=== PATIENT | male | born 1955 | race Caucasian/White ===

== ENCOUNTER 2017-06-07 13:31 | Inpatient (IN) | payer SELFPAY ==
[~2017-06-07] VITALS: Ht 172.7 cm; Wt 120.5 kg
[2017-06-07] VITALS (7 sets, daily range): BP systolic 90–124; BP diastolic 58–63; PULSE 77–94; RESP 18–20; TEMP 98.8; O2SAT 95–99
[~2017-06-07 13:31] MED LIST: AMIODARONE HCL 150 MG/3 ML VIAL IV ONE; DOPamine INJ PREMIX 500 ML IV ONE
--- NOTE | 2017-06-07 13:49 | PD ---
HPI Chief Complaint: cardiac arrhythmia Time Seen by Provider: 13:38 Travel History International Travel<30 days: No Contact w/Intl Traveler<30days: No Traveled to known affect area: No History of Present Illness HPI 62-year-old male was brought in by EMS after cardiac arrest. Patient was witnessed to have a syncopal episode. Chest compressions started by bystander. EMS was called. Patient was found to be in V. fib. Patient was defibrillated 2. Patient originally was intubated and ET tube was removed subsequently after patient woke up. Patient was transported to the ED for evaluation. Patient denies any headache. Patient does short that he had chest pain prior to the syncopal episode. Patient states that he has aching chest pain substernal now. Patient denies any Shortness of breath. Patient denies abdominal pain. Patient denies any focal weakness or numbness of extremity. Patient has history of CAD status post LA in 2007. Patient status post stent placement on aspirin 81 mg daily along with Plavix. Patient has history hypertension. Patient denies history of diabetes. Patient states that he probably has hyperlipidemia. Patient smokes cigars Daily. PFSH Social History Tobacco Use: No Allergies-Medications (Allergen,Severity, Reaction): Uncoded Allergies: PCN (Adverse Reaction, Mild, 06/07/17) Reported Meds & Prescriptions Reported Meds & Active Scripts Active Review of Systems General / Constitutional: No: Fever Eyes: No: Visual changes HENT: No: Headaches Cardiovascular: Positive: Chest Pain or Discomfort Respiratory: No: Shortness of Breath Gastrointestinal: No: Abdominal Pain Genitourinary: No: Dysuria Musculoskeletal: No: Pain Skin: No Rash Neurologic: Positive: Syncope, No: Weakness Psychiatric: No: Depression Endocrine: No: Polydipsia Hematologic/Lymphatic: No: Easy Bruising Physical Exam Narrative GENERAL: Well-nourished, well-developed patient. SKIN: Focused skin assessment warm/dry. Skin abrasion left chest wall. HEAD: Normocephalic. EYES: No scleral icterus. No injection or drainage. NECK: Supple, trachea midline. No JVD or lymphadenopathy. CARDIOVASCULAR: Regular rate and rhythm without murmurs, gallops, or rubs. RESPIRATORY: Breath sounds equal bilaterally. No accessory muscle use. GASTROINTESTINAL: Abdomen soft, non-tender, nondistended. MUSCULOSKELETAL: No cyanosis, or edema. BACK: Nontender without obvious deformity. No CVA tenderness. Neurologic exam normal. Data Data Last Documented VS Vital Signs Date Time Temp Pulse Resp B/P (MAP) Pulse Ox O2 Delivery O2 Flow Rate FiO2 06/07/17 13:43 92 18 96 Room Air 06/07/17 13:43 124/58 (80) Orders Orders Electrocardiogram (06/07/17 13:38) Complete Blood Count With Diff (06/07/17 13:38) Comprehensive Metabolic Panel (06/07/17 13:38) Creatine Kinase (Cpk) (06/07/17 13:38) Troponin I (06/07/17 13:38) Prothrombin Time / Inr (Pt) (06/07/17 13:38) Act Partial Throm Time (Ptt) (06/07/17 13:38) Urinalysis - C+S If Indicated (06/07/17 13:38) Magnesium (Mg) (06/07/17 13:38) Thyroid Stimulating Hormone (06/07/17 13:38) Phosphorus (Po4) (06/07/17 13:38) Chest, Single Ap (06/07/17 13:38) Iv Access Insert/Monitor (06/07/17 13:38) Ecg Monitoring (06/07/17 13:38) Oximetry (06/07/17 13:38) Aspirin (Aspirin) (06/07/17 15:15) Nitroglycerin 2% Oint (Nitroglycerin 2% (06/07/17 15:15) Heparin-D5w 25,000 U/250 Ml (Heparin-D5w (06/07/17 15:15) Ondansetron Inj (Zofran Inj) (06/07/17 15:30) Consult Cardiology (06/07/17 ) Cbc No Diff, Includes Plts (06/10/17 06:00) Occult Blood (Hemoccult) Stool (06/07/17 15:46) Heparin Inj (Heparin Inj) (06/07/17 16:00) (Hub Use Only)Inp Phy Cons/Ref (06/07/17 ) Admit Order (Ed Use Only) (06/07/17 16:07) Labs Laboratory Tests Test 06/07/17 13:50 White Blood Count 9.8 TH/MM3 Red Blood Count 4.82 MIL/MM3 Hemoglobin 15.8 GM/DL Hematocrit 45.7 % Mean Corpuscular Volume 94.8 FL Mean Corpuscular Hemoglobin 32.9 PG Mean Corpuscular Hemoglobin Concent 34.7 % Red Cell Distribution Width 13.2 % Platelet Count 194 TH/MM3 Mean Platelet Volume 8.1 FL Neutrophils (%) (Auto) 57.8 % Lymphocytes (%) (Auto) 28.1 % Monocytes (%) (Auto) 9.9 % Eosinophils (%) (Auto) 3.9 % Basophils (%) (Auto) 0.3 % Neutrophils # (Auto) 5.6 TH/MM3 Lymphocytes # (Auto) 2.7 TH/MM3 Monocytes # (Auto) 1.0 TH/MM3 Eosinophils # (Auto) 0.4 TH/MM3 Basophils # (Auto) 0.0 TH/MM3 CBC Comment DIFF FINAL Differential Comment Prothrombin Time 11.0 SEC Prothromb Time International Ratio 1.0 RATIO Activated Partial Thromboplast Time 23.7 SEC Blood Urea Nitrogen 20 MG/DL Creatinine 1.37 MG/DL Random Glucose 158 MG/DL Total Protein 7.9 GM/DL Albumin 3.9 GM/DL Calcium Level 9.0 MG/DL Phosphorus Level 7.6 MG/DL Magnesium Level 2.3 MG/DL Alkaline Phosphatase 73 U/L Aspartate Amino Transf (AST/SGOT) 143 U/L Alanine Aminotransferase (ALT/SGPT) 161 U/L Total Bilirubin 0.4 MG/DL Sodium Level 137 MEQ/L Potassium Level 4.5 MEQ/L Chloride Level 102 MEQ/L Carbon Dioxide Level 20.2 MEQ/L Anion Gap 15 MEQ/L Estimat Glomerular Filtration Rate 53 ML/MIN Hemoglobin A1c 5.9 % Total Creatine Kinase 193 U/L Troponin I 0.10 NG/ML Thyroid Stimulating Hormone 3rd Gen 9.200 uIU/ML [facility] Medical Decision Making Medical Screen Exam Complete: Yes Emergency Medical Condition: Yes Interpretation(s) EKG shows sinus rhythm with ST depression on anterior lateral leads. CBC within normal limit. By helicopter dispatcher 20.2. BUN 20. Creatinine 1.37. GFR 53. Glucose 158. Phosphorous 7.6. AST 143. ALT 161. Troponin 0.1. TSH 9.2. Chest x- ray shows no acute consolidation. Differential Diagnosis Differential diagnosis including cardiac arrhythmia, LA, electrolyte imbalance. Narrative Course 62-year-old male status post cataract arrest secondary to V. fib. Patient was defibrillated twice. Patient's in sinus rhythm now. History CAD status post LA in the past. Aspirin 325 mg by mouth given. Nitro paste 1 inch on chest wall. Heparin bolus and drip given. Patient had an episode of syncope with V. fib and V. tach on monitor. Patient did regain sinus rhythm without intervention. Manager Environmental Dr. Perdomo was informed. STEMI alert was called. Patient was taken to Associate Technician. Critical Care Narrative Aggregate critical care time was 60 minutes. Time to perform other separately billable procedures was not included in the critical care time. My time did not include minutes spent treating any other patients simultaneously or on activities that did not directly contribute to the patient's treatment. The services I provided to this patient were to treat and/or prevent clinically significant deterioration that could result in: I provided critical care services requiring my management, as noted below: Chart data review, documentation time, medication orders and management, vital sign assessments/reviewing monitor data, ordering and reviewing lab tests, ordering and interpreting/reviewing x-rays and diagnostic studies, care of the patient and discussion of the patient with the admitting physicians. Diagnosis Primary Impression: Ventricular fibrillation Additional Impression: Cardiac arrest Admitting Information Admitting Physician Requests: Admit Lukasz Durbin MD Jun 07, 2017 13:49
[2017-06-07 14:10] LABS: AUTOMATED NEUTROPHIL # 5.6 TH/MM3 (1.8-7.7); BASOPHIL % 0.3 % (0.0-2.0); EOSINOPHIL # 0.4 TH/MM3 (0-0.4); EOSINOPHIL % 3.9 % (0.0-4.0); HEMATOCRIT 45.7 % (39.0-51.0); HEMO FLAGS DIFF FINAL; LYMPH % 28.1 % (9.0-44.0); LYMPHOCYTE # 2.7 TH/MM3 (1.0-4.8); MEAN CELL VOLUME 94.8 FL (80.0-100.0); MEAN CORPUSCULAR HEMOGLOBIN 32.9 PG (27.0-34.0); MEAN CORPUSCULAR HGB CONC 34.7 % (32.0-36.0); MONO % 9.9 % (0.0-8.0); NEUT % 57.8 % (16.0-70.0); PLATELET COUNT 194 TH/MM3 (150-450); RED BLOOD COUNT 4.82 MIL/MM3 (4.50-5.90); RED CELL DISTRIBUTION WIDTH 13.2 % (11.6-17.2); WHITE BLOOD COUNT 9.8 TH/MM3 (4.0-11.0)
[2017-06-07 14:17] LABS: APTT (PATIENT) 23.7 SEC (24.3-30.1)
[2017-06-07 14:37] LABS: ALT (GPT) 161 U/L (12-78)
[2017-06-07 14:38] LABS: ANION GAP 15 MEQ/L (5-15); AST (GOT) 143 U/L (15-37); BICARBONATE 20.2 MEQ/L (21.0-32.0); BLOOD UREA NITROGEN 20 MG/DL (7-18); CHLORIDE 102 MEQ/L (98-107); GLOMERULAR FILTRATION RATE 53 ML/MIN (>89); MAGNESIUM 2.3 MG/DL (1.5-2.5); POTASSIUM 4.5 MEQ/L (3.5-5.1); SODIUM (NA) 137 MEQ/L (136-145)
[2017-06-07 14:46] LABS: ALKALINE PHOSPHATASE 73 U/L (45-117); CREATINE KINASE 193 U/L (39-308); TOTAL BILIRUBIN ADULT 0.4 MG/DL (0.2-1.0)
[2017-06-07] MEDS ORDERED: ASPIRIN 325 MG TAB PO ONE (15:15)
[2017-06-07] MEDS ORDERED: NITROGLYCERIN 2% OINT 1 GM PACKET TOPICAL ONE (15:15)
[2017-06-07] MEDS ORDERED: ONDANSETRON HCL 4 MG/2 ML VIAL IV PUSH ONE (15:30)
--- NOTE | 2017-06-07 15:47 | RADRPT ---
EXAM DATE/TIME: 06/07/2017 15:29 [place] COMPARISON: No previous studies available for comparison. INDICATIONS : Shortness of breath. MEDICAL HISTORY : None. SURGICAL HISTORY : None. ENCOUNTER: Initial ACUITY: 1 day PAIN SCORE: 5/10 LOCATION: Left upper chest FINDINGS: A single view of the chest demonstrates the lungs to be symmetrically aerated without evidence of mas s, infiltrate or effusion. The cardiomediastinal contours are unremarkable. Degenerative changes in the lower thoracic spine.. CONCLUSION: The lungs are clear. Willie Vasquez MD on June 07, 2017 at 15:45 Board Certified Radiologist. This report was verified electronically.
[2017-06-07] MEDS: HEPARIN-D5W 25,000 U/250 ML 250 ML IV PRN (15:52)
[2017-06-07] MEDS ORDERED: HEPARIN SODIUM - IV 10,000 UNITS/10 ML VIAL IV ONE (16:00)
[2017-06-07] MEDS: SODIUM CHLOR 0.9% 1000 ML INJ 1,000 ML IV SCH (16:33)
[2017-06-07] MEDS ORDERED: MORPHINE SULFATE 4 MG/ML INJ IV PUSH PRN (16:45)
[2017-06-07] MEDS ORDERED: MAGNESIUM HYDROXIDE SUSP 30 ML CUP PO PRN (16:45)
[2017-06-07] MEDS ORDERED: GLUCAGON 1 MG/ML VIAL OTHER PRN (16:45)
[2017-06-07] MEDS ORDERED: DEXTROSE 50% IN WATER 50 ML VIAL(D50) IV PUSH PRN (16:45)
[2017-06-07] MEDS ORDERED: ONDANSETRON HCL 4 MG/2 ML VIAL IV PUSH PRN (16:45)
[2017-06-07] MEDS ORDERED: CHLORHEXIDINE GLUCONATE 2 % 1 PACK (2 CLOTHS) TOP PRN (16:45)
[2017-06-07] MEDS ORDERED: SODIUM CHLORIDE 0.9% FLUSH 10 ML FLUSH IV FLUSH PRN (16:45)
[2017-06-07] MEDS ORDERED: SENNOSIDES 8.6 MG TAB PO PRN (16:45)
[2017-06-07] MEDS ORDERED: ACETAMINOPHEN 325 MG TAB PO PRN (16:45)
[2017-06-07] MEDS ORDERED: MISCELLANEOUS NURSING INFORMATION XX SCH (16:45)
[2017-06-07] MEDS ORDERED: RESP: ALBUTEROL 2.5 MG/IPRATROPIUM 0.5 MG NEB (PRN) INH (16:45)
[2017-06-07] MEDS ORDERED: BISACODYL 10 MG SUPP RECTAL PRN (16:45)
[2017-06-07] MEDS ORDERED: LACTULOSE SYRUP 20 GM/30 ML CUP PO PRN (16:45)
--- NOTE | 2017-06-07 16:46 | HHI.HP ---
HPI Service Critical Care Medicine Primary Care Physician Unknown Admission Diagnosis ventricular fibrillation Diagnosis: Travel History International Travel<30 Days: No Contact w/Intl Traveler <30 Da: No Traveled to Known Affected Are: No History of Present Illness HPI This is a 62-year-old male was brought in by EMS after cardiac arrest. The patient is from [place] and was at the [facility] [employer] walking around when he had a syncopal episode. A bystander began chest compressions and an AED was located, the rhythm revealed Vfib and the patient was defibrillated 2. Upon EMS arrival the patient was intubated, the patient woke up and self extubated. The patient was transported to the ED for evaluation. Patient states that he has aching chest pain. The patient medical history is significant for CAD status post TN in 2007. Patient status post stent placement on dual antiplatelet therapy , aspirin 81 mg daily along with Plavix. Patient has history hypertension. Cardiology was consulted, Dr. Perdomo, the patient was placed on a heparin infusion and the ED, critical care medicine was consulted for management. History PFSH Allergies-Medications Allergies-Medications (Allergen,Severity, Reaction): Uncoded Allergies: PCN (Adverse Reaction, Mild, 06/07/17) ROS Review of Systems General / Constitutional: No: Fever Eyes: No: Visual changes HENT: No: Headaches Cardiovascular: Positive: Chest Pain or Discomfort Respiratory: No: Shortness of Breath Gastrointestinal: No: Abdominal Pain Genitourinary: No: Dysuria Musculoskeletal: No: Pain Skin: No Rash Neurologic: Positive: Syncope, No: Weakness Psychiatric: No: Depression Endocrine: No: Polydipsia Hematologic/Lymphatic: No: Easy Bruising Review of Systems Cardiovascular: COMPLAINS OF: Chest pain Gastrointestinal: COMPLAINS OF: Nausea Past Family Social History Allergies: Uncoded Allergies: PCN (Adverse Reaction, Mild, 06/07/17) Physical Exam Vital Signs Vital Signs Date Time Temp Pulse Resp B/P (MAP) Pulse Ox O2 Delivery O2 Flow Rate FiO2 06/07/17 13:43 92 18 96 Room Air 06/07/17 13:43 96 Room Air 06/07/17 13:43 90 18 124/58 (80) 97 Room Air 06/07/17 13:36 94 18 95 Laboratory Laboratory Tests Test 06/07/17 13:50 White Blood Count 9.8 Red Blood Count 4.82 Hemoglobin 15.8 Hematocrit 45.7 Mean Corpuscular Volume 94.8 Mean Corpuscular Hemoglobin 32.9 Mean Corpuscular Hemoglobin Concent 34.7 Red Cell Distribution Width 13.2 Platelet Count 194 Mean Platelet Volume 8.1 Neutrophils (%) (Auto) 57.8 Lymphocytes (%) (Auto) 28.1 Monocytes (%) (Auto) 9.9 Eosinophils (%) (Auto) 3.9 Basophils (%) (Auto) 0.3 Neutrophils # (Auto) 5.6 Lymphocytes # (Auto) 2.7 Monocytes # (Auto) 1.0 Eosinophils # (Auto) 0.4 Basophils # (Auto) 0.0 CBC Comment DIFF FINAL Differential Comment Prothrombin Time 11.0 Prothromb Time International Ratio 1.0 Activated Partial Thromboplast Time 23.7 Blood Urea Nitrogen 20 Creatinine 1.37 Random Glucose 158 Total Protein 7.9 Albumin 3.9 Calcium Level 9.0 Phosphorus Level 7.6 Magnesium Level 2.3 Alkaline Phosphatase 73 Aspartate Amino Transf (AST/SGOT) 143 Alanine Aminotransferase (ALT/SGPT) 161 Total Bilirubin 0.4 Sodium Level 137 Potassium Level 4.5 Chloride Level 102 Carbon Dioxide Level 20.2 Anion Gap 15 Estimat Glomerular Filtration Rate 53 Total Creatine Kinase 193 Troponin I 0.10 Thyroid Stimulating Hormone 3rd Gen 9.200 Result Diagram: 06/07/17 1350 06/07/17 1350 Imaging Last Impressions Chest X-Ray 06/07/17 1338 Signed Impressions: Service Date/Time: Wednesday, June 07, 2017 15:29 - CONCLUSION: The lungs are clear. Willie Vasquez MD Septic Shock Reassessment Heart: Regular rate and rhythm Lungs: Clear Skin: Warm, Dry Peripheral Pulses: Bounding Right Radial Bounding Left Radial Caprini VTE Risk Assessment Caprini VTE Risk Assessment: Mod/High Risk (score >= 2) Caprini Risk Assessment Model Point Value = 1 Point Value = 2 Point Value = 3 Point Value = 5 Age 41-60 Minor surgery BMI > 25 kg/m2 Swollen legs Varicose veins or History of unexplained or recurrent spontaneous Oral contraceptives or hormone replacement Sepsis (< 1 month) Serious lung disease, including pneumonia (< 1 month) Abnormal pulmonary function Acute myocardial infarction Congestive heart failure (< 1 month) History of inflammatory bowel disease Medical patient at bed rest Age 61-74 Arthroscopic surgery Major open surgery (> 45 min) Laparoscopic surgery (> 45 min) Malignancy Confined to bed (> 72 hours) Immobilizing plaster cast Central venous access Age >= 75 History of VTE Family history of VTE Factor V Leiden Prothrombin [id number] Lupus anticoagulant Anticardiolipin antibodies Elevated serum homocysteine Heparin-induced thrombocytopenia Other congenital or acquired thrombophilia Stroke (< 1 month) Elective arthroplasty Hip, pelvis, or leg fracture Acute spinal cord injury (< 1 month) Prophylaxis Regimen Total Risk Factor Score Risk Level Prophylaxis Regimen 0-1 Low Early ambulation 2 Moderate Order ONE of the following: *Sequential Compression Device (SCD) *Heparin 5000 units SQ BID 3-4 Higher Order ONE of the following medications: *Heparin 5000 units SQ TID *Enoxaparin/Lovenox 40 mg SQ daily (WT < 150 kg, CrCl > 30 mL/min) *Enoxaparin/Lovenox 30 mg SQ daily (WT < 150 kg, CrCl > 10-29 mL/min) *Enoxaparin/Lovenox 30 mg SQ BID (WT < 150 kg, CrCl > 30 mL/min) AND/OR *Sequential Compression Device (SCD) 5 or more Highest Order ONE of the following medications: *Heparin 5000 units SQ TID (Preferred with Epidurals) *Enoxaparin/Lovenox 40 mg SQ daily (WT < 150 kg, CrCl > 30 mL/min) *Enoxaparin/Lovenox 30 mg SQ daily (WT < 150 kg, CrCl > 10-29 mL/min) *Enoxaparin/Lovenox 30 mg SQ BID (WT < 150 kg, CrCl > 30 mL/min) AND *Sequential Compression Device (SCD) Assessment and Plan Assessment and Plan Assessment This is a 62-year-old morbidly obese male with a past medical history significant for coronary artery disease status post V. fib arrest. Plan for admission to ICU, close monitoring, tentative plan for cardiac catheterization possibly in a.m.. Admit to ICU. Plan Neurologic: Chest pain secondary to chest compressions Neurochecks per ICU protocol Ofirmev 1 g every 6 hours 24 hours Morphine 2 mg every 3 hours when necessary for breakthrough pain on scale of 7- 10 Respiratory: Maintain O2 sat greater than 92% Place patient on O2 at 2 L nasal cannula Duo nebs every 4 hours when necessary for wheezing Cardiovascular: Angina Coronary artery disease Status post V. fib arrest Status post TN 2007 with stent placement Cardiology consulted -Dr. Perdomo Heparin infusion, consider /have available nitroglycerin drip Plan for cardiac catheterization in the near future, Renal: Place condom catheter -- Strict I/Os FEN/GI: Nausea Morbid obesity Electrolyte disturbances CHUY Begin hydration normal saline at 84 cc/hour Zofran every 4 hours when necessary for nausea Maintain nothing by mouth status Famotidine GI prophylaxis Obtain CMP Obtain lipid panel Phos 7.6, creatinine kinase 193 Creatinine 1.37-continue to monitor Heme/ID: Monitor CBC Endocrine: Glucose monitoring per ICU protocol Obtain hemoglobin A1c -- SSI Prophylaxis: GI Prophylaxis Famotidine twice a day DVT Prophylaxis -- SCDs Heparin infusion Lines: Peripheral IVs providing adequate access Dispo: This patient remains critically ill with one or more organ systems which are or may become a threat to life. I have spent in excess of 44 minutes discontinuously in the care and management of this patient. This time is exclusive of procedures, and includes, but is not limited to, evaluation of the patient, review of the medical record, discussions with family, consultants, nursing staff, or respiratory therapy, and documentation in the medical record. Code Status Full Discussed Condition With Discussed with Dr. Perdomo, Dr Durbin and ED RN at bedside. Chelsea Ramos MD Jun 07, 2017 16:46
--- NOTE | 2017-06-07 17:31 | MB ---
cc: CASPER KRAUS DO DATE OF CONSULTATION 06/07/17 REASON FOR CONSULTATION V-fib arrest. HISTORY OF PRESENT ILLNESS Nathaniel Villa is a pleasant 62-year-old male who presented to [facility] via EMS after a syncopal episode and found to be in V-fib arrest. The patient is down with his friend from [place], [place] for the car show. He was walking around the car show and his friend was at the other side of the stadium supposedly. Per the patient, he fell off and told someone he felt bad and they were trying to get a chair for him and he sat down and then passed out. He was found to not have a pulse by an off-duty EMS who was helping him and so chest compressions were started. EMS on duty showed up and was he found to be in V-fib arrest. He was intubated and defibrillated twice. After the second defibrillation, he was noted to be in sinus rhythm. The patient subsequently was waking up and the ET tube was removed. In seeing him, he is currently hemodynamically stable and does have some chest pain that he feels more with trying to lift his body up out of bed or pressing on the center of his chest. He denies any shortness of breath. PAST MEDICAL HISTORY 1. Coronary artery disease. 2. Hypertension 3. Diabetes mellitus 4. Hyperlipidemia 5. Tobacco abuse. PAST SURGICAL HISTORY Myocardial infarction and stenting he believes of his possible RCA (2007) ALLERGIES PENICILLIN MEDICATIONS The patient is unsure of his medications but knows that he is on 1. Aspirin. 2. Plavix. FAMILY HISTORY Denies premature coronary artery disease or sudden cardiac within the family. SOCIAL HISTORY The patient drinks occasionally. He smokes cigars daily. REVIEW OF SYSTEMS 14-systems were reviewed including osteopathic. Pertinent positives and negatives above otherwise negative. PHYSICAL EXAMINATION VITAL SIGNS: Temperature 98.0, heart rate 90, blood pressure 124/58, respirations 18, pulse ox 96% on room air. GENERAL: The patient appears well. No acute distress, alert, awake and oriented x2 (person and place). Extraocular muscles intact. Mucous membranes moist. NECK: Supple. No JVD at 45 degrees. No carotid bruits heard bilaterally. Carotid upstroke is brisk in nature. HEART: Regular rate and rhythm. Positive first and second heart sounds with no murmurs, gallops or rubs. LUNGS: Clear to auscultation bilaterally. No wheezes, rales or rhonchi. ABDOMEN: Soft, nontender, nondistended, no organomegaly noted. EXTREMITIES: No clubbing, cyanosis or edema. Femoral and distal pulses intact bilaterally. NEUROLOGIC: No focal deficits. OSTEOPATHIC: Mild lordosis. No kyphoscoliosis or paraspinal tender points. LABORATORY FINDINGS Hemoglobin 15.8, hematocrit 45.7, platelets 194. Potassium 4.5, BUN 20, creatinine 1.37, AST 143, ALT 161, troponin 0.1. CARDIOLOGY STUDIES Electrocardiogram (April 07, 2017 at 13:40) sinus rhythm, ST-T wave changes throughout possibly due to ischemia. IMPRESSION 1. V-fib arrest, possibly due to ischemia. 2. Abnormal EKG. 3. History of coronary artery disease with myocardial infarction. 4. Possible acute kidney injury versus chronic kidney disease. 5. Elevated LFTs possibly secondary to dehydration, acute event or fatty liver disease. 6. Tobacco abuse. 7. History of hypertension. RECOMMENDATIONS 1. Mr. Villa had what appears to be V- fib arrest and this possibly may be due to ischemia. 2. Overall, he is hemodynamically and electrically stable at this time. He is having some minor chest pain, although this appears to be reproducible and most likely due to receiving CPR. 3. We will start him on a heparin drip as well as a nitroglycerin drip. We will hold on Amiodarone at this time due to his elevated LFTs. 4. We will gently hydrate him. 5. He will be placed on his aspirin and Plavix therapy. 6. He will need to undergo an ischemic evaluation by cardiac catheterization. 7. I discussed risks, benefits and alternatives with him and his friend and he consents as such. 8. If at any time he becomes electrically or hemodynamically unstable or has chest pain unrelieved with medication, he will need to go the cardiac cath lab manager more emergently. 9. We will check a 2-D echo to look at his overall left ventricular function, cardiac structure and possible valvopathies. Further recommendations will be made based on the hospital course. Thank you for allowing me to see Nathaniel Villa. If there are any questions, please do not hesitate to call. Casper Kraus DO VGP/SA /4:52 PM /5:18 PM MTDD
[2017-06-07] MEDS ORDERED: HEPARIN-NS/PF INJ 1,500 ML ONE (17:56)
[2017-06-07] MEDS ORDERED: MIDAZOLAM HCL 2 MG/2 ML VIAL ONE (18:28)
[2017-06-07] MEDS ORDERED: PHENYLEPH/NS 1000 MCG/10 ML SYR ONE (18:38)
[2017-06-07] MEDS ORDERED: SODIUM CHLOR 0.9% 1000 ML INJ 1,000 ML IV SCH (19:17)
[2017-06-07] MEDS ORDERED: AMIODARONE INJ 150 MG in DEXTROSE 5% IN WATER 100ML INJ 100 ML IV ONE ×2 (19:17)
--- NOTE | 2017-06-07 19:27 | CATHPROC ---
[employer] HIS Report Study Information Study Number Admission Scheduled Start Study Start [id number] Jun 07 2017 4:10PM 06/07/2017 Jun 07 2017 5:57PM [place] [facility] Cardiac Catheterization Admit Source Facility Department Emergency department [facility] - Lead Burner Apprentice Physician and Clinical Staff Initial Casper Esteban Lead Rider April Tejada RN Lead Rider Derek RN, [place] RecordKarely Rivera,RT(R) Scrub Sergio Healy,RT(R) Procedures Performed Procedure Location (Site) Vessel Name Coronary Angiograms LCA Left Coronary Coronary Angiograms RCA Right Coronary IABP Fem Art (right) Femoral Art L Heart Cath Equipment Time Mineral Wool Insulation Supervisor Description Size Mfg Part Number Used/Scraped TRANSDUCER, TRGameleonAVE [id number] 18:08 CASTELLON COLEY * Used W/MADIECK *[id number] INTRODUCER SET, 18:09 [employer] FR 5 [id number] *[id number] Used MICROPUNCTURE, STIFFENED [id number] *[id number] BALLOON, FR8 50CC SENSATION [id number] 18:46 MAQUET FR 8 50CC Used PLUS 01U [id number] 18:08 [employer] PACK, CCL CUSTOM * Used *[id number] 18:27 MEDTRONIC JL 4.0 DXTERITY CATHETER FR 5 [id number] Used [id number] 18:09 Propel IT MEDICAL SHEATH, FR6.5 PRELUDE 11CM FR 6.5 [id number] Used *[id number] 18:08 [employer]el IT MEDICAL WIRE, 3MMJ .035 180CM 180CM Used *[id number] 18:08 NAMIC MANIFOLD, 4 PORT * Used *[id number] 18:08 NYCOMED OMNIPAQUE, 350 MG, 150ML 150ML [id number] Used [id number] 18:08 [email or web address] BLANKET,WARM AIR CCL * Used *[id number] Equipment Model, Serial, Lot Number and Expiration Data Description Model Number Serial Number Lot Number Expiration Date JL 4.0 DXTERITY CATHETER [id number] 04-01-2020 History: Current Medications Medication Dosage/Unit Route Frequency Last Date/Time Taken ASA LOPRESSOR PLAVIX History: Allergies Allergy Reaction PCN History: Risk Factors Hypertension Yes Prior Valve Prior PCI Prior CABG Surgery No Yes No History: Symptoms/Diagnosis Selection Items Chest pain History: Stress Tests Stress or Imaging Studies Performed No History: Other Disease Selection Items CAD Labs Hgb (g/dl) Hct (%) WBC (l/cumm) Platelets (thousands) 11.60-17.00 35.00-51.00 4.00-11.00 150.00-450.00 15.8 45.7 9.8 194 Glucose (mg/dl) BUN (mg/dl) Creatinine (mg/dl) BUN:Creatinine (1:x) 74.00-106.00 7.00-18.00 0.50-1.30 10.00-20.00 158 20 1.3 15.4 Na (meq/l) K (meq/l) 136.00-145.00 3.50-5.10 137 4.5 INR (PTT:PT) 0.90-1.10 1 Troponin I (ng/ml) 0.02-0.05 0.1 Medication Medication Total Dose (Bolus/Oral) Medication Total Dosage/Unit 1% XYLOCAINE 20 mL FENTANYL 25 mcg VERSED 0.5 mg Medications (Bolus/Oral) Medication Time Given Dosage/Unit Administered By Reason 1% XYLOCAINE 06/07/2017 6:28:35 PM 20 mL Casper Perdomo 20 mL 1% XYLOCAINE given in lab by Casper Perdomo in Right Groin via Subcutaneous. VERSED 06/07/2017 6:30:36 PM 0.5 mg [place] Reed RN 0.5 mg VERSED given in lab by [place] Reed RN in Left Hand via Peripheral IV. Ordered by Zeenat Perdomo FENTANYL 06/07/2017 6:30:45 PM 25 mcg [place] Reed RN 25 mcg FENTANYL given in lab by [place] Reed RN in Left Hand via Peripheral IV. Ordered by Casper Perdomo Medication (Drip) Medication Time Given Dosage/Unit Concentration/Unit Diluent (ml) Solutio n HEPARIN DRIP 06/07/2017 7:08:38 PM 1000 units/hr 60482 units 250 D5W 1000 units/hr HEPARIN DRIP given in lab by April Tejada RN in Right Antecubital via Peripheral IV. Pump/Drip Flow = 10 ml/hr [place] [address] units in 250 ml. Ordered by Casper Perdomo IV Solutions 06/07/2017 6:21:21 PM 50 mL (IV) NaCl .9 IV Solutions given in lab by [place] Reed RN in Left Hand via Peripheral IV. Pump/Drip Flow using NaC l .9. Initial Case Assessment Cardiovascular HR Rhythm NIBP Chest Pain 87 SR 116/43 0 Skin color Skin Normal Warm Dry Circulatory - Right Pulses Dorsalis Pedis Femoral 2 2 Scale (0,1,2,3,4,d) Circulatory - Left Pulses Dorsalis Pedis Femoral 1 1 Scale (0,1,2,3,4,d) Neurological State Oriented to time-place- Alert Moves all extremities person Respiration - General Respiration Rate SpO2 (%) O2 (lpm) (B/min) 14 96 2 Final Case Assessment Cardiovascular HR Rhythm NIBP Chest Pain 68 SR 118/83 0 Skin color Skin Normal Warm Dry Circulatory - Right Pulses Dorsalis Pedis Femoral 2 2 Scale (0,1,2,3,4,d) Circulatory - Left Pulses Dorsalis Pedis Femoral 1 1 Scale (0,1,2,3,4,d) Neurological State Oriented to time-place- Alert Moves all extremities person Respiration - General Respiration Rate SpO2 (%) O2 (lpm) (B/min) 18 98 2 Chronological Log Time Study Chronological Log 18:10:44 Patient arrived via Bed. 18:20:09 Patient Name, D.O.B, / Armband Verified By R.N. 18:20:24 Pre-op and post- op instructions given; patient acknowledges understanding of instructions . 18:20:35 Reference ECG taken 18:20:48 Patient has been NPO for Less than 6Hrs. 18:21:00 Patient Warmer Placed on the Table. 18:21:01 Disposable Defibrillator Pads Placed On Patient. 18:21:02 Manolo Prominences Protected 18:21:18 A # 18 IV was noted in the Antecubital (right). Grade = 0 18:21:19 A # 18 IV was noted in the Hand (left). Grade = 0 18:21:21 IV Solutions given in lab by [place] Reed RN in Left Hand via Peripheral IV. Pump/Drip Philippe w using NaCl .9. 18:21:42 History and physical on the chart or being dictated. Assessment: Initial Case, HR=87 BPM, Rhythm=SR, XBQD=471/43 mmhg, Chest Pain=0, Color=Normal, Skin = Warm, Dry Right Pulses: Sudhir Ped=2, Femoral=2 18:21:44 Left Pulses: Sudhir Ped=1, Femoral=1 Neurological: State=Alert, Ox3, GREWAL Respiration: Resp=14 B/min, SpO2=96 %, O2=2 lpm Vitals capture started with the following parameters, Patient=Adult, Interval=5 min, Initial P ltbhvel=351 mmHg, 18:21:45 Deflation Rate=5 mmHg, Cuff placed on Left Arm 18:22:32 HR=86 bpm, JDHX=568/43 mmhg, SpO2=95.0 %, Resp=20 B/min 18:22:54 Bilateral groins prepped with 2% chlorhexidine, and draped after a 3 minute waiting time. 18:25:29 Pressure channel 1 zeroed. Time Out. Correct patient, correct procedure, correct physician, power injector loaded, or not loaded with contrast with 18:27:25 surgical team present. Time Out Concurred by MD and individual staff in procedure. 18:27:57 Case Start 18:28:35 20 mL 1% XYLOCAINE given in lab by Casper Perdomo in Right Groin via Subcutaneous. 18:29:01 HR=84 bpm, NIBP=98/42 mmhg, SpO2=98.0 %, Resp=17 B/min 18:30:36 0.5 mg VERSED given in lab by [place] Reed RN in Left Hand via Peripheral IV. Ordered by Casper Fraire 18:30:45 25 mcg FENTANYL given in lab by [place] Reed RN in Left Hand via Peripheral IV. Ordered by Casper Perdomo. 18:32:14 HR=85 bpm, LXTL=719/61 mmhg, SpO2=97.0 %, Resp=11 B/min 18:32:21 Access site was Right Femoral Artery. A INTRODUCER SET, MICROPUNCTURE, STIFFENED FR 5 was advanced into the Fem Art (right) using the 18:32:42 Percutaneous technique. 18:32:48 A SHEATH, FR6.5 PRELUDE 11CM FR 6.5 was advanced into the Fem Art (right) using the Percuta neous technique. 18:34:25 An injection in the Fem Art (right) was made through the SHEATH, FR6.5 PRELUDE 11CM FR 6.5. 18:34:34 NIBP STAT measurement started. A JR 4.0 INFINITI CATHETER FR 5 was advanced over a wire. OMNIPAQUE, 350 MG, 150ML 150ML was us ed for 18:35:23 injections. 18:35:49 HR=81 bpm, CXVH=627/59 mmhg, SpO2=98.0 %, Resp=22 B/min Recorded Pressure: LV, HR=62, Condition=Condition 1 18:36:29 (Left Ventricle) LV 88/7/21 Recorded Pressure: LV, Ao, HR=83, Condition=Condition 1 18:36:45 (Left Ventricle) LV 86/4/17, (Aorta) Ao 76/49/62 18:37:11 Pressure channel 1 zeroed. 18:37:19 HR=41 bpm, NIBP=96/60 mmhg, SpO2=97.0 %, Resp=13 B/min 18:38:06 The RCA was injected and visualized at various angles. OMNIPAQUE, 350 MG, 150ML 150ML used . After removing the current catheter a JL 4.0 DXTERITY CATHETER FR 5 was advanced over a WIRE, 3 MMJ .035 180CM 18:38:26 180CM. Recorded Pressure: Ao, HR=62, Condition=Condition 1 18:39:59 (Aorta) Ao 78/53/63 18:40:24 The LCA was injected and visualized at various angles. OMNIPAQUE, 350 MG, 150ML 150ML used . 18:42:16 HR=82 bpm, QWGK=666/63 mmhg, SpO2=97.0 %, Resp=11 B/min 18:44:55 Catheter was removed 18:47:15 HR=70 bpm, AATN=350/63 mmhg, SpO2=99.0 %, Resp=26 B/min 18:48:40 Sheath exchanged for intra-aortic balloon insertion. An BALLOON, FR8 50CC SENSATION PLUS FR 8 50CC was advanced to the descending aorta. Proper plac ement was 18:49:59 confired under fluoroscopy and the balloon was sutured in place. Ratio = 1. Augmented BP 90/60 18:52:16 HR=84 bpm, CLXT=923/73 mmhg, SpO2=99.0 %, Resp=18 B/min 18:57:17 HR=34 bpm, BYFI=932/83 mmhg, SpO2=98.0 %, Resp=18 B/min 19:00:00 Case End 19:02:16 HR=68 bpm, GHHP=040/87 mmhg, SpO2=98.0 %, Resp=14 B/min 19:08:06 Vitals capture stopped. 1000 units/hr HEPARIN DRIP given in lab by April Tejada, RN in Right Antecubital via Peripher al IV. Pump/Drip Flow 19:08:38 = 10 ml/hr [place] [address] units in 250 ml. Ordered by Octavio Perdomo 19:09:02 Sterile dressing applied to site 19:09:03 No case complications noted. 19:09:07 Bedside Report will be given. 19:09:19 A Left Heart Cath was performed. Assessment: Final Case, HR=68 BPM, Rhythm=SR, BJAE=651/83 mmhg, Chest Pain=0, Color=Normal, Sk in = Warm, Dry Right Pulses: Sudhir Ped=2, Femoral=2 19:09:36 Left Pulses: Sudhir Ped=1, Femoral=1 Neurological: State=Alert, Ox3, GREWAL Respiration: Resp=18 B/min, SpO2=98 %, O2=2 lpm 19:15:00 Patient moved to [facility] End Study - Contrast Media Used In Study Contrast Total Opened (mL) Total Used (mL) Total Wasted (mL) Omnipaque 50 50 0 End Study - Maximum Contrast Load Max Contrast Load (mL) 461.5 End Study - Radiation Exposure Fluoro Time (minutes) 3.1 End Study - Patient Disposition Complications Transferred To Interventional Outcome No Telemetry Bed No attempt made
[2017-06-07] MEDS: INSULIN ASPART SUPPLEMENTAL SCALE SQ SCH (21:00)
[2017-06-07] MEDS: FAMOTIDINE 20 MG/2 ML VIAL IV PUSH SCH (21:13)
[2017-06-07] MEDS: DOCUSATE SODIUM 50 MG/SENNA 8.6 MG TAB PO SCH (21:14)
[2017-06-07] MEDS: METOPROLOL TARTRATE 25 MG TAB PO SCH (21:14)
[2017-06-07] MEDS: SODIUM CHLORIDE 0.9% FLUSH 10 ML FLUSH IV FLUSH SCH (21:16)
[2017-06-07] MEDS: oxyCODONE/ACETAMINOPHEN 5 MG/325 MG TAB PO PRN (21:43)
[2017-06-07] MEDS: AMIODARONE INJ 450 MG in DEXTROSE 5% IN WATE(EXCEL) INJ 241 ML IV PRN ×2 (21:44)
--- NOTE | 2017-06-07 23:28 | EKG ---
Date Performed: 06/07/2017 Time Performed: 17:18:11 PTAGE: 62 years EKG: Sinus rhythm WITH OCCASIONAL SUPRAVENTRICULAR PREMATURE COMPLEXES MARKED LEFT AXIS DEVIATION INTRAVENTRICULAR CON DUCTION DELAY POSSIBLE LEFT VENTRICULAR HYPERTROPHY ABNORMAL ECG PREVIOUS TRACING : 06/07/2017 13.40 Compared to the previous tracing, widening of the QRS compl ex, with ST changes DOCTOR: Casper Perdomo Interpretating Date/Time 06/07/2017 23:28:09
--- NOTE | 2017-06-07 23:40 | EKG ---
Date Performed: 06/07/2017 Time Performed: 13:40:07 PTAGE: 62 years EKG: Sinus rhythm ST DEPRESSION, CONSIDER SUBENDOCARDIAL INJURY ABNORMAL ECG NO PREVIOUS TRACING DOCTOR: Casper Perdomo Interpretating Date/Time 06/09/2017 07:32:37
[2017-06-07] MEDS: ACETAMINOPHEN 1000 MG/100 ML 100 ML IV SCH (23:55)
[2017-06-08] VITALS (13 sets, daily range): BP systolic 85–148; BP diastolic 50–92; PULSE 64–87; RESP 16–20; TEMP 97.9–99.3; O2SAT 96–97
[2017-06-08 03:02] LABS: APTT (PATIENT) 36.9 SEC (24.3-30.1)
[2017-06-08] MEDS: CHLORHEXIDINE GLUCONATE 2 % 1 PACK (2 CLOTHS) TOP SCH (03:30)
[2017-06-08] MEDS: SODIUM CHLOR 0.9% 1000 ML INJ 1,000 ML IV SCH (04:28)
--- NOTE | 2017-06-08 05:09 | MA ---
cc: CASPER KRAUS DO DATE: June 07, 2017 PROCEDURE Left heart catheterization, coronary angiogram, intra-aortic balloon pump placement, moderate sedation 30 minutes. PREPROCEDURE DIAGNOSIS V-fib arrest, ventricular tachycardia, coronary artery disease, N-STEMI. POSTPROCEDURE DIAGNOSIS Multivessel coronary artery disease / left main disease. MEDICATIONS 1. Versed 0.5 mg. 2. Fentanyl 25 mcg. 3. Restarted Heparin drip at previous rate. CONTRAST USED 50 mL. Fluoroscopy: 3.1 minutes Moderate sedation: 30 minutes ESTIMATED BLOOD LOSS 10 cc PROCEDURAL SUMMARY Nathaniel Villa is a pleasant 62-year-old male who presented to [facility] emergency room after having a witnessed syncopal event and was found to be in ventricular fibrillation. He then had another event while on the emergency room of ventricular fibrillation and ventricular tachycardia and because of this he was recommended emergent cardiac catheterization. Risks, benefits and alternatives were explained to him he consented as such. He was brought to lab and prepped in the usual sterile fashion. The right femoral artery was accessed using a modified Seldinger technique and placement of a 6-[place] sheath. This was easily aspirated and flushed. A JR-4 was advanced over a J-wire to the ascending aorta and across the aortic valve for measurement of left ventricular pressure. This was pulled back across the aortic valve showing no significant gradient of aortic stenosis. JR-4 was used for selective angiography of the right coronary artery system. This was exchanged out for a JL-4 which was used for selective angiography of the left coronary artery system. Due to the significance of the coronary artery disease including left main disease it was felt prudent that an intraaortic balloon pump be placed. 6-S[place] sheath was then exchanged for balloon pump sheath. A 50 cc balloon pump was then placed. Augment pressure upon leaving the laborer shaft sinking was 100 to 110 with a systolic of 90 and a diastolic of 60. The patient left the laborer shaft sinking stable but in a guarded situation. FINDINGS Left main: Short with a 90% stenosis in the midportion. It bifurcates into an LAD and circumflex. LAD: Small to moderate size vessel with a 90 percent stenosis in the ostial portion. There is a 30% stenosis in the midportion. It gives off two small diagonals with no significant disease. Left circumflex: Normal size vessel with a 90% stenosis in the proximal portion. A stent is noted in the midportion with 50% In-stent restenosis. Overall the circumflex gives off three major obtuse marginals with no significant disease. Right coronary artery: Small nondominant vessel. LVEDP 17. IMPRESSION 1. V-fib arrest x2. 2. Multivessel coronary artery disease / left main disease. 3. N-STEMI. RECOMMENDATIONS 1. Mr. Jones appears to have significant coronary artery disease, specifically with left main disease. Because of this he will be recommended possible coronary artery bypass grafting. 2. Cardiothoracic surgery has been consulted and will see him in the morning. 3. Intra-aortic balloon pump has been placed as the patient has had arrest x2, with significant left main disease. 4. We will continue him on a heparin drip for his N-STEMI as well as the balloon pump. 5. He will be watched in the ICU. 6. Will check a 2-D echo to look at his overall left ventricular function, cardiac structure and possible vulvopathies. 7. Further recommendations will be made after evaluation by CT surgery. Thank you for allowing me to see Nathaniel Villa. If there are any questions please do not hesitate to call. Casper Kraus DO JD/ANATOLIY /10:57 PM /4:26 AM
[2017-06-08] MEDS: ACETAMINOPHEN 1000 MG/100 ML 100 ML IV SCH ×3 (05:47→16:45)
[2017-06-08] MEDS: FAMOTIDINE 20 MG/2 ML VIAL IV PUSH SCH ×2 (05:48→18:09)
--- NOTE | 2017-06-08 06:10 | RADRPT ---
EXAM DATE/TIME: 06/08/2017 05:02 [place] COMPARISON: CHEST SINGLE AP, June 07, 2017, 15:29. INDICATIONS : Shortness of breath, cardiac arrest, balloon pump. MEDICAL HISTORY : Hypertension. SURGICAL HISTORY : Cardiac catherizations ENCOUNTER: Subsequent ACUITY: 2 days PAIN SCORE: 7/10 LOCATION: Bilateral chest FINDINGS: A single view of the chest demonstrates the lungs to be symmetrically aerated without evidence of mas s, infiltrate or effusion. The cardiomediastinal contours are unremarkable. Osseous structures are intact. There are multiple overlying electrocardiogram leads. Atherosclerotic calcifications are pres ent in the aorta. A balloon pump device is not visualized. CONCLUSION: No acute disease. No balloon pump device visualized. Carter Laughlin MD on June 08, 2017 at 6:07 Board Certified Radiologist. This report was verified electronically.
[2017-06-08] MEDS: AMIODARONE INJ 450 MG in DEXTROSE 5% IN WATE(EXCEL) INJ 241 ML IV PRN ×2 (07:16)
[2017-06-08] MEDS: INSULIN ASPART SUPPLEMENTAL SCALE SQ SCH ×4 (07:38→21:00)
[2017-06-08 08:32] LABS: AUTOMATED NEUTROPHIL # 7.9 TH/MM3 (1.8-7.7); BASOPHIL % 0.3 % (0.0-2.0); EOSINOPHIL % 0.4 % (0.0-4.0); HEMATOCRIT 38.7 % (39.0-51.0); HEMO FLAGS DIFF FINAL; LYMPH % 10.5 % (9.0-44.0); MEAN CELL VOLUME 95.1 FL (80.0-100.0); MEAN CORPUSCULAR HEMOGLOBIN 32.8 PG (27.0-34.0); MEAN CORPUSCULAR HGB CONC 34.5 % (32.0-36.0); MONO % 9.6 % (0.0-8.0); NEUT % 79.2 % (16.0-70.0); PLATELET COUNT 134 TH/MM3 (150-450); RED BLOOD COUNT 4.07 MIL/MM3 (4.50-5.90); RED CELL DISTRIBUTION WIDTH 13.4 % (11.6-17.2); WHITE BLOOD COUNT 9.9 TH/MM3 (4.0-11.0)
--- NOTE | 2017-06-08 08:41 | HHI.CCPN ---
Subjective Remarks/Hospital Course 06/07: This is a 62-year-old male was brought in by EMS after cardiac arrest. The patient is from [place] and was at the [facility] walking around when he had a syncopal episode. A bystander began chest compressions and an AED was located, the rhythm revealed Vfib and the patient was defibrillated 2. Upon EMS arrival the patient was intubated, the patient woke up and self extubated. The patient was transported to the ED for evaluation. Patient states that he has aching chest pain. The patient medical history is significant for CAD status post LA in 2007. Patient status post stent placement on dual antiplatelet therapy , aspirin 81 mg daily along with Plavix. Patient has history hypertension. Cardiology was consulted, Dr. Perdomo, the patient was placed on a heparin infusion and the ED, critical care medicine was consulted for management. 06/08: Patient underwent cardiac catheterization by Dr. Perdomo last night which revealed 90% left main stenosis, 90% proximal LAD and 90% proximal circumflex stenosis. Patient on heparin and amiodarone drips. Cardiothoracic surgery consulted for evaluation for CABG. Patient is Resting in bed at the time of my evaluation. Denies any chest pain currently. IABP in place with 1: 1 augmentation Objective Vital Signs Date Time Temp Pulse Resp B/P (MAP) Pulse Ox O2 Delivery O2 Flow Rate FiO2 06/08/17 08:00 89/57 (85) 06/08/17 07:32 97.9 71 18 96 06/07/17 20:17 Nasal Cannula 2.00 Intake and Output 06/08/17 06/08/17 06/09/17 08:00 16:00 00:00 Intake Total 1718 ml Output Total 500 ml Balance 1218 ml Result Diagram: 06/07/17 1350 06/07/17 1350 Other Results Laboratory Tests Test 06/07/17 13:50 06/07/17 21:38 06/08/17 02:37 06/08/17 03:55 White Blood Count 9.8 TH/MM3 Red Blood Count 4.82 MIL/MM3 Hemoglobin 15.8 GM/DL Hematocrit 45.7 % Mean Corpuscular Volume 94.8 FL Mean Corpuscular Hemoglobin 32.9 PG Mean Corpuscular Hemoglobin Concent 34.7 % Red Cell Distribution Width 13.2 % Platelet Count 194 TH/MM3 Mean Platelet Volume 8.1 FL Neutrophils (%) (Auto) 57.8 % Lymphocytes (%) (Auto) 28.1 % Monocytes (%) (Auto) 9.9 % Eosinophils (%) (Auto) 3.9 % Basophils (%) (Auto) 0.3 % Neutrophils # (Auto) 5.6 TH/MM3 Lymphocytes # (Auto) 2.7 TH/MM3 Monocytes # (Auto) 1.0 TH/MM3 Eosinophils # (Auto) 0.4 TH/MM3 Basophils # (Auto) 0.0 TH/MM3 CBC Comment DIFF FINAL Differential Comment Prothrombin Time 11.0 SEC Prothromb Time International Ratio 1.0 RATIO Activated Partial Thromboplast Time 23.7 SEC 36.9 SEC Blood Urea Nitrogen 20 MG/DL Creatinine 1.37 MG/DL Random Glucose 158 MG/DL Total Protein 7.9 GM/DL Albumin 3.9 GM/DL Calcium Level 9.0 MG/DL Phosphorus Level 7.6 MG/DL Magnesium Level 2.3 MG/DL Alkaline Phosphatase 73 U/L Aspartate Amino Transf (AST/SGOT) 143 U/L Alanine Aminotransferase (ALT/SGPT) 161 U/L Total Bilirubin 0.4 MG/DL Sodium Level 137 MEQ/L Potassium Level 4.5 MEQ/L Chloride Level 102 MEQ/L Carbon Dioxide Level 20.2 MEQ/L Anion Gap 15 MEQ/L Estimat Glomerular Filtration Rate 53 ML/MIN Total Creatine Kinase 193 U/L Troponin I 0.10 NG/ML 3.87 NG/ML 10.50 NG/ML Thyroid Stimulating Hormone 3rd Gen 9.200 uIU/ML Nasal Screen MRSA (PCR) MRSA NOT DETECTED Test 06/08/17 07:47 Imaging Last Impressions Chest X-Ray 06/07/17 1338 Signed Impressions: Service Date/Time: Wednesday, June 07, 2017 15:29 - CONCLUSION: The lungs are clear. Willie Vasquez MD Objective Remarks HEENT/Neuro: No pallor or icterus, tongue moist, ELISSA, Awake alert oriented 3 , nonfocal grossly, moving all 4 extremities Neck: No JVD Chest/pulmonary: CTA bilaterally Cardiovascular: S1-S2 regular no gallop or murmur GI/abdomen: Soft, nontender, bowel sounds present Extremities: Warm bilaterally, no edema. IABP in place via right groin, insertion site with no evidence of hematoma. A/P Assessment and Plan Assessment This is a 62-year-old morbidly obese male with a past medical history significant for coronary artery disease status post V. fib arrest, non-ST elevation LA status post cardiac catheterization with multivessel CAD involving left main, LAD, circumflex for which patient is being evaluated for CABG Plan Neurologic: Chest pain secondary to chest compressions Neurochecks per ICU protocol Ofirmev 1 g every 6 hours 24 hours Morphine 2 mg every 3 hours when necessary for breakthrough pain on scale of 7- 10 Respiratory: Maintain O2 sat greater than 92% Place patient on O2 at 2 L nasal cannula Duo nebs every 4 hours when necessary for wheezing Cardiovascular: Angina/ non-ST elevation LA Coronary artery disease Status post V. fib arrest Status post LA 2007 with stent placement Cardiology consulted -Dr. Perdomo. Cardiac catheterization revealed multivessel CAD involving left main, LAD, circumflex for which patient will require CABG, CT surgery consulted On Heparin infusion. Continue aspirin per cardiology. Continue amiodarone gtt. IABP in place. Awaiting CT surgery evaluation by Dr. Radha Nelson Renal: CHUY Place condom catheter -- Strict I/Os, monitor and replete electrolytes, follow BUN/creatinine. FEN/GI: Nausea Morbid obesity Electrolyte disturbances Begin hydration normal saline at 84 cc/hour Zofran every 4 hours when necessary for nausea Maintain nothing by mouth status Famotidine GI prophylaxis Heme/ID: Monitor CBC Endocrine: Glucose monitoring per ICU protocol Obtain hemoglobin A1c -- SSI Prophylaxis: GI Prophylaxis Famotidine twice a day DVT Prophylaxis -- SCDs Heparin infusion Lines: Peripheral IVs providing adequate access Dispo: Awaiting evaluation for CABG by CT surgery. Yash Waterman MD Jun 08, 2017 08:41
[2017-06-08] MEDS: SODIUM CHLORIDE 0.9% FLUSH 10 ML FLUSH IV FLUSH SCH ×3 (09:00→21:00)
[2017-06-08] MEDS: DOCUSATE SODIUM 50 MG/SENNA 8.6 MG TAB PO SCH ×2 (09:00→20:00)
[2017-06-08] MEDS: METOPROLOL TARTRATE 25 MG TAB PO SCH ×2 (09:02→20:00)
[2017-06-08] MEDS: ASPIRIN 81 MG CHEW TAB CHEW SCH (09:02)
[2017-06-08 09:11] LABS: ALKALINE PHOSPHATASE 52 U/L (45-117); ALT (GPT) 127 U/L (12-78); ANION GAP 7 MEQ/L (5-15); AST (GOT) 122 U/L (15-37); BICARBONATE 26.8 MEQ/L (21.0-32.0); BLOOD UREA NITROGEN 23 MG/DL (7-18); CHLORIDE 106 MEQ/L (98-107); GLOMERULAR FILTRATION RATE 86 ML/MIN (>89); HDL CHOLESTEROL 41.9 MG/DL (40.0-60.0); LDL CHOLESTEROL 93 MG/DL (0-99); MAGNESIUM 2.1 MG/DL (1.5-2.5); SODIUM (NA) 140 MEQ/L (136-145); TOTAL BILIRUBIN ADULT 0.4 MG/DL (0.2-1.0)
[2017-06-08] MEDS ORDERED: INSULIN REGULAR (IV INFUSION) 100 UNITS in SODIUM CHLORIDE 0.9% INJ 99 ML IV PRN (09:45)
[2017-06-08] MEDS ORDERED: PAPAVERINE INJ 60 MG, NITROGLYCERIN INJ 100 MCG, DILTIAZEM INJ 100 MG in SODIUM CHLORID... IRRIGATION SCH (09:45)
[2017-06-08] MEDS ORDERED: CHLORHEXIDINE GLUCONATE 4% SOLN 120 ML BTL TOPICAL SCH (09:45)
[2017-06-08] MEDS ORDERED: CEFAZOLIN INJ 500 MG in SODIUM CHLORIDE 0.9% IRR BTL 500 ML IRRIGATION SCH (09:45)
[2017-06-08] MEDS ORDERED: SODIUM CHLORIDE 0.9% FLUSH 10 ML FLUSH IV FLUSH PRN (09:45)
[2017-06-08] MEDS ORDERED: METOPROLOL TARTRATE 25 MG TAB PO SCH (09:45)
[2017-06-08] MEDS ORDERED: ceFAZolin 2 GM PREMIX 50 ML IV SCH (09:45)
[2017-06-08] MEDS ORDERED: DEXTROSE 50% IN WATER 50 ML VIAL(D50) IV PUSH PRN (09:45)
[2017-06-08] MEDS ORDERED: SIMV40TA PO (10:21)
[2017-06-08] MEDS ORDERED: MELO7.5T27 PO (10:21)
[2017-06-08] MEDS ORDERED: OMEP40CA2 PO (10:21)
[2017-06-08] MEDS ORDERED: ATEN25TA PO (10:21)
[2017-06-08] MEDS ORDERED: ZOLO100T PO (10:21)
[2017-06-08] MEDS ORDERED: LISI40TA PO (10:21)
[2017-06-08] MEDS ORDERED: PLAV75TA29 PO (10:21)
[2017-06-08] MEDS ORDERED: ISOS30TA17 PO (11:07)
[2017-06-08] MEDS ORDERED: RANO500 PO (11:07)
[2017-06-08 11:26] LABS: HEMOGLOBIN A1a 1.5 %; HEMOGLOBIN A1b 0.9 %; HEMOGLOBIN F 1.1 %; HEMOGLOBIN LA1C 2.2 %; HEMOGLOBIN P3 3.9 %
[2017-06-08 11:50] LABS: APTT (PATIENT) 44.3 SEC (24.3-30.1)
[2017-06-08 11:59] LABS: P2Y12 REACTION UNITS (PRU) 198 PRU (194-418)
[2017-06-08] MEDS: oxyCODONE/ACETAMINOPHEN 5 MG/325 MG TAB PO PRN ×3 (12:27→23:14)
--- NOTE | 2017-06-08 13:12 | PD.CARD.PN ---
Subjective Subjective Remarks No events overnight No further arrhythmias No chest pain Objective Medications Current Medications Medications (Trade) Dose Ordered Sig/Margaret Route Start Time Stop Time Status Last Admin Heparin Sodium/ Dextrose 250 ml @ 10 mls/hr TITRATE PRN IV 06/07/17 15:15 06/07/17 15:52 Sodium Chloride 1,000 ml @ 84 mls/hr [id number] IV 06/07/17 16:33 (NS Flush) 2 ml UNSCH PRN IV FLUSH 06/07/17 16:45 (NS Flush) 2 ml BID IV FLUSH 06/07/17 21:00 06/08/17 09:00 (Tylenol) 650 mg Q6H PRN PO 06/07/17 16:45 (Zofran Inj) 4 mg Q6H PRN IV PUSH 06/07/17 16:45 (Duoneb Neb) 1 ampule Q4HR NEB PRN INH 06/07/17 16:45 Miscellaneous Information 1 [id number] XX 06/07/17 16:45 (Chlorhexidine 2% Cloth) 3 pack Taper DAILY@04 TOP 06/08/17 04:00 06/04/18 03:59 06/08/17 03:30 (Chlorhexidine 2% Cloth) 3 pack UNSCH PRN TOP 06/07/17 16:45 (Basilia-Colace) 1 tab BID PO 06/07/17 21:00 06/07/17 21:14 (Milk Of Magnesia Liq) 30 ml Q12H PRN PO 06/07/17 16:45 (Senokot) 17.2 mg Q12H PRN PO 06/07/17 16:45 (Dulcolax Supp) 10 mg DAILY PRN RECTAL 06/07/17 16:45 (Lactulose Liq) 30 ml DAILY PRN PO 06/07/17 16:45 (D50w (Vial) Inj) 50 ml UNSCH PRN IV PUSH 06/07/17 16:45 (Glucagon Inj) 1 mg UNSCH PRN OTHER 06/07/17 16:45 (NovoLOG SUPPLEMENTAL SCALE) 1 ACHS SLIDING SCALE SQ 06/07/17 17:00 Acetaminophen 100 ml @ 400 mls/hr Q6H IV 06/07/17 16:45 06/08/17 16:45 06/08/17 12:26 (Morphine Inj) 2 mg Q3H PRN IV PUSH 06/07/17 16:45 (Aspirin Chew) 81 mg DAILY CHEW 06/08/17 09:00 06/08/17 09:02 (Lopressor) 25 mg Q12HR PO 06/07/17 21:00 06/08/17 09:02 (Pepcid Inj) 20 mg Q12H IV PUSH 06/07/17 18:00 06/08/17 05:48 (Percocet 5-325 Mg) 1 tab Q4H PRN PO 06/07/17 19:30 (Percocet 5-325 Mg) 2 tab Q4H PRN PO 06/07/17 19:30 06/08/17 12:27 Amiodarone HCl 450 mg/Dextrose 250 ml @ 33.33 mls/ hr Q7H31M PRN IV 06/07/17 19:27 06/08/17 07:16 (NS Flush) 2 ml BID IV FLUSH 06/08/17 21:00 (NS Flush) 2 ml UNSCH PRN IV FLUSH 06/08/17 09:45 Papaverine HCl 60 mg/Nitroglycerin 100 mcg/Diltiazem HCl 100 mg/Sodium Chloride 100 ml @ 0 mls/hr STAPLE SIDE LASTER IRRIGATION 06/08/17 09:45 06/15/17 09:44 Cefazolin Sodium 500 mg/Sodium Chloride 505 ml @ 0 mls/hr STAPLE SIDE LASTER IRRIGATION 06/08/17 09:45 06/15/17 09:44 Cefazolin Sodium/ Dextrose 50 ml @ 150 mls/hr STAPLE SIDE LASTER IV 06/08/17 09:45 06/15/17 09:44 (Lopressor) 12.5 mg STAPLE SIDE LASTER PO 06/08/17 09:45 06/15/17 09:44 (Bactroban Nasal 2% Oint) 1 applic BID EACH NARE 06/08/17 21:00 06/13/17 20:59 (Hibiclens 4% Top Soln) 1 applic STAPLE SIDE LASTER TOPICAL 06/08/17 09:45 06/15/17 09:44 Insulin Human Regular 100 units/ Sodium Chloride 100 ml @ 3 mls/hr TITRATE PRN IV 06/08/17 09:45 06/15/17 09:44 (D50w (Vial) Inj) 50 ml UNSCH PRN IV PUSH 06/08/17 09:45 Vital Signs / I&O Vital Signs Date Time Temp Pulse Resp B/P (MAP) Pulse Ox O2 Delivery O2 Flow Rate FiO2 06/08/17 12:00 94/57 (86) 06/08/17 11:43 98.5 68 18 140/92 (108) 96 96/61 (73) 06/08/17 11:00 68 06/08/17 11:00 96/61 (89) 06/08/17 10:00 96/60 (92) 06/08/17 09:00 88/53 (83) 06/08/17 08:00 89/57 (85) 06/08/17 07:32 97.9 71 18 138/55 (82) 96 93/57 (69) 06/08/17 07:16 72 138/55 06/08/17 07:00 93/57 (84) 06/08/17 07:00 71 06/08/17 06:30 20 06/08/17 06:03 93/56 (80) 06/08/17 05:00 87/55 (84) 06/08/17 04:00 85/50 (77) 06/08/17 04:00 99.3 74 20 106/55 (72) 96 85/50 (62) 06/08/17 03:55 77 114/56 06/08/17 03:00 87 06/08/17 03:00 100/59 (90) 06/08/17 02:00 92/57 (85) 06/08/17 01:00 84/50 (74) 06/08/17 00:00 93/56 (85) 06/08/17 00:00 99.0 76 20 106/54 (71) 96 93/56 (68) 06/07/17 23:30 77 06/07/17 23:00 101/62 (93) 06/07/17 22:45 20 06/07/17 22:00 94/62 (85) 06/07/17 21:44 80 109/52 06/07/17 21:14 86 109/52 06/07/17 21:00 90/60 (87) 06/07/17 20:30 83 06/07/17 20:17 97 Nasal Cannula 2.00 06/07/17 20:00 98.8 82 20 112/63 (79) 98 90/62 (71) 06/07/17 20:00 91/61 (90) 06/07/17 19:20 99 06/07/17 13:43 92 18 96 Room Air 06/07/17 13:43 96 Room Air 06/07/17 13:43 90 18 124/58 (80) 97 Room Air 06/07/17 13:36 94 18 95 I/O 06/07/17 06/07/17 06/07/17 06/08/17 06/08/17 06/08/17 07:00 15:00 23:00 07:00 15:00 23:00 Intake Total 100 ml 1718 ml Output Total 500 ml Balance 100 ml 1218 ml Intake Oral 720 ml IV Total 100 ml 998 ml Output Urine Total 500 ml # Voids 1 # Bowel Movements 0 Physical Exam GENERAL: NAD, AAOx3 (previously after yesterday's events was only x2) SKIN: Warm and dry. HEAD: Atraumatic. Normocephalic. EYES: Pupils equal and round. No scleral icterus. No injection or drainage. ENT: No nasal bleeding or discharge. Mucous membranes pink and moist. NECK: Trachea midline. No JVD. CARDIOVASCULAR: Regular rate and rhythm. RESPIRATORY: No accessory muscle use. Clear to auscultation. Breath sounds equal bilaterally. GASTROINTESTINAL: Abdomen soft, non-tender, nondistended. Hepatic and splenic margins not palpable. MUSCULOSKELETAL: Extremities without clubbing, cyanosis, or edema. No obvious deformities. Right groin with no hematoma/ecchymosis. IABP appears in place NEUROLOGICAL: Awake and alert. No obvious cranial nerve deficits. Motor grossly within normal limits. Five out of 5 muscle strength in the arms and legs. Normal speech. PSYCHIATRIC: Appropriate mood and affect; insight and judgment normal. Laboratory Laboratory Tests Test 06/07/17 13:50 06/07/17 21:38 06/08/17 02:37 06/08/17 03:55 White Blood Count 9.8 TH/MM3 Red Blood Count 4.82 MIL/MM3 Hemoglobin 15.8 GM/DL Hematocrit 45.7 % Mean Corpuscular Volume 94.8 FL Mean Corpuscular Hemoglobin 32.9 PG Mean Corpuscular Hemoglobin Concent 34.7 % Red Cell Distribution Width 13.2 % Platelet Count 194 TH/MM3 Mean Platelet Volume 8.1 FL Neutrophils (%) (Auto) 57.8 % Lymphocytes (%) (Auto) 28.1 % Monocytes (%) (Auto) 9.9 % Eosinophils (%) (Auto) 3.9 % Basophils (%) (Auto) 0.3 % Neutrophils # (Auto) 5.6 TH/MM3 Lymphocytes # (Auto) 2.7 TH/MM3 Monocytes # (Auto) 1.0 TH/MM3 Eosinophils # (Auto) 0.4 TH/MM3 Basophils # (Auto) 0.0 TH/MM3 CBC Comment DIFF FINAL Differential Comment Prothrombin Time 11.0 SEC Prothromb Time International Ratio 1.0 RATIO Activated Partial Thromboplast Time 23.7 SEC 36.9 SEC Blood Urea Nitrogen 20 MG/DL Creatinine 1.37 MG/DL Random Glucose 158 MG/DL Total Protein 7.9 GM/DL Albumin 3.9 GM/DL Calcium Level 9.0 MG/DL Phosphorus Level 7.6 MG/DL Magnesium Level 2.3 MG/DL Alkaline Phosphatase 73 U/L Aspartate Amino Transf (AST/SGOT) 143 U/L Alanine Aminotransferase (ALT/SGPT) 161 U/L Total Bilirubin 0.4 MG/DL Sodium Level 137 MEQ/L Potassium Level 4.5 MEQ/L Chloride Level 102 MEQ/L Carbon Dioxide Level 20.2 MEQ/L Anion Gap 15 MEQ/L Estimat Glomerular Filtration Rate 53 ML/MIN Hemoglobin A1c 5.9 % Total Creatine Kinase 193 U/L Troponin I 0.10 NG/ML 3.87 NG/ML 10.50 NG/ML Thyroid Stimulating Hormone 3rd Gen 9.200 uIU/ML Nasal Screen MRSA (PCR) MRSA NOT DETECTED Test 06/08/17 07:47 06/08/17 11:14 White Blood Count 9.9 TH/MM3 Red Blood Count 4.07 MIL/MM3 Hemoglobin 13.3 GM/DL Hematocrit 38.7 % Mean Corpuscular Volume 95.1 FL Mean Corpuscular Hemoglobin 32.8 PG Mean Corpuscular Hemoglobin Concent 34.5 % Red Cell Distribution Width 13.4 % Platelet Count 134 TH/MM3 Mean Platelet Volume 8.7 FL Neutrophils (%) (Auto) 79.2 % Lymphocytes (%) (Auto) 10.5 % Monocytes (%) (Auto) 9.6 % Eosinophils (%) (Auto) 0.4 % Basophils (%) (Auto) 0.3 % Neutrophils # (Auto) 7.9 TH/MM3 Lymphocytes # (Auto) 1.0 TH/MM3 Monocytes # (Auto) 0.9 TH/MM3 Eosinophils # (Auto) 0.0 TH/MM3 Basophils # (Auto) 0.0 TH/MM3 CBC Comment DIFF FINAL Differential Comment Blood Urea Nitrogen 23 MG/DL Creatinine 0.90 MG/DL Random Glucose 100 MG/DL Total Protein 6.3 GM/DL Albumin 3.4 GM/DL Calcium Level 7.9 MG/DL Phosphorus Level 4.0 MG/DL Magnesium Level 2.1 MG/DL Alkaline Phosphatase 52 U/L Aspartate Amino Transf (AST/SGOT) 122 U/L Alanine Aminotransferase (ALT/SGPT) 127 U/L Total Bilirubin 0.4 MG/DL Sodium Level 140 MEQ/L Potassium Level 4.0 MEQ/L Chloride Level 106 MEQ/L Carbon Dioxide Level 26.8 MEQ/L Anion Gap 7 MEQ/L Estimat Glomerular Filtration Rate 86 ML/MIN Troponin I 10.30 NG/ML Triglycerides Level 233 MG/DL Cholesterol Level 181 MG/DL LDL Cholesterol 93 MG/DL HDL Cholesterol 41.9 MG/DL Cholesterol/HDL Ratio 4.31 RATIO Activated Partial Thromboplast Time 44.3 SEC Platelet Function P2Y12 React Units 198 PRU Imaging Last 24 hours Impressions Chest X-Ray 06/08/17 0600 Signed Impressions: Service Date/Time: Thursday, June 08, 2017 05:02 - CONCLUSION: No acute disease. No balloon pump device visualized. Carter Laughlin MD Chest X-Ray 06/07/17 1338 Signed Impressions: Service Date/Time: Wednesday, June 07, 2017 15:29 - CONCLUSION: The lungs are clear. Willie Vasquez MD Assessment and Plan Problem List: (1) Ventricular fibrillation ICD Codes: I49.01 - Ventricular fibrillation Status: Acute (2) Cardiac arrest ICD Codes: I46.9 - Cardiac arrest, cause unspecified Status: Acute (3) CAD (coronary artery disease) ICD Codes: I25.10 - Atherosclerotic heart disease of [place] coronary artery without angina pectoris (4) Left main coronary artery disease ICD Codes: I25.10 - Atherosclerotic heart disease of [place] coronary artery without angina pectoris (5) Multi-vessel coronary artery stenosis ICD Codes: I25.10 - Atherosclerotic heart disease of [place] coronary artery without angina pectoris Assessment and Plan 1) V. Fib arrest Secondary to ischemia Started on Amiodarone drip 2) NSTEMI/CAD Significant CAD with LM/LAD/LCx disease Plan for CABG once able to with recent Plavix dose (last taken 06/07/17) Discussed with Dr. Nelsno IABP placed Con't heparin drip Assess distal pulses frequently CXR unsure if IABP seen, will repeat while on standby 3) Echo pending Casper Perdomo DO Jun 08, 2017 13:12
[2017-06-08] MEDS: HEPARIN-D5W 25,000 U/250 ML 250 ML IV PRN (14:13)
--- NOTE | 2017-06-08 14:32 | RADRPT ---
EXAM DATE/TIME: 06/08/2017 12:49 [facility] COMPARISON: No previous studies available for comparison. INDICATIONS : PreOp cardiac surgery. MEDICAL HISTORY : Myocardial infarction. Hypercholesterolemia. Hypertension. Headache. Anticoagulant therapy. 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 Dyspnea. Arthritis. SURGICAL HISTORY : Coronary artery stent. Cardiac catheterization. Back surgery. Right big toe surgery. ENCOUNTER: Initial ACUITY: 1 day PAIN SCORE: 0/10 LOCATION: Bilateral legs. TECHNIQUE: Venous ultrasound of the left and right leg was performed from the inguinal ligament to the proximal calf. Real-time, color Doppler and spectral tracing, compression and augmentation techniques were us ed. FINDINGS: RIGHT LEG: There is normal compressibility of the deep venous system from the inguinal region to the proximal ca lf. No echogenic clot is seen in the lumen of the common femoral, femoral, popliteal, and posterior tibial veins. There is a normal response of the venous system to proximal and distal augmentation an d respiration. Popliteal cyst measures 5.1 x 2.4 x 0.8 cm. LEFT LEG: There is normal compressibility of the deep venous system from the inguinal region to the proximal ca lf. No echogenic clot is seen in the lumen of the common femoral, femoral, popliteal, and posterior tibial veins. There is a normal response of the venous system to proximal and distal augmentation an d respiration. CONCLUSION: 1. The study is negative for deep venous thrombosis bilateral lower extremity. 2. 5 cm right popliteal cyst. Willie Vasquez MD on June 08, 2017 at 14:29 Board Certified Radiologist. This report was verified electronically.
--- NOTE | 2017-06-08 14:33 | RADRPT ---
EXAM DATE/TIME: 06/08/2017 12:49 [facility] COMPARISON: No previous studies available for comparison. INDICATIONS : PreOp cardiac surgery. MEDICAL HISTORY : Myocardial infarction. Hypercholesterolemia. Hypertension. Headache. Anticoagulant therapy. 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 Dyspnea. Arthritis. SURGICAL HISTORY : Coronary artery stent. Cardiac catheterization. Back surgery. Right big toe surgery. ENCOUNTER: Initial ACUITY: 1 day PAIN SCORE: 0/10 LOCATION: Bilateral legs. GREATER SAPHENOUS VEIN THIGH: PROXIMAL: Right 5 mm Left 10 mm MID: Right 2 mm Left 3 mm DISTAL: Right 3 mm Left 2 mm CALF: PROXIMAL: Right 2 mm Left 2 mm MID: Right 2 mm Left 1 mm DISTAL: Right 1 mm Left Non-visualized FINDINGS: The venous system of the lower extremities are patent by color Doppler imaging. Measurements of the leg veins (in mm) are listed above. CONCLUSION: Venous mapping of the superficial veins of the thigh and calf as measured above. Willie Vasquez MD on June 08, 2017 at 14:31 Board Certified Radiologist. This report was verified electronically.
--- NOTE | 2017-06-08 14:37 | RADRPT ---
EXAM DATE/TIME: 06/08/2017 13:23 [facility] COMPARISON: CHEST SINGLE AP, June 07, 2017, 15:29. CHEST SINGLE AP, June 08, 2017, 5:02. INDICATIONS : Verification of interaortic balloon pump placement. MEDICAL HISTORY : Hypertension. SURGICAL HISTORY : Cardiac catheterization. ENCOUNTER: Initial ACUITY: 1 day PAIN SCORE: 7/10 LOCATION: Bilateral chest FINDINGS: A single view of the chest demonstrates the lungs to be symmetrically aerated without evidence of mas s, infiltrate or effusion. The cardiomediastinal contours are unremarkable. Osseous structures are intact. CONCLUSION: No infiltrates seen. There is a 5 mm metallic opacity superimposed upon the arch of the aorta which is of uncertain significance. Willie Vasquez MD on June 08, 2017 at 14:33 Board Certified Radiologist. This report was verified electronically.
--- NOTE | 2017-06-08 15:24 | RADRPT ---
EXAM DATE/TIME: 06/08/2017 12:27 [facility] COMPARISON: No previous studies available for comparison. INDICATIONS : PreOp cardiac surgery. MEDICAL HISTORY : Myocardial infarction. Hypercholesterolemia. Hypertension. Headache. Anticoagulant therapy. 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 Dyspnea. Arthritis. SURGICAL HISTORY : Coronary artery stent. Cardiac catheterization. Back surgery. Right big toe surgery. ENCOUNTER: Initial ACUITY: 1 day PAIN SCORE: 0/10 LOCATION: Bilateral neck PEAK SYSTOLIC VELOCITIES (cm/sec): ICA/CCA RATIO: Right: 1.6 Left: 1.2 ICA: Right: 138.3 Left: 131.5 CCA: Right: 85.4 Left: 107.5 ECA: Right: 140.8 Left: 140.5 VERTEBRAL: Right: 118.1 antegrade Elevated flow velocities and ICA/CCA ratios have been found to correlate with increased degrees of vessel stenosis, calculated as percentage of diameter relative to a normal segment of distal ICA/CCA FINDINGS: RIGHT CAROTID: No significant stenosis is visualized. The waveforms are within normal limits. LEFT CAROTID: No significant stenosis is visualized. The waveforms are within normal limits. VERTEBRAL ARTERIES: Antegrade flow is seen in both vertebral arteries. MISCELLANEOUS: None. CONCLUSION: 1. There is mild visible plaque in the carotid arteries bilaterally especially around the bifurcation s. No hemodynamically significant stenosis is identified. Hugo Martínez MD on June 08, 2017 at 15:19 Board Certified Radiologist. This report was verified electronically.
[2017-06-08 19:15] LABS: APTT (PATIENT) 44.8 SEC (24.3-30.1)
[2017-06-08] MEDS: MUPIROCIN 2% OINT 1 APPLIC/GM SYR EACH NARE SCH (23:13)
[2017-06-09] VITALS (7 sets, daily range): BP systolic 105–148; BP diastolic 51–98; PULSE 64–111; RESP 14–18; TEMP 98.1–99.6; O2SAT 95–99
[2017-06-09] MEDS: CHLORHEXIDINE GLUCONATE 2 % 1 PACK (2 CLOTHS) TOP SCH (04:00)
--- NOTE | 2017-06-09 04:08 | RADRPT ---
EXAM DATE/TIME: 06/09/2017 03:29 [facility] COMPARISON: CHEST SINGLE AP, June 08, 2017, 13:23. INDICATIONS : Chest pain, patient on balloon pump. MEDICAL HISTORY : Hypertension. SURGICAL HISTORY : Cardiac catherization. ENCOUNTER: Subsequent ACUITY: 3 days PAIN SCORE: 8/10 LOCATION: Bilateral chest FINDINGS: A single view of the chest demonstrates the lungs to be symmetrically aerated without evidence of mas s, infiltrate or effusion. The cardiomediastinal contours are unremarkable. Osseous structures are intact. CONCLUSION: No acute disease. Rk Barrera MD on June 09, 2017 at 4:06 Board Certified Radiologist. This report was verified electronically.
[2017-06-09] MEDS: FAMOTIDINE 20 MG/2 ML VIAL IV PUSH SCH ×2 (05:04→17:35)
[2017-06-09 05:57] LABS: AUTOMATED NEUTROPHIL # 6.7 TH/MM3 (1.8-7.7); BASOPHIL % 0.4 % (0.0-2.0); EOSINOPHIL # 0.2 TH/MM3 (0-0.4); EOSINOPHIL % 2.2 % (0.0-4.0); HEMATOCRIT 39.1 % (39.0-51.0); HEMO FLAGS DIFF FINAL; LYMPH % 16.3 % (9.0-44.0); LYMPHOCYTE # 1.5 TH/MM3 (1.0-4.8); MEAN CELL VOLUME 95.2 FL (80.0-100.0); MEAN CORPUSCULAR HEMOGLOBIN 32.7 PG (27.0-34.0); MEAN CORPUSCULAR HGB CONC 34.3 % (32.0-36.0); MONO % 8.8 % (0.0-8.0); NEUT % 72.3 % (16.0-70.0); PLATELET COUNT 127 TH/MM3 (150-450); RED BLOOD COUNT 4.11 MIL/MM3 (4.50-5.90); RED CELL DISTRIBUTION WIDTH 13.6 % (11.6-17.2); WHITE BLOOD COUNT 9.3 TH/MM3 (4.0-11.0)
[2017-06-09 06:14] LABS: ANION GAP 4 MEQ/L (5-15); AST (GOT) 83 U/L (15-37); BICARBONATE 29.3 MEQ/L (21.0-32.0); BLOOD UREA NITROGEN 19 MG/DL (7-18); CHLORIDE 104 MEQ/L (98-107); GLOMERULAR FILTRATION RATE 102 ML/MIN (>89); SODIUM (NA) 137 MEQ/L (136-145)
[2017-06-09 06:15] LABS: ALT (GPT) 119 U/L (12-78)
[2017-06-09 06:17] LABS: ALKALINE PHOSPHATASE 48 U/L (45-117); TOTAL BILIRUBIN ADULT 0.5 MG/DL (0.2-1.0)
--- NOTE | 2017-06-09 07:30 | HHI.CCPN ---
Subjective Remarks/Hospital Course 06/07: This is a 62-year-old male was brought in by EMS after cardiac arrest. The patient is from [place] and was at the [facility] walking around when he had a syncopal episode. A bystander began chest compressions and an AED was located, the rhythm revealed Vfib and the patient was defibrillated 2. Upon EMS arrival the patient was intubated, the patient woke up and self extubated. The patient was transported to the ED for evaluation. Patient states that he has aching chest pain. The patient medical history is significant for CAD status post PR in 2007. Patient status post stent placement on dual antiplatelet therapy , aspirin 81 mg daily along with Plavix. Patient has history hypertension. Cardiology was consulted, Dr. Perdomo, the patient was placed on a heparin infusion and the ED, critical care medicine was consulted for management. 06/08: Patient underwent cardiac catheterization by Dr. Perdomo last night which revealed 90% left main stenosis, 90% proximal LAD and 90% proximal circumflex stenosis. Patient on heparin and amiodarone drips. Cardiothoracic surgery consulted for evaluation for CABG. Patient is Resting in bed at the time of my evaluation. Denies any chest pain currently. IABP in place with 1: 1 augmentation 06/09: In bed comfortably. Occasional ectopy last night. IABP remains in place. Patient has been evaluated by CT surgery and is awaiting CABG. Objective Vital Signs Date Time Temp Pulse Resp B/P (MAP) Pulse Ox O2 Delivery O2 Flow Rate FiO2 06/09/17 06:00 106/68 (88) 06/09/17 03:00 66 06/09/17 03:00 98.1 14 97 06/08/17 20:50 Nasal Cannula 2.00 Intake and Output 06/09/17 06/09/17 06/09/17 07:59 15:59 23:59 Intake Total 240 ml Output Total 790 ml Balance -550 ml Result Diagram: 06/09/1751706/09/17 05 Imaging Last Impressions Chest X-Ray 06/07/17 7888 Signed Impressions: Service Date/Time: Friday, June 07, 2017 15:29 - CONCLUSION: The lungs are clear. Willie Vasquez MD Objective Remarks HEENT/Neuro: No pallor or icterus, tongue moist, ELISSA, sleeping, awakens easily , nonfocal grossly, moving all 4 extremities Neck: No JVD Chest/pulmonary: CTA bilaterally Cardiovascular: S1-S2 regular no gallop or murmur GI/abdomen: Soft, nontender, bowel sounds present Extremities: Warm bilaterally, no edema. IABP in place via right groin, insertion site with no evidence of hematoma. A/P Assessment and Plan Assessment This is a 62-year-old morbidly obese male with a past medical history significant for coronary artery disease status post V. fib arrest, non-ST elevation PR status post cardiac catheterization with multivessel CAD involving left main, LAD, circumflex for which patient is being evaluated for CABG Plan Neurologic: Chest pain secondary to chest compressions Neurochecks per ICU protocol Ofirmev 1 g every 6 hours 24 hours Morphine 2 mg every 3 hours when necessary for breakthrough pain on scale of 7- 10 Respiratory: Maintain O2 sat greater than 92% O2 2 L nasal cannula Duo nebs every 4 hours when necessary for wheezing Cardiovascular: Angina/ non-ST elevation PR Coronary artery disease Status post V. fib arrest Status post PR 2007 with stent placement Cardiology consulted -Dr. Perdomo. Cardiac catheterization revealed multivessel CAD involving left main, LAD, circumflex for which patient will require CABG, CT surgery consulted On Heparin infusion. Continue aspirin per cardiology. Continue amiodarone gtt. IABP in place. Awaiting CT surgery evaluation by Dr. Radha Nelson Renal: CHUY Place condom catheter -- Strict I/Os, monitor and replete electrolytes, follow BUN/creatinine. FEN/GI: Nausea Morbid obesity Electrolyte disturbances IV hydration with normal saline at 84 cc/hour Zofran every 4 hours when necessary for nausea PO diet as tolerated Famotidine GI prophylaxis Heme/ID: Monitor CBC Endocrine: Glucose monitoring per ICU protocol Obtain hemoglobin A1c -- SSI Prophylaxis: GI Prophylaxis Famotidine twice a day DVT Prophylaxis -- SCDs Heparin infusion Lines: Peripheral IVs providing adequate access Dispo: Awaiting CABG, CT surgery following. Yash Waterman MD Jun 09, 2017 07:30
[2017-06-09] MEDS: INSULIN ASPART SUPPLEMENTAL SCALE SQ SCH ×4 (08:00→20:20)
[2017-06-09] MEDS: MUPIROCIN 2% OINT 1 APPLIC/GM SYR EACH NARE SCH ×2 (09:57→20:15)
[2017-06-09] MEDS: METOPROLOL TARTRATE 25 MG TAB PO SCH ×2 (09:57→20:15)
[2017-06-09] MEDS: SODIUM CHLORIDE 0.9% FLUSH 10 ML FLUSH IV FLUSH SCH ×4 (09:58→20:20)
[2017-06-09] MEDS: DOCUSATE SODIUM 50 MG/SENNA 8.6 MG TAB PO SCH ×2 (09:58→20:15)
[2017-06-09] MEDS: ASPIRIN 81 MG CHEW TAB CHEW SCH (09:58)
[2017-06-09 11:18] LABS: APTT (PATIENT) 37.6 SEC (24.3-30.1)
[2017-06-09 14:15] LABS: BLOOD, URINE NEG (NEG); GLUCOSE,URINE NEG (NEG); HYALINE CAST, URINE 1 /lpf (RARE); KETONE, URINE NEG (NEG); NITRITE,URINE NEG (NEG); PH, URINE 6.5 (5.0-8.5); URINE COLOR LIGHT-YELLOW (YELLW/STRAW)
[2017-06-09 14:16] LABS: COMMENT (UR) CULT NOT INDICATED; CULTURE IF INDICATED CULT NOT INDICATED
--- NOTE | 2017-06-09 15:10 | ECHRPT ---
Indication: v fib arrest CONCLUSIONS There was limited left ventricular wall motion assessment due to poor endocardial visualization. The left ventricular systolic function is moderately reduced with an estimated ejection fraction in the range of 40%. Normal left ventricular size.Mitral annular calcification is present. [id number] mitral valve regurgitation. There is trace tricuspid valve regurgitation. The estimated pulmonary arterial pressure is 42.5 mmHg. BP: / HR: Rhythm: MEASUREMENTS (Male / Female) Normal Values Technical Quality:Technically difficult study 2D ECHO LV Diastolic Diameter PLAX 5.3 cm 4.2 - 5.9 / 3.9 - 5.3 cm LV Systolic Diameter PLAX 4.5 cm IVS Diastolic Thickness 0.7 cm 0.6 - 1.0 / 0.6 - 0.9 cm LVPW Diastolic Thickness 0.8 cm 0.6 - 1.0 / 0.6 - 0.9 cm LV Relative Wall Thickness 0.3 RV Internal Dim ED PLAX 2.6 cm M-MODE Aortic Root Diameter MM 3.5 cm LA Systolic Diameter MM 3.7 cm LA Ao Ratio MM 1.1 AV Cusp Separation MM 1.8 cm DOPPLER Mitral E Point Velocity 103.0 cm/s Mitral A Point Velocity 91.8 cm/s Mitral E to A Ratio 1.1 LV E' Lateral Velocity 11.3 cm/s Mitral E to LV E' Lateral Ratio 9.1 LV E' Septal Velocity 10.3 cm/s Mitral E to LV E' Septal Ratio 10.0 TR Peak Velocity 285.0 cm/s TR Peak Gradient 32.5 mmHg Right Atrial Pressure 10.0 mmHg Pulmonary Artery Systolic Pressu 42.5 mmHg Right Ventricular Systolic Press 42.5 mmHg FINDINGS LEFT VENTRICLE There was limited left ventricular wall motion assessment due to poor endocardial visualization. The left ventricular systolic function is moderately reduced with an estimated ejection fraction in the range of 40%. Normal left ventricular size. RIGHT VENTRICLE Normal right ventricular size and systolic function. LEFT ATRIUM The left atrial size is normal. RIGHT ATRIUM The right atrial size is normal. ATRIAL SEPTUM Normal atrial septal thickness without atrial level shunting by limited color doppler interrogation. AORTA The aortic root and proximal ascending aorta are normal in size on limited imaging. MITRAL VALVE Mitral annular calcification is present. [id number] mitral valve regurgitation. Structurally normal mitral valve. AORTIC VALVE Trileaflet aortic valve. No aortic valve stenosis or regurgitation. TRICUSPID VALVE There is trace tricuspid valve regurgitation. The estimated pulmonary arterial pressure is 42.5 mmHg. Structurally normal tricuspid valve. PULMONARY VALVE No pulmonary valve regurgitation or stenosis. VESSELS The inferior vena cava is normal in size. PERICARDIUM No pericardial effusion. Gallo Mendez MD (Electronically Signed) Final Date:09 June 2017 15:10
[2017-06-09] MEDS: AMIODARONE INJ 450 MG in DEXTROSE 5% IN WATE(EXCEL) INJ 241 ML IV PRN ×2 (15:17)
[2017-06-09] MEDS: HEPARIN-D5W 25,000 U/250 ML 250 ML IV PRN (15:20)
[2017-06-09] MEDS ORDERED: IOHEXOL 350 MG/ML 50 ML BTL (for Cath Lab) OTHER ONE (15:40)
--- NOTE | 2017-06-09 15:47 | PD.CARD.PN ---
Subjective Subjective Remarks No events overnight No further arrhythmias No chest pain Objective Medications Current Medications Medications (Trade) Dose Ordered Sig/Margaret Route Start Time Stop Time Status Last Admin Heparin Sodium/ Dextrose 250 ml @ 10 mls/hr TITRATE PRN IV 06/07/17 15:15 06/09/17 15:20 (NS Flush) 2 ml UNSCH PRN IV FLUSH 06/07/17 16:45 (NS Flush) 2 ml BID IV FLUSH 06/07/17 21:00 06/09/17 09:58 (Tylenol) 650 mg Q6H PRN PO 06/07/17 16:45 (Zofran Inj) 4 mg Q6H PRN IV PUSH 06/07/17 16:45 (Duoneb Neb) 1 ampule Q4HR NEB PRN INH 06/07/17 16:45 Miscellaneous Information 1 Q361D XX 06/07/17 16:45 (Chlorhexidine 2% Cloth) 3 pack Taper DAILY@04 TOP 06/08/17 04:00 06/04/18 03:59 06/09/17 04:00 (Chlorhexidine 2% Cloth) 3 pack UNSCH PRN TOP 06/07/17 16:45 (Basilia-Colace) 1 tab BID PO 06/07/17 21:00 06/09/17 09:58 (Milk Of Magnesia Liq) 30 ml Q12H PRN PO 06/07/17 16:45 (Senokot) 17.2 mg Q12H PRN PO 06/07/17 16:45 (Dulcolax Supp) 10 mg DAILY PRN RECTAL 06/07/17 16:45 (Lactulose Liq) 30 ml DAILY PRN PO 06/07/17 16:45 (D50w (Vial) Inj) 50 ml UNSCH PRN IV PUSH 06/07/17 16:45 (Glucagon Inj) 1 mg UNSCH PRN OTHER 06/07/17 16:45 (NovoLOG SUPPLEMENTAL SCALE) 1 ACHS SLIDING SCALE SQ 06/07/17 17:00 06/09/17 12:56 (Morphine Inj) 2 mg Q3H PRN IV PUSH 06/07/17 16:45 (Aspirin Chew) 81 mg DAILY CHEW 06/08/17 09:00 06/09/17 09:58 (Lopressor) 25 mg Q12HR PO 06/07/17 21:00 06/09/17 09:57 (Pepcid Inj) 20 mg Q12H IV PUSH 06/07/17 18:00 06/09/17 05:04 (Percocet 5-325 Mg) 1 tab Q4H PRN PO 06/07/17 19:30 06/08/17 20:01 (Percocet 5-325 Mg) 2 tab Q4H PRN PO 06/07/17 19:30 06/08/17 23:14 Amiodarone HCl 450 mg/Dextrose 250 ml @ 33.33 mls/ hr Q7H31M PRN IV 06/07/17 19:27 06/09/17 15:17 (NS Flush) 2 ml BID IV FLUSH 06/08/17 21:00 06/09/17 09:58 (NS Flush) 2 ml UNSCH PRN IV FLUSH 06/08/17 09:45 Papaverine HCl 60 mg/Nitroglycerin 100 mcg/Diltiazem HCl 100 mg/Sodium Chloride 100 ml @ 0 mls/hr DEVELOPMENT TECHNOLOGIST IRRIGATION 06/08/17 09:45 06/15/17 09:44 Cefazolin Sodium 500 mg/Sodium Chloride 505 ml @ 0 mls/hr DEVELOPMENT TECHNOLOGIST IRRIGATION 06/08/17 09:45 06/15/17 09:44 Cefazolin Sodium/ Dextrose 50 ml @ 150 mls/hr DEVELOPMENT TECHNOLOGIST IV 06/08/17 09:45 06/15/17 09:44 (Lopressor) 12.5 mg DEVELOPMENT TECHNOLOGIST PO 06/08/17 09:45 06/15/17 09:44 (Bactroban Nasal 2% Oint) 1 applic BID EACH NARE 06/08/17 21:00 06/13/17 20:59 06/09/17 09:57 (Hibiclens 4% Top Soln) 1 applic DEVELOPMENT TECHNOLOGIST TOPICAL 06/08/17 09:45 06/15/17 09:44 Insulin Human Regular 100 units/ Sodium Chloride 100 ml @ 3 mls/hr TITRATE PRN IV 06/08/17 09:45 06/15/17 09:44 (D50w (Vial) Inj) 50 ml UNSCH PRN IV PUSH 06/08/17 09:45 Vital Signs / I&O Vital Signs Date Time Temp Pulse Resp B/P (MAP) Pulse Ox O2 Delivery O2 Flow Rate FiO2 06/09/17 15:17 75 148/77 06/09/17 14:00 06/09/17 13:00 06/09/17 12:00 06/09/17 11:00 109/63 (98) 06/09/17 11:00 99.5 111 18 142/98 (113) 97 Arterial Line 06/09/17 11:00 79 06/09/17 10:00 06/09/17 09:00 06/09/17 08:00 06/09/17 07:00 99.6 71 18 105/51 (69) 95 06/09/17 07:00 71 06/09/17 07:00 109/66 (103) 06/09/17 06:00 106/68 (88) 06/09/17 05:00 103/64 (87) 06/09/17 04:00 107/67 06/09/17 03:00 95/54 (88) 06/09/17 03:00 66 06/09/17 03:00 98.1 65 14 134/69 (90) 97 06/09/17 02:00 112/72 06/09/17 01:00 105/74 06/09/17 00:19 16 06/09/17 00:00 107/67 06/08/17 23:00 98.2 64 16 148/89 (108) 97 06/08/17 23:00 67 06/08/17 23:00 95/54 (88) 06/08/17 22:00 107/68 (66) 06/08/17 21:00 107/68 06/08/17 20:50 97 Nasal Cannula 2.00 06/08/17 20:00 105/60 (71) 06/08/17 19:00 95/54 (88) 06/08/17 19:00 98.2 64 16 148/89 (108) 97 Arterial Line 06/08/17 19:00 67 06/08/17 17:18 64 117/64 06/08/17 17:00 102/62 (92) 06/08/17 16:00 93/57 (92) 06/08/17 15:58 97 Nasal Cannula 2.00 I/O 06/08/17 06/08/17 06/08/17 06/09/17 06/09/1706/09/17 07:00 15:00 23:00 07:00 15:00 23:00 Intake Total 1718 ml 100 ml 2694 ml 240 ml Output Total 500 ml 560 ml 790 ml Balance 1218 ml 100 ml 2134 ml -550 ml Intake Oral 720 ml 1060 ml 240 ml IV Total 998 ml 100 ml 1634 ml Output Urine Total 500 ml 560 ml 790 ml # Voids 1 2 # Bowel Movements 0 1 Physical Exam GENERAL: NAD, AAOx3 (previously after yesterday's events was only x2) SKIN: Warm and dry. HEAD: Atraumatic. Normocephalic. EYES: Pupils equal and round. No scleral icterus. No injection or drainage. ENT: No nasal bleeding or discharge. Mucous membranes pink and moist. NECK: Trachea midline. No JVD. CARDIOVASCULAR: Regular rate and rhythm. RESPIRATORY: No accessory muscle use. Clear to auscultation. Breath sounds equal bilaterally. GASTROINTESTINAL: Abdomen soft, non-tender, nondistended. Hepatic and splenic margins not palpable. MUSCULOSKELETAL: Extremities without clubbing, cyanosis, or edema. No obvious deformities. Right groin with no hematoma/ecchymosis. IABP appears in place. Distal pulses palpable NEUROLOGICAL: Awake and alert. No obvious cranial nerve deficits. Motor grossly within normal limits. Five out of 5 muscle strength in the arms and legs. Normal speech. PSYCHIATRIC: Appropriate mood and affect; insight and judgment normal. Laboratory Laboratory Tests Test 06/08/17 18:02 06/09/17 05:18 06/09/17 10:31 06/09/17 13:27 Activated Partial Thromboplast Time 44.8 SEC 37.6 SEC White Blood Count 9.3 TH/MM3 Red Blood Count 4.11 MIL/MM3 Hemoglobin 13.4 GM/DL Hematocrit 39.1 % Mean Corpuscular Volume 95.2 FL Mean Corpuscular Hemoglobin 32.7 PG Mean Corpuscular Hemoglobin Concent 34.3 % Red Cell Distribution Width 13.6 % Platelet Count 127 TH/MM3 Mean Platelet Volume 8.5 FL Neutrophils (%) (Auto) 72.3 % Lymphocytes (%) (Auto) 16.3 % Monocytes (%) (Auto) 8.8 % Eosinophils (%) (Auto) 2.2 % Basophils (%) (Auto) 0.4 % Neutrophils # (Auto) 6.7 TH/MM3 Lymphocytes # (Auto) 1.5 TH/MM3 Monocytes # (Auto) 0.8 TH/MM3 Eosinophils # (Auto) 0.2 TH/MM3 Basophils # (Auto) 0.0 TH/MM3 CBC Comment DIFF FINAL Differential Comment Blood Urea Nitrogen 19 MG/DL Creatinine 0.77 MG/DL Random Glucose 127 MG/DL Total Protein 6.7 GM/DL Albumin 3.2 GM/DL Calcium Level 8.2 MG/DL Alkaline Phosphatase 48 U/L Aspartate Amino Transf (AST/SGOT) 83 U/L Alanine Aminotransferase (ALT/SGPT) 119 U/L Total Bilirubin 0.5 MG/DL Sodium Level 137 MEQ/L Potassium Level 4.0 MEQ/L Chloride Level 104 MEQ/L Carbon Dioxide Level 29.3 MEQ/L Anion Gap 4 MEQ/L Estimat Glomerular Filtration Rate 102 ML/MIN Urine Color LIGHT-YELLOW Urine Turbidity CLEAR Urine pH 6.5 Urine Specific [place] 1.008 Urine Protein NEG mg/dL Urine Glucose (UA) NEG mg/dL Urine Ketones NEG mg/dL Urine Occult Blood NEG Urine Nitrite NEG Urine Bilirubin NEG Urine Urobilinogen LESS THAN 2.0 MG/DL Urine Leukocyte Esterase NEG Urine RBC 1 /hpf Urine WBC LESS THAN 1 /hpf Urine Hyaline Casts 1 /lpf Microscopic Urinalysis Comment CULT NOT INDICATED Imaging Last 24 hours Impressions Chest X-Ray 06/09/17 0600 Signed Impressions: Service Date/Time: Friday, June 09, 2017 03:29 - CONCLUSION: No acute disease. Rk Barrera MD Assessment and Plan Problem List: (1) Ventricular fibrillation ICD Codes: I49.01 - Ventricular fibrillation Status: Acute (2) Cardiac arrest ICD Codes: I46.9 - Cardiac arrest, cause unspecified Status: Acute (3) CAD (coronary artery disease) ICD Codes: I25.10 - Atherosclerotic heart disease of [place] coronary artery without angina pectoris (4) Left main coronary artery disease ICD Codes: I25.10 - Atherosclerotic heart disease of [place] coronary artery without angina pectoris (5) Multi-vessel coronary artery stenosis ICD Codes: I25.10 - Atherosclerotic heart disease of [place] coronary artery without angina pectoris Assessment and Plan 1) V. Fib arrest Secondary to ischemia Started on Amiodarone drip 2) NSTEMI/CAD Significant CAD with LM/LAD/LCx disease Plan for CABG once able to with recent Plavix dose (last taken 06/07/17) Discussed with Dr. Nelson IABP placed Con't heparin drip Assess distal pulses frequently 3) EF 40%, trace to mild Casper Cam DO Jun 09, 2017 15:47
--- NOTE | 2017-06-09 15:49 | PD.CAR.PN ---
CVT Progress Note Subjective/Hospital Course: sts data discussed with pt RISK SCORES About the STS Risk Calculator Procedure: CAB Only Risk of Mortality: 1.469% Morbidity or Mortality: 22.715% Long Length of Stay: 8.065% Short Length of Stay: 32.987% Permanent Stroke: 0.69% Prolonged Ventilation: 22.591% DSW Infection: 0.439% Renal Failure: 1.972% Reoperation: 6.112% Objective: Vital Signs Date Time Temp Pulse Resp B/P (MAP) Pulse Ox O2 Delivery O2 Flow Rate FiO2 06/09/17 15:17 75 148/77 06/09/17 14:00 06/09/17 13:00 06/09/17 12:00 06/09/17 11:00 109/63 (98) 06/09/17 11:00 99.5 111 18 142/98 (113) 97 Arterial Line 06/09/17 11:00 79 06/09/17 10:00 06/09/17 09:00 06/09/17 08:00 06/09/17 07:00 99.6 71 18 105/51 (69) 95 06/09/17 07:00 71 06/09/17 07:00 109/66 (103) 06/09/17 06:00 106/68 (88) 06/09/17 05:00 103/64 (87) 06/09/17 04:00 107/67 06/09/17 03:00 95/54 (88) 06/09/17 03:00 66 06/09/17 03:00 98.1 65 14 134/69 (90) 97 06/09/17 02:00 112/72 06/09/17 01:00 105/74 06/09/17 00:19 16 06/09/17 00:00 107/67 06/08/17 23:00 98.2 64 16 148/89 (108) 97 06/08/17 23:00 67 06/08/17 23:00 95/54 (88) 06/08/17 22:00 107/68 (66) 06/08/17 21:00 107/68 06/08/17 20:50 97 Nasal Cannula 2.00 06/08/17 20:00 105/60 (71) 06/08/17 19:00 95/54 (88) 06/08/17 19:00 98.2 64 16 148/89 (108) 97 Arterial Line 06/08/17 19:00 67 06/08/17 17:18 64 117/64 06/08/17 17:00 102/62 (92) 06/08/17 16:00 93/57 (92) 06/08/17 15:58 97 Nasal Cannula 2.00 Labs: Laboratory Tests Test 06/09/17 05:18 06/09/17 10:31 06/09/17 13:27 White Blood Count 9.3 TH/MM3 (4.0-11.0) Red Blood Count 4.11 MIL/MM3 (4.50-5.90) Hemoglobin 13.4 GM/DL (13.0-17.0) Hematocrit 39.1 % (39.0-51.0) Mean Corpuscular Volume 95.2 FL (80.0-100.0) Mean Corpuscular Hemoglobin 32.7 PG (27.0-34.0) Mean Corpuscular Hemoglobin Concent 34.3 % (32.0-36.0) Red Cell Distribution Width 13.6 % (11.6-17.2) Platelet Count 127 TH/MM3 (150-450) Mean Platelet Volume 8.5 FL (7.0-11.0) Neutrophils (%) (Auto) 72.3 % (16.0-70.0) Lymphocytes (%) (Auto) 16.3 % (9.0-44.0) Monocytes (%) (Auto) 8.8 % (0.0-8.0) Eosinophils (%) (Auto) 2.2 % (0.0-4.0) Basophils (%) (Auto) 0.4 % (0.0-2.0) Neutrophils # (Auto) 6.7 TH/MM3 (1.8-7.7) Lymphocytes # (Auto) 1.5 TH/MM3 (1.0-4.8) Monocytes # (Auto) 0.8 TH/MM3 (0-0.9) Eosinophils # (Auto) 0.2 TH/MM3 (0-0.4) Basophils # (Auto) 0.0 TH/MM3 (0-0.2) CBC Comment DIFF FINAL Differential Comment Blood Urea Nitrogen 19 MG/DL (7-18) Creatinine 0.77 MG/DL (0.60-1.30) Random Glucose 127 MG/DL (74-106) Total Protein 6.7 GM/DL (6.4-8.2) Albumin 3.2 GM/DL (3.4-5.0) Calcium Level 8.2 MG/DL (8.5-10.1) Alkaline Phosphatase 48 U/L (45-117) Aspartate Amino Transf (AST/SGOT) 83 U/L (15-37) Alanine Aminotransferase (ALT/SGPT) 119 U/L (12-78) Total Bilirubin 0.5 MG/DL (0.2-1.0) Sodium Level 137 MEQ/L (136-145) Potassium Level 4.0 MEQ/L (3.5-5.1) Chloride Level 104 MEQ/L (98-107) Carbon Dioxide Level 29.3 MEQ/L (21.0-32.0) Anion Gap 4 MEQ/L (5-15) Estimat Glomerular Filtration Rate 102 ML/MIN (>89) Activated Partial Thromboplast Time 37.6 SEC (24.3-30.1) Urine Color LIGHT-YELLOW (YELLW/STRAW) Urine Turbidity CLEAR (CLEAR) Urine pH 6.5 (5.0-8.5) Urine Specific [place] 1.008 (1.002-1.035) Urine Protein NEG mg/dL (NEG-TRACE) Urine Glucose (UA) NEG mg/dL (NEG) Urine Ketones NEG mg/dL (NEG) Urine Occult Blood NEG (NEG) Urine Nitrite NEG (NEG) Urine Bilirubin NEG (NEG) Urine Urobilinogen LESS THAN 2.0 MG/DL (LESS Urine Leukocyte Esterase NEG (NEG) Urine RBC 1 /hpf (0-3) Urine WBC LESS THAN 1 /hpf (0-5) Urine Hyaline Casts 1 /lpf (RARE) Microscopic Urinalysis Comment CULT NOT INDICATED Result Diagram: 06/09/1751706/09/17517 (1) Ventricular fibrillation (2) Cardiac arrest (3) CAD (coronary artery disease) (4) Left main coronary artery disease (5) Multi-vessel coronary artery stenosis Leelee Farias Jun 09, 2017 15:49
[2017-06-09] MEDS: oxyCODONE/ACETAMINOPHEN 5 MG/325 MG TAB PO PRN (21:12)
[2017-06-09 21:17] LABS: APTT (PATIENT) 39.5 SEC (24.3-30.1)
[2017-06-10] VITALS (9 sets, daily range): BP systolic 122–170; BP diastolic 66–106; PULSE 61–70; RESP 16–18; TEMP 97.9–98.3; O2SAT 95–97
[2017-06-10] MEDS: CHLORHEXIDINE GLUCONATE 2 % 1 PACK (2 CLOTHS) TOP SCH (04:00)
[2017-06-10] MEDS: oxyCODONE/ACETAMINOPHEN 5 MG/325 MG TAB PO PRN ×2 (04:24→20:58)
[2017-06-10 04:37] LABS: HEMATOCRIT 39.1 % (39.0-51.0); MEAN CELL VOLUME 95.6 FL (80.0-100.0); MEAN CORPUSCULAR HEMOGLOBIN 32.7 PG (27.0-34.0); MEAN CORPUSCULAR HGB CONC 34.2 % (32.0-36.0); PLATELET COUNT 121 TH/MM3 (150-450); RED BLOOD COUNT 4.09 MIL/MM3 (4.50-5.90); RED CELL DISTRIBUTION WIDTH 13.2 % (11.6-17.2); REVIEW FLAG FINAL; WHITE BLOOD COUNT 9.2 TH/MM3 (4.0-11.0)
[2017-06-10 04:42] LABS: APTT (PATIENT) 43.3 SEC (24.3-30.1)
[2017-06-10 04:46] LABS: P2Y12 REACTION UNITS (PRU) 185 PRU (194-418)
[2017-06-10] MEDS: FAMOTIDINE 20 MG/2 ML VIAL IV PUSH SCH ×2 (05:41→17:58)
[2017-06-10] MEDS: AMIODARONE INJ 450 MG in DEXTROSE 5% IN WATE(EXCEL) INJ 241 ML IV PRN ×2 (05:52)
--- NOTE | 2017-06-10 07:30 | MB ---
cc: RANDY RICHTER MD DATE OF CONSULTATION: 06/09/2017 DATE OF : 1955 HISTORY OF PRESENT ILLNESS This 62-year-old male was apparently at the [employer] car show at [facility] over the weekend. Admit date was 06/07/2017. The patient is visiting from the [facility]. He was walking around the car show. Per the notes from Dr. Perdomo the patient apparently told somebody that he was not feeling well. They got him a chair and when he sat down he passed out. He was found to not have a pulse by an off duty EMS who started CPR. EMS was immediately there. He was found to be in ventricular fibrillation arrest. He was defibrillated twice and was intubated. They were able to return spontaneous circulation. He subsequently was transferred to our facility where he underwent cardiac cath which showed left main disease of 90%. The LAD had a 90% stenosis in the ostial portion. The left circumflex had a 90% stenosis in the proximal portion. There was a stent in the midportion with a 50% in-stent restenosis. The right coronary artery was small and nondominant. An intra-aortic balloon pump was placed in the slab worker by Dr. Perdomo for left main disease. PAST MEDICAL HISTORY 1. Coronary artery disease with stenting of the RCA; he believes in 2007. 2. Hypertension. 3. Diabetes mellitus. 4. History of prior [place]. 5. Hyperlipidemia. 6. Tobacco abuse. ALLERGIES PENICILLIN. MEDICATIONS Home medications include: 1. Plavix 75, daily. 2. Ranexa 500, b.i.d. 3. Simvastatin 40, daily. 4. Imdur 30, daily. 5. Atenolol 25, daily. 6. Lisinopril 40, daily. 7. Mobic 7.5, p.r.n. 8. Zoloft daily. 9. Omeprazole daily. SOCIAL HISTORY Smokes cigars daily. His son is here visiting from the [place] area. Drinks occasionally. REVIEW OF SYSTEMS A 14-point review of systems review of systems was performed with pertinent positives and negatives as above, otherwise negative. PHYSICAL EXAMINATION VITAL SIGNS: Blood pressure 140/90, heart rate 78, T-max 99.5. GENERAL: The patient is awake and alert, in no acute distress. HEENT: Head is normocephalic, atraumatic. Pupils equal and reactive. Oral mucosa is pink and moist. NECK: Supple. No JVD. HEART: Heart sounds S1, S2, regular rate and rhythm. No audible rubs, murmurs or gallops. Intra-aortic balloon pump is in place. LUNGS: Diminished in the bases, otherwise clear to auscultation. ABDOMEN: Obese. Soft. EXTREMITIES: Fair distal pulses. Good capillary refill. LABORATORY Lab work shows hemoglobin 13, hematocrit 39, white cell count 9.3, platelet count 127. Sodium 137, potassium 4.0, BUN 19, creatinine 0.7, glucose 127. AST 83, ALT 119. Troponin 10.3. Triglycerides 233, cholesterol 181, LDL 93, HDL 42. Platelet inhibition test on the was 198. Repeat is pending in the morning. Urinalysis is unremarkable. MRSA screen non-detected. IMAGING Chest x-ray: No acute disease. Carotid ultrasound shows some mild visible plaque in the carotid arteries. No hemodynamically significant stenosis identified. Ultrasound of the lower extremities is negative for DVT. There is a 5 cm right popliteal cyst. EKG EKG shows sinus rhythm with subendocardial injury, ST depression throughout. ECHOCARDIOGRAM Echocardiogram shows EF of 40%, trace tricuspid valve regurgitation, mild mitral valve regurgitation. IMPRESSION This is a 62-year-old male visiting from the [facility] area, status post ventricular fibrillation arrest, defibrillated x2, intubated and extubated, status post cardiac catheterization with multivessel disease. Cardiac films have been reviewed by Dr. Randy Richter. PLAN The plan will be for coronary artery bypass grafting on FridayJune 11. The patient continues on heparin drip and amiodarone. Currently the patient is pain free. STS data will be documented in the electronic record and discussed with the patient. At this time he is not on a statin due to his elevated LFTs. This could have been related to possible initial ventricular fibrillation arrest and episode of post-shock syndrome. The procedures, alternatives and risks have been discussed with the patient and the son. Plan again will be for surgery on Friday. He will be resumed on Plavix post surgery. Dictated by: GHAZALA Major Randy ELIAS/LISE /3:34 PM /7:24 AM
[2017-06-10] MEDS: HEPARIN-D5W 25,000 U/250 ML 250 ML IV PRN (07:55)
[2017-06-10] MEDS: INSULIN ASPART SUPPLEMENTAL SCALE SQ SCH ×4 (08:00→21:00)
[2017-06-10] MEDS: SODIUM CHLORIDE 0.9% FLUSH 10 ML FLUSH IV FLUSH SCH ×4 (09:00→21:00)
[2017-06-10] MEDS ORDERED: hydrALAZINE HCL 20 MG/ML VIAL IV PUSH PRN (09:00)
[2017-06-10] MEDS: DOCUSATE SODIUM 50 MG/SENNA 8.6 MG TAB PO SCH ×2 (09:25→20:58)
[2017-06-10] MEDS: MUPIROCIN 2% OINT 1 APPLIC/GM SYR EACH NARE SCH ×2 (09:25→21:00)
[2017-06-10] MEDS: METOPROLOL TARTRATE 25 MG TAB PO SCH ×2 (09:26→20:57)
[2017-06-10] MEDS: ASPIRIN 81 MG CHEW TAB CHEW SCH (09:26)
[2017-06-10] MEDS: amLODIPine BESYLATE 5 MG TAB PO SCH (09:46)
[2017-06-10] MEDS: AMIODARONE 200 MG TAB PO SCH ×2 (11:32→20:57)
--- NOTE | 2017-06-10 12:33 | HHI.CCPN ---
Subjective Remarks/Hospital Course 06/07: This is a 62-year-old male was brought in by EMS after cardiac arrest. The patient is from [place] and was at the [facility] walking around when he had a syncopal episode. A bystander began chest compressions and an AED was located, the rhythm revealed Vfib and the patient was defibrillated 2. Upon EMS arrival the patient was intubated, the patient woke up and self extubated. The patient was transported to the ED for evaluation. Patient states that he has aching chest pain. The patient medical history is significant for CAD status post [place] in 2007. Patient status post stent placement on dual antiplatelet therapy , aspirin 81 mg daily along with Plavix. Patient has history hypertension. Cardiology was consulted, Dr. Perdomo, the patient was placed on a heparin infusion and the ED, critical care medicine was consulted for management. 06/08: Patient underwent cardiac catheterization by Dr. Perdomo last night which revealed 90% left main stenosis, 90% proximal LAD and 90% proximal circumflex stenosis. Patient on heparin and amiodarone drips. Cardiothoracic surgery consulted for evaluation for CABG. Patient is Resting in bed at the time of my evaluation. Denies any chest pain currently. IABP in place with 1: 1 augmentation 06/09: In bed comfortably. Occasional ectopy last night. IABP remains in place. Patient has been evaluated by CT surgery and is awaiting CABG. 06/10: Resting in bed comfortably. Denies any chest pain or shortness of breath. IABP in place. Awaiting CT surgery which is scheduled for tomorrow. Objective Vital Signs Date Time Temp Pulse Resp B/P (MAP) Pulse Ox O2 Delivery O2 Flow Rate FiO2 06/10/17 11:29 70 06/10/17 11:29 98.1 17 /106 97 137/79 (98) 06/10/17 07:15 Nasal Cannula 2.00 Intake and Output 06/10/17 06/10/17 06/11/17 08:00 16:00 00:00 Intake Total 1226 ml Output Total 300 ml Balance 926 ml Result Diagram: 06/10/17 0334 06/09/17 0518 Imaging Last Impressions Chest X-Ray 06/07/17 5164 Signed Impressions: Service Date/Time: Wednesday, June 07, 2017 15:29 - CONCLUSION: The lungs are clear. Willie Vasquez MD Objective Remarks HEENT/Neuro: No pallor or icterus, tongue moist, ELISSA, sleeping, awakens easily , nonfocal grossly, moving all 4 extremities Neck: No JVD Chest/pulmonary: CTA bilaterally Cardiovascular: S1-S2 regular no gallop or murmur GI/abdomen: Soft, nontender, bowel sounds present Extremities: Warm bilaterally, no edema. IABP in place via right groin, insertion site with no evidence of hematoma. A/P Assessment and Plan Assessment This is a 62-year-old morbidly obese male with a past medical history significant for coronary artery disease status post V. fib arrest, non-ST elevation [place] status post cardiac catheterization with multivessel CAD involving left main, LAD, circumflex for which patient is being evaluated for CABG Plan Neurologic: Chest pain secondary to chest compressions Follow neuro status Tylenol when necessary Morphine 2 mg every 3 hours when necessary for breakthrough pain on scale of 7- 10 Respiratory: Maintain O2 sat greater than 92% O2 2 L nasal cannula Duo nebs every 4 hours when necessary for wheezing Cardiovascular: Angina/ non-ST elevation IL Coronary artery disease Status post V. fib arrest Status post [place] 2007 with stent placement Cardiology consulted -Dr. Perdomo. Cardiac catheterization revealed multivessel CAD involving left main, LAD, circumflex for which patient will require CABG, CT surgery consulted On Heparin infusion. Continue aspirin per cardiology. Continue amiodarone gtt. IABP in place. Awaiting CT surgery by Dr. Radha Nelson Renal: CHUY Place condom catheter -- Strict I/Os, monitor and replete electrolytes, follow BUN/creatinine. FEN/GI: Nausea Morbid obesity Electrolyte disturbances IV hydration with normal saline at 84 cc/hour Zofran every 4 hours when necessary for nausea PO diet as tolerated Famotidine GI prophylaxis Heme/ID: Monitor CBC Endocrine: Glucose monitoring per ICU protocol Obtain hemoglobin A1c -- SSI Prophylaxis: GI Prophylaxis Famotidine twice a day DVT Prophylaxis -- SCDs Heparin infusion Lines: Peripheral IVs providing adequate access Dispo: Awaiting CABG, CT surgery following. Yash Waterman MD Jun 10, 2017 12:33
[2017-06-10 12:38] LABS: APTT (PATIENT) 55.1 SEC (24.3-30.1)
[2017-06-10 13:04] LABS: ALKALINE PHOSPHATASE 47 U/L (45-117); ALT (GPT) 93 U/L (12-78); ANION GAP 4 MEQ/L (5-15); AST (GOT) 65 U/L (15-37); BICARBONATE 34.1 MEQ/L (21.0-32.0); BLOOD UREA NITROGEN 17 MG/DL (7-18); CHLORIDE 99 MEQ/L (98-107); GLOMERULAR FILTRATION RATE 69 ML/MIN (>89); MAGNESIUM 1.9 MG/DL (1.5-2.5); POTASSIUM 4.3 MEQ/L (3.5-5.1); SODIUM (NA) 137 MEQ/L (136-145); TOTAL BILIRUBIN ADULT 0.6 MG/DL (0.2-1.0)
--- NOTE | 2017-06-10 16:06 | PD.CAR.PN ---
CVT Progress Note Subjective/Hospital Course: 62-year-old male was apparently at the [place] [employer] car show at [facility] over the weekend. Admit date was 06/07/2017. The patient is visiting from the [facility] area. He was walking around the car show. Per the notes from Dr. Perdomo the patient apparently told somebody that he was not feeling well. They got him a chair and when he sat down he passed out. He was found to not have a pulse by an off duty EMS who started CPR. EMS was immediately there. He was found to be in ventricular fibrillation arrest. He was defibrillated twice and was intubated. They were able to get immediate ROSC ,. He subsequently was transferred to our facility where he underwent cardiac cath which showed left main disease of 90%. The LAD had a 90% stenosis in the ostial portion. The left circumflex had a 90% stenosis in the proximal portion. There was a stent in the midportion with a 50% in-stent restenosis. The right coronary artery was small and nondominant. An intra-aortic balloon pump was placed in the wheelabrator operator by Dr. Perdomo for left main disease. PAST MEDICAL HISTORY : . Coronary artery disease with stenting of the RCA; he believes in 2007, Hypertension, Diabetes mellitus, History of prior [place], Hyperlipidemia, Tobacco abuse. 06/10 remains pain free, on Heparin gtt, BP elevated this am , IABP 1:2 BB increased, amiodarone changed to po, norvasc added PRU returned at 185/ from 198 / plt count 191> [address] Dr [address] and Dr Nelson aware , may need to re-schedule surgery Objective: GENERAL: SKIN: Warm and dry. HEAD: Normocephalic. EYES: No scleral icterus. No injection or drainage. NECK: Supple, trachea midline. No JVD or lymphadenopathy. CARDIOVASCULAR: Regular rate and rhythm without murmurs, gallops, or rubs. IABP good augmentation , + distal pulses, 1:2 RESPIRATORY: Breath sounds equal bilaterally. No accessory muscle use. GASTROINTESTINAL: Abdomen soft, non-tender, nondistended. MUSCULOSKELETAL: No cyanosis, or edema. BACK: Nontender without obvious deformity. No CVA tenderness. Vital Signs Date Time Temp Pulse Resp B/P (MAP) Pulse Ox O2 Delivery O2 Flow Rate FiO2 06/10/17 13:00 06/10/17 12:00 06/10/17 11:29 70 06/10/17 11:29 98.1 66 17 /106 97 137/79 (98) 06/10/17 11:25 06/10/17 10:03 06/10/17 09:16 06/10/17 08:12 06/10/17 07:30 98.1 66 17 170/106 (127) 97 136/76 (96) 06/10/17 07:29 06/10/17 07:28 66 06/10/17 07:15 96 Nasal Cannula 2.00 06/10/17 05:52 97 145/71 06/10/17 05:33 18 06/10/17 03:00 98.3 69 17 151/96 (114) 97 133/74 (93) 06/10/17 03:00 69 06/10/17 03:00 133/74 (132) 06/09/17 23:00 109/57 (95) 06/09/17 23:00 98.5 64 16 148/69 (95) 97 109/57 (74) 06/09/17 23:00 64 06/09/17 22:52 99 Nasal Cannula 2.00 06/09/17 19:00 106/64 (99) 06/09/17 19:00 76 06/09/17 19:00 98.6 76 18 135/75 (95) 97 106/64 (78) 06/09/17 18:00 110/65 (135) 06/09/17 17:00 113/60 (100) 06/09/17 16:00 Labs: Laboratory Tests Test 06/10/17 12:19 Activated Partial Thromboplast Time 55.1 SEC (24.3-30.1) Blood Urea Nitrogen 17 MG/DL (7-18) Creatinine 1.08 MG/DL (0.60-1.30) Random Glucose 121 MG/DL (74-106) Total Protein 7.0 GM/DL (6.4-8.2) Albumin 3.3 GM/DL (3.4-5.0) Calcium Level 9.2 MG/DL (8.5-10.1) Phosphorus Level 4.1 MG/DL (2.5-4.9) Magnesium Level 1.9 MG/DL (1.5-2.5) Alkaline Phosphatase 47 U/L (45-117) Aspartate Amino Transf (AST/SGOT) 65 U/L (15-37) Alanine Aminotransferase (ALT/SGPT) 93 U/L (12-78) Total Bilirubin 0.6 MG/DL (0.2-1.0) Sodium Level 137 MEQ/L (136-145) Potassium Level 4.3 MEQ/L (3.5-5.1) Chloride Level 99 MEQ/L (98-107) Carbon Dioxide Level 34.1 MEQ/L (21.0-32.0) Anion Gap 4 MEQ/L (5-15) Estimat Glomerular Filtration Rate 69 ML/MIN (>89) Result Diagram: 06/10/17 0334 06/10/17 1219 Telemetry: NSR (1) Ventricular fibrillation Plan: NSR, on po amiodarone (2) Cardiac arrest (3) CAD (coronary artery disease) Plan: on ASA, Heparin BB amiodarone PRU 185 hold and reschedule surgery for thur recheck PRU on wed am (4) Left main coronary artery disease (5) Multi-vessel coronary artery stenosis (6) Elevated LFTs Plan: indices improving Leelee Farias Jun 10, 2017 16:06
[2017-06-10] MEDS ORDERED: ALPRAZolam 0.25 MG TAB PO PRN (18:45)
--- NOTE | 2017-06-10 19:34 | PD.CARD.PN ---
Subjective Subjective Remarks No events overnight No further arrhythmias No chest pain Objective Medications Current Medications Medications (Trade) Dose Ordered Sig/Margaret Route Start Time Stop Time Status Last Admin Heparin Sodium/ Dextrose 250 ml @ 10 mls/hr TITRATE PRN IV 06/07/17 15:15 06/10/17 07:55 (NS Flush) 2 ml UNSCH PRN IV FLUSH 06/07/17 16:45 (NS Flush) 2 ml BID IV FLUSH 06/07/17 21:00 06/10/17 09:25 (Tylenol) 650 mg Q6H PRN PO 06/07/17 16:45 (Zofran Inj) 4 mg Q6H PRN IV PUSH 06/07/17 16:45 (Duoneb Neb) 1 ampule Q4HR NEB PRN INH 06/07/17 16:45 Miscellaneous Information 1 Q361D XX 06/07/17 16:45 (Chlorhexidine 2% Cloth) 3 pack Taper DAILY@04 TOP 06/08/17 04:00 06/04/18 03:59 06/10/17 04:00 (Chlorhexidine 2% Cloth) 3 pack UNSCH PRN TOP 06/07/17 16:45 (Basilia-Colace) 1 tab BID PO 06/07/17 21:00 06/10/17 09:25 (Milk Of Magnesia Liq) 30 ml Q12H PRN PO 06/07/17 16:45 (Senokot) 17.2 mg Q12H PRN PO 06/07/17 16:45 (Dulcolax Supp) 10 mg DAILY PRN RECTAL 06/07/17 16:45 (Lactulose Liq) 30 ml DAILY PRN PO 06/07/17 16:45 (D50w (Vial) Inj) 50 ml UNSCH PRN IV PUSH 06/07/17 16:45 (Glucagon Inj) 1 mg UNSCH PRN OTHER 06/07/17 16:45 (NovoLOG SUPPLEMENTAL SCALE) 1 ACHS SLIDING SCALE SQ 06/07/17 17:00 06/09/17 12:56 (Morphine Inj) 2 mg Q3H PRN IV PUSH 06/07/17 16:45 (Aspirin Chew) 81 mg DAILY CHEW 06/08/17 09:00 Future Hold 06/10/17 09:26 (Lopressor) 25 mg Q12HR PO 06/07/17:00 06/10/17 09:26 (Pepcid Inj) 20 mg Q12H IV PUSH 06/07/17 18:00 06/10/17 17:58 (Percocet 5-325 Mg) 1 tab Q4H PRN PO 06/07/17 19:30 06/08/17 20:01 (Percocet 5-325 Mg) 2 tab Q4H PRN PO 06/07/17 19:30 06/10/17 04:24 Amiodarone HCl 450 mg/Dextrose 250 ml @ 33.33 mls/ hr Q7H31M PRN IV 06/07/17 19:27 06/10/17 05:52 (NS Flush) 2 ml BID IV FLUSH 06/08/17 21:00 06/09/17 20:20 (NS Flush) 2 ml UNSCH PRN IV FLUSH 06/08/17 09:45 Papaverine HCl 60 mg/Nitroglycerin 100 mcg/Diltiazem HCl 100 mg/Sodium Chloride 100 ml @ 0 mls/hr ENGAGEMENT SPECIALIST IRRIGATION 06/08/17 09:45 06/15/17 09:44 Cefazolin Sodium 500 mg/Sodium Chloride 505 ml @ 0 mls/hr ENGAGEMENT SPECIALIST IRRIGATION 06/08/17 09:45 06/15/17 09:44 Cefazolin Sodium/ Dextrose 50 ml @ 150 mls/hr ENGAGEMENT SPECIALIST IV 06/08/17 09:45 06/15/17 09:44 (Lopressor) 12.5 mg ENGAGEMENT SPECIALIST PO 06/08/17 09:45 06/15/17 09:44 (Bactroban Nasal 2% Oint) 1 applic BID EACH NARE 06/08/17 21:00 06/13/17 20:59 06/10/17 09:25 (Hibiclens 4% Top Soln) 1 applic ENGAGEMENT SPECIALIST TOPICAL 06/08/17 09:45 06/15/17 09:44 Insulin Human Regular 100 units/ Sodium Chloride 100 ml @ 3 mls/hr TITRATE PRN IV 06/08/17 09:45 06/15/17 09:44 (D50w (Vial) Inj) 50 ml UNSCH PRN IV PUSH 06/08/17 09:45 (Norvasc) 5 mg DAILY PO 06/10/17 09:00 06/10/17 09:46 (Apresoline Inj) 10 mg Q4H PRN IV PUSH 06/10/17 09:00 (Cordarone) 400 mg Q12HR PO 06/10/17 11:00 06/10/17 11:32 (Xanax) 0.25 mg Q8H PRN PO 06/10/17 18:45 Vital Signs / I&O Vital Signs Date Time Temp Pulse Resp B/P (MAP) Pulse Ox O2 Delivery O2 Flow Rate FiO2 06/10/17 18:00 06/10/17 17:00 06/10/17 16:00 06/10/17 15:00 97.9 64 16 97 122/66 (84) 06/10/17 15:00 06/10/17 15:00 64 06/10/17 14:00 06/10/17 13:00 06/10/17 12:00 06/10/17 11:29 70 06/10/17 11:29 98.1 66 17 /106 97 137/79 (98) 06/10/17 11:25 06/10/17 10:03 06/10/17 09:16 06/10/17 08:12 06/10/17 07:30 98.1 66 17 170/106 (127) 97 136/76 (96) 06/10/17 07:29 06/10/17 07:28 66 06/10/17 07:15 96 Nasal Cannula 2.00 06/10/17 05:52 97 145/71 06/10/17 05:33 18 06/10/17 03:00 98.3 69 17 151/96 (114) 97 133/74 (93) 06/10/17 03:00 69 06/10/17 03:00 133/74 (132) 06/09/17 23:00 109/57 (95) 06/09/17 23:00 98.5 64 16 148/69 (95) 97 109/57 (74) 06/09/17 23:00 64 06/09/17 22:52 99 Nasal Cannula 2.00 I/O 06/09/17 06/09/17 06/09/17 06/10/17 06/10/17 06/10/17 07:00 15:00 23:00 07:00 15:00 23:00 Intake Total 240 ml 1030 ml 976 ml 340.6 ml 480 ml Output Total 790 ml 2000 ml 300 ml 500 ml Balance -550 ml -970 ml 676 ml 340.6 ml -20 ml Intake Oral 240 ml 300 ml 660 ml 480 ml IV Total 730 ml 316 ml 340.6 ml Output Urine Total 790 ml 2000 ml 300 ml 500 ml # Voids 2 # Bowel Movements 0 0 Physical Exam GENERAL: NAD, AAOx3 (previously after yesterday's events was only x2) SKIN: Warm and dry. HEAD: Atraumatic. Normocephalic. EYES: Pupils equal and round. No scleral icterus. No injection or drainage. ENT: No nasal bleeding or discharge. Mucous membranes pink and moist. NECK: Trachea midline. No JVD. CARDIOVASCULAR: Regular rate and rhythm. RESPIRATORY: No accessory muscle use. Clear to auscultation. Breath sounds equal bilaterally. GASTROINTESTINAL: Abdomen soft, non-tender, nondistended. Hepatic and splenic margins not palpable. MUSCULOSKELETAL: Extremities without clubbing, cyanosis, or edema. No obvious deformities. Right groin with no hematoma/ecchymosis. IABP appears in place. Distal pulses palpable NEUROLOGICAL: Awake and alert. No obvious cranial nerve deficits. Motor grossly within normal limits. Five out of 5 muscle strength in the arms and legs. Normal speech. PSYCHIATRIC: Appropriate mood and affect; insight and judgment normal. Laboratory Laboratory Tests Test 06/09/17 20:32 06/10/17 03:34 06/10/17 12:19 Activated Partial Thromboplast Time 39.5 SEC 43.3 SEC 55.1 SEC White Blood Count 9.2 TH/MM3 Red Blood Count 4.09 MIL/MM3 Hemoglobin 13.4 GM/DL Hematocrit 39.1 % Mean Corpuscular Volume 95.6 FL Mean Corpuscular Hemoglobin 32.7 PG Mean Corpuscular Hemoglobin Concent 34.2 % Red Cell Distribution Width 13.2 % Platelet Count 121 TH/MM3 Mean Platelet Volume 9.1 FL Platelet Function P2Y12 React Units 185 PRU Blood Urea Nitrogen 17 MG/DL Creatinine 1.08 MG/DL Random Glucose 121 MG/DL Total Protein 7.0 GM/DL Albumin 3.3 GM/DL Calcium Level 9.2 MG/DL Phosphorus Level 4.1 MG/DL Magnesium Level 1.9 MG/DL Alkaline Phosphatase 47 U/L Aspartate Amino Transf (AST/SGOT) 65 U/L Alanine Aminotransferase (ALT/SGPT) 93 U/L Total Bilirubin 0.6 MG/DL Sodium Level 137 MEQ/L Potassium Level 4.3 MEQ/L Chloride Level 99 MEQ/L Carbon Dioxide Level 34.1 MEQ/L Anion Gap 4 MEQ/L Estimat Glomerular Filtration Rate 69 ML/MIN Assessment and Plan Problem List: (1) Ventricular fibrillation ICD Codes: I49.01 - Ventricular fibrillation Status: Acute (2) Cardiac arrest ICD Codes: I46.9 - Cardiac arrest, cause unspecified Status: Acute (3) CAD (coronary artery disease) ICD Codes: I25.10 - Atherosclerotic heart disease of [place] coronary artery without angina pectoris (4) Left main coronary artery disease ICD Codes: I25.10 - Atherosclerotic heart disease of [place] coronary artery without angina pectoris (5) Multi-vessel coronary artery stenosis ICD Codes: I25.10 - Atherosclerotic heart disease of [place] coronary artery without angina pectoris (6) Elevated LFTs ICD Codes: R79.89 - Other specified abnormal findings of blood chemistry Assessment and Plan 1) V. Fib arrest Secondary to ischemia Started on Amiodarone drip, changed to PO 2) NSTEMI/CAD Significant CAD with LM/LAD/LCx disease Plan for CABG once able to with recent Plavix dose (last taken 06/07/17) Discussed with Dr. Nelson IABP placed Con't heparin drip Assess distal pulses frequently Changed to 1:2 PRU decreased... will plan to check again tomorrow and possible surgery 3) EF 40%, trace to mild PerdomoCasper DO Jun 10, 2017 19:34
[2017-06-11] VITALS (7 sets, daily range): BP systolic 120–168; BP diastolic 67–85; PULSE 62–78; RESP 18–22; TEMP 98.1–98.8; O2SAT 92–97
[2017-06-11] MEDS: HEPARIN-D5W 25,000 U/250 ML 250 ML IV PRN ×2 (02:08→21:45)
[2017-06-11] MEDS: CHLORHEXIDINE GLUCONATE 2 % 1 PACK (2 CLOTHS) TOP SCH ×2 (04:00→23:58)
[2017-06-11 04:58] LABS: APTT (PATIENT) 51.1 SEC (24.3-30.1)
[2017-06-11 05:02] LABS: P2Y12 REACTION UNITS (PRU) 227 PRU (194-418)
[2017-06-11] MEDS: FAMOTIDINE 20 MG/2 ML VIAL IV PUSH SCH ×2 (06:40→17:50)
--- NOTE | 2017-06-11 07:35 | HHI.CCPN ---
Subjective Remarks/Hospital Course 06/07: This is a 62-year-old male was brought in by EMS after cardiac arrest. The [facility] [place] [facility] had a syncopal episode. A bystander began chest compressions and an AED was located, the rhythm revealed Vfib and the patient was defibrillated 2. Upon EMS arrival the patient was intubated, the patient woke up and self extubated. The patient was transported to the ED for evaluation. Patient states that he has aching chest pain. The patient medical history is significant for CAD status post UT in 2007. Patient status post stent placement on dual antiplatelet therapy , aspirin 81 mg daily along with Plavix. Patient has history hypertension. Cardiology was consulted, Dr. Predomo, the patient was placed on a heparin infusion and the ED, critical care medicine was consulted for management. 06/08: Patient underwent cardiac catheterization by Dr. Perdomo last night which revealed 90% left main stenosis, 90% proximal LAD and 90% proximal circumflex stenosis. Patient on heparin and amiodarone drips. Cardiothoracic surgery consulted for evaluation for CABG. Patient is Resting in bed at the time of my evaluation. Denies any chest pain currently. IABP in place with 1: 1 augmentation 06/09: In bed comfortably. Occasional ectopy last night. IABP remains in place. Patient has been evaluated by CT surgery and is awaiting CABG. 06/10: Resting in bed comfortably. Denies any chest pain or shortness of breath. IABP in place. Awaiting CT surgery which is scheduled for tomorrow. 06/11: Denies any chest pain or shortness of breath. Awaiting CT surgery which has been postponed to 06/12. IABP remains in place Objective Vital Signs Date Time Temp Pulse Resp B/P (MAP) Pulse Ox O2 Delivery O2 Flow Rate FiO2 06/11/17 06:00 131/72 (109) 06/11/17 03:00 98.3 65 22 97 06/10/17 22:55 Nasal Cannula 2.00 Intake and Output 06/11/17 06/11/17 06/12/17 08:00 16:00 00:00 Intake Total 630 ml Output Total 450 ml Balance 180 ml Result Diagram: 06/10/17 0334 06/10/17 1219 Imaging Last Impressions Chest X-Ray 06/07/17 1338 Signed Impressions: Service Date/Time: Wednesday, June 07, 2017 15:29 - CONCLUSION: The lungs are clear. Willie Vasquez MD Objective Remarks HEENT/Neuro: No pallor or icterus, tongue moist, ELISSA, sleeping, awakens easily , nonfocal grossly, moving all 4 extremities Neck: No JVD Chest/pulmonary: CTA bilaterally Cardiovascular: S1-S2 regular no gallop or murmur GI/abdomen: Soft, nontender, bowel sounds present Extremities: Warm bilaterally, no edema. IABP in place via right groin, insertion site with no evidence of hematoma. A/P Assessment and Plan Assessment This is a 62-year-old morbidly obese male with a past medical history significant for coronary artery disease status post V. fib arrest, non-ST elevation UT status post cardiac catheterization with multivessel CAD involving left main, LAD, circumflex for which patient is being evaluated for CABG Plan Neurologic: Chest pain secondary to chest compressions Follow neuro status Tylenol when necessary Morphine 2 mg every 3 hours when necessary for breakthrough pain on scale of 7- 10 Respiratory: Maintain O2 sat greater than 92% O2 2 L nasal cannula Duo nebs every 4 hours when necessary for wheezing Cardiovascular: Angina/ non-ST elevation [place] Coronary artery disease Status post V. fib arrest Status post UT 2007 with stent placement Cardiology consulted -Dr. Perdomo. Cardiac catheterization revealed multivessel CAD involving left main, LAD, circumflex for which patient will require CABG, CT surgery consulted On Heparin infusion. Continue aspirin per cardiology. Continue amiodarone gtt. IABP in place. Awaiting CT surgery by Dr. Radha Nelson Renal: CHUY Place condom catheter -- Strict I/Os, monitor and replete electrolytes, follow BUN/creatinine. FEN/GI: Nausea Morbid obesity Electrolyte disturbances IV hydration Zofran every 4 hours when necessary for nausea PO diet as tolerated Famotidine GI prophylaxis Heme/ID: Monitor CBC Endocrine: Glucose monitoring per ICU protocol Obtain hemoglobin A1c -- SSI Prophylaxis: GI Prophylaxis Famotidine twice a day DVT Prophylaxis -- SCDs Heparin infusion Lines: Peripheral IVs providing adequate access Dispo: Awaiting CABG, CT surgery following. Yash Waterman MD Jun 11, 2017 07:35
[2017-06-11] MEDS: INSULIN ASPART SUPPLEMENTAL SCALE SQ SCH ×4 (08:00→21:00)
[2017-06-11] MEDS: AMIODARONE 200 MG TAB PO SCH ×2 (08:49→21:00)
[2017-06-11] MEDS: METOPROLOL TARTRATE 25 MG TAB PO SCH ×2 (08:49→21:00)
[2017-06-11] MEDS: DOCUSATE SODIUM 50 MG/SENNA 8.6 MG TAB PO SCH ×2 (08:49→21:00)
[2017-06-11] MEDS: amLODIPine BESYLATE 5 MG TAB PO SCH (08:49)
[2017-06-11] MEDS: MUPIROCIN 2% OINT 1 APPLIC/GM SYR EACH NARE SCH ×2 (08:50→21:00)
[2017-06-11] MEDS: SODIUM CHLORIDE 0.9% FLUSH 10 ML FLUSH IV FLUSH SCH ×4 (08:51→21:00)
--- NOTE | 2017-06-11 10:16 | RSPPFT ---
DATE OF PROCEDURE: 06/09/17 COMMENTS: Spirometry with FVC of 1.9, FEV1 of 1.4, FEV1/FVC ratio at 74%. Post-bronchodilator study was not performed. IMPRESSION: 1. Moderately severe airways obstruction.
--- NOTE | 2017-06-11 12:12 | PD.CAR.PN ---
CVT Progress Note Subjective/Hospital Course: 62-year-old male was apparently at the [place] [employer] car show at [facility] over the weekend. Admit date was 06/07/2017. The patient is visiting from the [facility] area. He was walking around the car show. Per the notes from Dr. Perdomo the patient apparently told somebody that he was not feeling well. They got him a chair and when he sat down he passed out. He was found to not have a pulse by an off duty EMS who started CPR. EMS was immediately there. He was found to be in ventricular fibrillation arrest. He was defibrillated twice and was intubated. They were able to get immediate ROSC ,. He subsequently was transferred to our facility where he underwent cardiac cath which showed left main disease of 90%. The LAD had a 90% stenosis in the ostial portion. The left circumflex had a 90% stenosis in the proximal portion. There was a stent in the midportion with a 50% in-stent restenosis. The right coronary artery was small and nondominant. An intra-aortic balloon pump was placed in the slab off mill tender by Dr. Perdomo for left main disease. PAST MEDICAL HISTORY : . Coronary artery disease with stenting of the RCA; he believes in 2007, Hypertension, Diabetes mellitus, History of prior [place], Hyperlipidemia, Tobacco abuse. 06/10 remains pain free, on Heparin gtt, BP elevated this am , IABP 1:2 BB increased, amiodarone changed to po, norvasc added PRU returned at 185/ from 198 / plt count 191> [address] and Dr Nelson aware , may need to re-schedule surgery 06/11 repeat PRU done, now 227 for surgery in am , on Heparin gtt, IABP 1:2 good augmentation , good distal pulses pain free Objective: GENERAL: SKIN: Warm and dry. HEAD: Normocephalic. EYES: No scleral icterus. No injection or drainage. NECK: Supple, trachea midline. No JVD or lymphadenopathy. CARDIOVASCULAR: Regular rate and rhythm without murmurs, gallops, or rubs. IABP right groin, + distal pulses RESPIRATORY: Breath sounds equal bilaterally. No accessory muscle use. GASTROINTESTINAL: Abdomen soft, non-tender, nondistended. MUSCULOSKELETAL: No cyanosis, or edema. BACK: Nontender without obvious deformity. No CVA tenderness. Vital Signs Date Time Temp Pulse Resp B/P (MAP) Pulse Ox O2 Delivery O2 Flow Rate FiO2 06/11/17 11:11 67 06/11/17 11:11 130/70 (106) 06/11/17 11:11 98.1 67 19 143/83 (103) 97 120/67 (84) 06/11/17 10:00 130/70 (106) 06/11/17 09:16 123/65 (106) 06/11/17 08:00 124/68 (111) 06/11/17 08:00 95 Nasal Cannula 2.00 06/11/17 07:00 120/67 (106) 06/11/17 07:00 98.4 66 19 156/85 (108) 97 120/67 (84) 06/11/17 07:00 67 06/11/17 06:00 131/72 (109) 06/11/17 05:00 132/66 (110) 06/11/17 04:00 138/72 (112) 06/11/17 03:00 98.3 65 22 147/76 (99) 97 135/68 (90) 06/11/17 03:00 65 06/11/17 03:00 135/68 (111) 06/11/17 02:00 139/69 (109) 06/11/17 01:00 135/68 (111) 06/11/17 00:00 130/66 (110) 06/10/17 23:00 61 06/10/17 23:00 97.9 61 18 130/66 (87) 97 132/68 (89) 06/10/17 23:00 134/70 (112) 06/10/17 22:55 95 Nasal Cannula 2.00 06/10/17 22:00 134/70 (114) 06/10/17 22:00 18 06/10/17 21:00 130/69 (115) 06/10/17 20:00 132/71 (111) 06/10/17 19:00 130/68 (109) 06/10/17 19:00 98.1 66 18 149/72 (97) 96 130/68 (88) 06/10/17 19:00 66 06/10/17 18:00 06/10/17 17:00 06/10/17 16:00 06/10/17 15:00 97.9 64 16 97 122/66 (84) 06/10/17 15:00 06/10/17 15:00 64 06/10/17 14:00 06/10/17 13:00 Labs: Laboratory Tests Test 06/11/17 04:24 Activated Partial Thromboplast Time 51.1 SEC (24.3-30.1) Platelet Function P2Y12 React Units 227 PRU (194-418) Result Diagram: 06/10/17 0334 06/10/17 1219 Telemetry: NSR (1) Ventricular fibrillation Plan: NSR, on po amiodarone/ no further arrhythmia (2) Cardiac arrest (3) CAD (coronary artery disease) Plan: on ASA, Heparin BB amiodarone PRU 185 >227 hold and reschedule surgery for thur (4) Left main coronary artery disease (5) Multi-vessel coronary artery stenosis (6) Elevated LFTs Plan: indices improving start statin if LFT normalized Leelee Farias Jun 11, 2017 12:12
[2017-06-11 12:21] LABS: AUTOMATED NEUTROPHIL # 4.9 TH/MM3 (1.8-7.7); BASOPHIL % 0.6 % (0.0-2.0); EOSINOPHIL # 0.3 TH/MM3 (0-0.4); EOSINOPHIL % 3.7 % (0.0-4.0); HEMATOCRIT 36.7 % (39.0-51.0); HEMO FLAGS DIFF FINAL; LYMPH % 13.7 % (9.0-44.0); MEAN CORPUSCULAR HEMOGLOBIN 32.4 PG (27.0-34.0); MEAN CORPUSCULAR HGB CONC 34.5 % (32.0-36.0); MONO % 11.8 % (0.0-8.0); NEUT % 70.2 % (16.0-70.0); PLATELET COUNT 110 TH/MM3 (150-450); RED CELL DISTRIBUTION WIDTH 12.7 % (11.6-17.2)
[2017-06-11 12:50] LABS: ANION GAP 6 MEQ/L (5-15); BICARBONATE 30.1 MEQ/L (21.0-32.0); BLOOD UREA NITROGEN 19 MG/DL (7-18); CHLORIDE 99 MEQ/L (98-107); GLOMERULAR FILTRATION RATE 106 ML/MIN (>89); POTASSIUM 4.1 MEQ/L (3.5-5.1); SODIUM (NA) 135 MEQ/L (136-145)
[2017-06-11 12:52] LABS: ALT (GPT) 94 U/L (12-78); AST (GOT) 62 U/L (15-37)
[2017-06-11 12:54] LABS: ALKALINE PHOSPHATASE 45 U/L (45-117); TOTAL BILIRUBIN ADULT 0.5 MG/DL (0.2-1.0)
--- NOTE | 2017-06-11 18:56 | PD.CARD.PN ---
Subjective Subjective Remarks No events overnight No further arrhythmias No chest pain Objective Medications Current Medications Medications (Trade) Dose Ordered Sig/Margaret Route Start Time Stop Time Status Last Admin Heparin Sodium/ Dextrose 250 ml @ 10 mls/hr TITRATE PRN IV 06/07/17 15:15 06/11/17 02:08 (NS Flush) 2 ml UNSCH PRN IV FLUSH 06/07/17 16:45 (NS Flush) 2 ml BID IV FLUSH 06/07/17 21:00 06/11/17 08:51 (Tylenol) 650 mg Q6H PRN PO 06/07/17 16:45 (Zofran Inj) 4 mg Q6H PRN IV PUSH 06/07/17 16:45 (Duoneb Neb) 1 ampule Q4HR NEB PRN INH 06/07/17 16:45 Miscellaneous Information 1 Q361D XX 06/07/17 16:45 (Chlorhexidine 2% Cloth) 3 pack Taper DAILY@04 TOP 06/08/17 04:00 06/04/18 03:59 06/11/17 04:00 (Chlorhexidine 2% Cloth) 3 pack UNSCH PRN TOP 06/07/17 16:45 (Basilia-Colace) 1 tab BID PO 06/07/17 21:00 06/11/17 08:49 (Milk Of Magnesia Liq) 30 ml Q12H PRN PO 06/07/17 16:45 (Senokot) 17.2 mg Q12H PRN PO 06/07/17 16:45 (Dulcolax Supp) 10 mg DAILY PRN RECTAL 06/07/17 16:45 (Lactulose Liq) 30 ml DAILY PRN PO 06/07/17 16:45 (D50w (Vial) Inj) 50 ml UNSCH PRN IV PUSH 06/07/17 16:45 (Glucagon Inj) 1 mg UNSCH PRN OTHER 06/07/17 16:45 (NovoLOG SUPPLEMENTAL SCALE) 1 ACHS SLIDING SCALE SQ 06/07/17 17:00 06/09/17 12:56 (Morphine Inj) 2 mg Q3H PRN IV PUSH 06/07/17 16:45 (Aspirin Chew) 81 mg DAILY CHEW 06/08/17 09:00 Future Hold 06/10/17 09:26 (Lopressor) 25 mg Q12HR PO 06/07/17:00 06/11/17 08:49 (Pepcid Inj) 20 mg Q12H IV PUSH 06/07/17 18:00 06/11/17 17:50 (Percocet 5-325 Mg) 1 tab Q4H PRN PO 06/07/17 19:30 06/10/17 20:58 (Percocet 5-325 Mg) 2 tab Q4H PRN PO 06/07/17 19:30 06/10/17 04:24 (NS Flush) 2 ml BID IV FLUSH 06/08/17 21:00 06/11/17 08:51 (NS Flush) 2 ml UNSCH PRN IV FLUSH 06/08/17 09:45 Papaverine HCl 60 mg/Nitroglycerin 100 mcg/Diltiazem HCl 100 mg/Sodium Chloride 100 ml @ 0 mls/hr NURSING TECH IRRIGATION 06/08/17 09:45 06/15/17 09:44 Cefazolin Sodium 500 mg/Sodium Chloride 505 ml @ 0 mls/hr NURSING TECH IRRIGATION 06/08/17 09:45 06/15/17 09:44 Cefazolin Sodium/ Dextrose 50 ml @ 150 mls/hr NURSING TECH IV 06/08/17 09:45 06/15/17 09:44 (Lopressor) 12.5 mg NURSING TECH PO 06/08/17 09:45 06/15/17 09:44 (Bactroban Nasal 2% Oint) 1 applic BID EACH NARE 06/08/17 21:00 06/13/17 20:59 06/11/17 08:50 (Hibiclens 4% Top Soln) 1 applic NURSING TECH TOPICAL 06/08/17 09:45 06/15/17 09:44 Insulin Human Regular 100 units/ Sodium Chloride 100 ml @ 3 mls/hr TITRATE PRN IV 06/08/17 09:45 06/15/17 09:44 (D50w (Vial) Inj) 50 ml UNSCH PRN IV PUSH 06/08/17 09:45 (Norvasc) 5 mg DAILY PO 06/10/17 09:00 06/11/17 08:49 (Apresoline Inj) 10 mg Q4H PRN IV PUSH 06/10/17 09:00 (Cordarone) 400 mg Q12HR PO 06/10/17 11:00 06/11/17 08:49 (Xanax) 0.25 mg Q8H PRN PO 06/10/17 18:45 06/11/17 02:03 Vital Signs / I&O Vital Signs Date Time Temp Pulse Resp B/P (MAP) Pulse Ox O2 Delivery O2 Flow Rate FiO2 06/11/17 18:00 158/78 (125) 06/11/17 17:00 151/75 (117) 06/11/17 16:00 153/80 (131) 06/11/17 15:28 62 06/11/17 15:28 98.3 62 19 168/73 (104) 97 138/70 (92) 06/11/17 15:28 138/70 (115) 06/11/17 14:15 146/77 (113) 06/11/17 13:00 135/72 (113) 06/11/17 12:00 144/88 (106) 06/11/17 11:11 67 06/11/17 11:11 130/70 (106) 06/11/17 11:11 98.1 67 19 143/83 (103) 97 120/67 (84) 06/11/17 10:00 130/70 (106) 06/11/17 09:16 123/65 (106) 06/11/17 08:00 124/68 (111) 06/11/17 08:00 95 Nasal Cannula 2.00 06/11/17 07:00 120/67 (106) 06/11/17 07:00 98.4 66 19 156/85 (108) 97 120/67 (84) 06/11/17 07:00 67 06/11/17 06:00 131/72 (109) 06/11/17 05:00 132/66 (110) 06/11/17 04:00 138/72 (112) 06/11/17 03:00 98.3 65 22 147/76 (99) 97 135/68 (90) 06/11/17 03:00 65 06/11/17 03:00 135/68 (111) 06/11/17 02:00 139/69 (109) 06/11/17 01:00 135/68 (111) 06/11/17 00:00 130/66 (110) 11/28/17 23:00 61 06/10/17 23:00 97.9 61 18 130/66 (87) 97 132/68 (89) 06/10/17 23:00 134/70 (112) 06/10/17 22:55 95 Nasal Cannula 2.00 06/10/17 22:00 134/70 (114) 06/10/17 22:00 18 06/10/17 21:00 130/69 (115) 06/10/17 20:00 132/71 (111) 06/10/17 19:00 130/68 (109) 06/10/17 19:00 98.1 66 18 149/72 (97) 96 130/68 (88) 06/10/17 19:00 66 I/O 06/10/17 06/10/17 06/10/17 06/11/17 06/11/17 06/11/17 07:00 15:00 23:00 07:00 15:00 23:00 Intake Total 976 ml 340.6 ml 480 ml 630 ml 700 ml Output Total 300 ml 500 ml 450 ml 1400 ml Balance 676 ml 340.6 ml -20 ml 180 ml -700 ml Intake Oral 660 ml 480 ml 630 ml 700 ml IV Total 316 ml 340.6 ml Output Urine Total 300 ml 500 ml 450 ml 1400 ml # Bowel Movements 0 0 0 0 Physical Exam GENERAL: NAD, AAOx3 (previously after yesterday's events was only x2) SKIN: Warm and dry. HEAD: Atraumatic. Normocephalic. EYES: Pupils equal and round. No scleral icterus. No injection or drainage. ENT: No nasal bleeding or discharge. Mucous membranes pink and moist. NECK: Trachea midline. No JVD. CARDIOVASCULAR: Regular rate and rhythm. RESPIRATORY: No accessory muscle use. Clear to auscultation. Breath sounds equal bilaterally. GASTROINTESTINAL: Abdomen soft, non-tender, nondistended. Hepatic and splenic margins not palpable. MUSCULOSKELETAL: Extremities without clubbing, cyanosis, or edema. No obvious deformities. Right groin with no hematoma/ecchymosis. IABP appears in place. Distal pulses palpable NEUROLOGICAL: Awake and alert. No obvious cranial nerve deficits. Motor grossly within normal limits. Five out of 5 muscle strength in the arms and legs. Normal speech. PSYCHIATRIC: Appropriate mood and affect; insight and judgment normal. Laboratory Laboratory Tests Test 06/11/17 04:24 06/11/17 11:05 Activated Partial Thromboplast Time 51.1 SEC Platelet Function P2Y12 React Units 227 PRU White Blood Count 7.0 TH/MM3 Red Blood Count 3.90 MIL/MM3 Hemoglobin 12.6 GM/DL Hematocrit 36.7 % Mean Corpuscular Volume 94.0 FL Mean Corpuscular Hemoglobin 32.4 PG Mean Corpuscular Hemoglobin Concent 34.5 % Red Cell Distribution Width 12.7 % Platelet Count 110 TH/MM3 Mean Platelet Volume 9.7 FL Neutrophils (%) (Auto) 70.2 % Lymphocytes (%) (Auto) 13.7 % Monocytes (%) (Auto) 11.8 % Eosinophils (%) (Auto) 3.7 % Basophils (%) (Auto) 0.6 % Neutrophils # (Auto) 4.9 TH/MM3 Lymphocytes # (Auto) 1.0 TH/MM3 Monocytes # (Auto) 0.8 TH/MM3 Eosinophils # (Auto) 0.3 TH/MM3 Basophils # (Auto) 0.0 TH/MM3 CBC Comment DIFF FINAL Differential Comment Blood Urea Nitrogen 19 MG/DL Creatinine 0.75 MG/DL Random Glucose 112 MG/DL Total Protein 6.9 GM/DL Albumin 3.0 GM/DL Calcium Level 8.6 MG/DL Alkaline Phosphatase 45 U/L Aspartate Amino Transf (AST/SGOT) 62 U/L Alanine Aminotransferase (ALT/SGPT) 94 U/L Total Bilirubin 0.5 MG/DL Sodium Level 135 MEQ/L Potassium Level 4.1 MEQ/L Chloride Level 99 MEQ/L Carbon Dioxide Level 30.1 MEQ/L Anion Gap 6 MEQ/L Estimat Glomerular Filtration Rate 106 ML/MIN Assessment and Plan Problem List: (1) Ventricular fibrillation ICD Codes: I49.01 - Ventricular fibrillation Status: Acute (2) Cardiac arrest ICD Codes: I46.9 - Cardiac arrest, cause unspecified Status: Acute (3) CAD (coronary artery disease) ICD Codes: I25.10 - Atherosclerotic heart disease of [place] coronary artery without angina pectoris (4) Left main coronary artery disease ICD Codes: I25.10 - Atherosclerotic heart disease of [place] coronary artery without angina pectoris (5) Multi-vessel coronary artery stenosis ICD Codes: I25.10 - Atherosclerotic heart disease of [place] coronary artery without angina pectoris (6) Elevated LFTs ICD Codes: R79.89 - Other specified abnormal findings of blood chemistry Assessment and Plan 1) V. Fib arrest Secondary to ischemia Started on Amiodarone drip, changed to PO 2) NSTEMI/CAD Significant CAD with LM/LAD/LCx disease Plan for CABG once able to with recent Plavix dose (last taken 06/07/17) Discussed with Dr. Nelson IABP placed Con't heparin drip Assess distal pulses frequently Changed to 1:2 PRU increased so will plan for surgery tomorrow 3) EF 40%, trace to mild Casper Cam DO Jun 11, 2017 18:56
[2017-06-12] VITALS (12 sets, daily range): BP systolic 109–161; BP diastolic 56–82; PULSE 62–89; RESP 15–20; TEMP 98.5–100.2; O2SAT 93–100
[2017-06-12 05:55] LABS: AUTOMATED NEUTROPHIL # 5.6 TH/MM3 (1.8-7.7); BASOPHIL % 0.2 % (0.0-2.0); EOSINOPHIL # 0.2 TH/MM3 (0-0.4); HEMO FLAGS DIFF FINAL; LYMPH % 11.7 % (9.0-44.0); LYMPHOCYTE # 0.9 TH/MM3 (1.0-4.8); MEAN CELL VOLUME 93.8 FL (80.0-100.0); MEAN CORPUSCULAR HEMOGLOBIN 32.9 PG (27.0-34.0); MEAN CORPUSCULAR HGB CONC 35.1 % (32.0-36.0); MONO % 9.7 % (0.0-8.0); NEUT % 76.4 % (16.0-70.0); PLATELET COUNT 114 TH/MM3 (150-450); RED BLOOD COUNT 3.84 MIL/MM3 (4.50-5.90); RED CELL DISTRIBUTION WIDTH 12.7 % (11.6-17.2); WHITE BLOOD COUNT 7.4 TH/MM3 (4.0-11.0)
[2017-06-12] MEDS: FAMOTIDINE 20 MG/2 ML VIAL IV PUSH SCH ×2 (06:00→18:00)
[2017-06-12 06:05] LABS: APTT (PATIENT) 41.1 SEC (24.3-30.1)
[2017-06-12 06:26] LABS: ANION GAP 8 MEQ/L (5-15); AST (GOT) 51 U/L (15-37); BICARBONATE 30.6 MEQ/L (21.0-32.0); BLOOD UREA NITROGEN 24 MG/DL (7-18); CHLORIDE 98 MEQ/L (98-107); GLOMERULAR FILTRATION RATE 86 ML/MIN (>89); POTASSIUM 4.3 MEQ/L (3.5-5.1); SODIUM (NA) 137 MEQ/L (136-145)
[2017-06-12 06:28] LABS: ALT (GPT) 87 U/L (12-78)
[2017-06-12 06:30] LABS: ALKALINE PHOSPHATASE 48 U/L (45-117); TOTAL BILIRUBIN ADULT 0.4 MG/DL (0.2-1.0)
[2017-06-12] MEDS ORDERED: VANCOMYCIN HCL 1000 MG VIAL ONE ×2 (06:48)
[2017-06-12] MEDS ORDERED: HEPARIN SODIUM - SQ 10,000 UNITS/ML VIAL ONE (06:48)
[2017-06-12] MEDS ORDERED: ACETAMINOPHEN 1000 MG/100 ML 100 ML IV ONE (06:51)
[2017-06-12] MEDS ORDERED: DEXMEDETOMIDINE HCL 200 MCG/2 ML VIAL ONE (06:52)
--- NOTE | 2017-06-12 06:56 | HHI.CCPN ---
Subjective Remarks/Hospital Course 06/07: This is a 62-year-old male was brought in by EMS after cardiac arrest. The patient is from [place] and was at the [facility] walking around when he had a syncopal episode. A bystander began chest compressions and an AED was located, the rhythm revealed Vfib and the patient was defibrillated 2. Upon EMS arrival the patient was intubated, the patient woke up and self extubated. The patient was transported to the ED for evaluation. Patient states that he has aching chest pain. The patient medical history is significant for CAD status post [place] in 2007. Patient status post stent placement on dual antiplatelet therapy , aspirin 81 mg daily along with Plavix. Patient has history hypertension. Cardiology was consulted, Dr. Perdomo, the patient was placed on a heparin infusion and the ED, critical care medicine was consulted for management. 06/08: Patient underwent cardiac catheterization by Dr. Perdomo last night which revealed 90% left main stenosis, 90% proximal LAD and 90% proximal circumflex stenosis. Patient on heparin and amiodarone drips. Cardiothoracic surgery consulted for evaluation for CABG. Patient is Resting in bed at the time of my evaluation. Denies any chest pain currently. IABP in place with 1: 1 augmentation 06/09: In bed comfortably. Occasional ectopy last night. IABP remains in place. Patient has been evaluated by CT surgery and is awaiting CABG. 06/10: Resting in bed comfortably. Denies any chest pain or shortness of breath. IABP in place. Awaiting CT surgery which is scheduled for tomorrow. 06/11: Denies any chest pain or shortness of breath. Awaiting CT surgery which has been postponed to 06/12. IABP remains in place 06/12: Resting in bed comfortably. Denies any chest pain or shortness of breath. Awaiting CT surgery. IABP remains in place. Objective Vital Signs Date Time Temp Pulse Resp B/P (MAP) Pulse Ox O2 Delivery O2 Flow Rate FiO2 06/12/17 04:00 66 06/12/17 04:00 98.7 18 96 140/68 (92) 06/11/17 22:25 Nasal Cannula 2.00 Intake and Output 06/12/17 06/12/17 06/12/17 07:59 15:59 23:59 Intake Total 518 ml Output Total 800 ml Balance -282 ml Result Diagram: 06/12/17 0500 06/12/17 0500 Imaging Last Impressions Chest X-Ray 06/07/17 1338 Signed Impressions: Service Date/Time: Wednesday, June 07, 2017 15:29 - CONCLUSION: The lungs are clear. Willie Vasquez MD Objective Remarks HEENT/Neuro: No pallor or icterus, tongue moist, ELISSA, sleeping, awakens easily , nonfocal grossly, moving all 4 extremities Neck: No JVD Chest/pulmonary: CTA bilaterally Cardiovascular: S1-S2 regular no gallop or murmur GI/abdomen: Soft, nontender, bowel sounds present Extremities: Warm bilaterally, no edema. IABP in place via right groin, insertion site with no evidence of hematoma. A/P Assessment and Plan Assessment This is a 62-year-old morbidly obese male with a past medical history significant for coronary artery disease status post V. fib arrest, non-ST elevation [place] status post cardiac catheterization with multivessel CAD involving left main, LAD, circumflex for which patient is being evaluated for CABG Plan Neurologic: Chest pain secondary to chest compressions Follow neuro status Tylenol when necessary Morphine 2 mg every 3 hours when necessary for breakthrough pain on scale of 7- 10 Respiratory: Maintain O2 sat greater than 92% O2 2 L nasal cannula Duo nebs every 4 hours when necessary for wheezing Cardiovascular: Angina/ non-ST elevation [place] Coronary artery disease Status post V. fib arrest Status post NJ 2007 with stent placement Cardiology consulted -Dr. Perdomo. Cardiac catheterization revealed multivessel CAD involving left main, LAD, circumflex for which patient will require CABG, CT surgery consulted On Heparin infusion. Continue aspirin per cardiology. Off amiodarone gtt since 06/[address] surgery by Dr. Radha Nelson Renal: CHUY condom catheter -- Strict I/Os, monitor and replete electrolytes, follow BUN/creatinine. FEN/GI: Nausea Morbid obesity Electrolyte disturbances IV hydration Zofran every 4 hours when necessary for nausea PO diet as tolerated Famotidine GI prophylaxis Heme/ID: Thrombocytopenia Monitor CBC Endocrine: Glucose monitoring per ICU protocol Obtain hemoglobin A1c -- SSI Prophylaxis: GI Prophylaxis Famotidine twice a day DVT Prophylaxis -- SCDs Heparin infusion Lines: Peripheral IVs providing adequate access Dispo: Awaiting CABG, CT surgery following. Yash Waterman MD 30, 2017 06:56
[2017-06-12] MEDS ORDERED: VANCOMYCIN INJ 1,000 MG in SODIUM CHLORIDE 0.9% IRR BTL 1,000 ML IRRIGATION SCH (07:30)
[2017-06-12] MEDS: INSULIN ASPART SUPPLEMENTAL SCALE SQ SCH (08:00)
[2017-06-12] MEDS ORDERED: VANCOMYCIN INJ 1,000 MG in SODIUM CHLORIDE 0.9% IRR BTL 1,000 ML IRRIGATION ONE (08:30)
[2017-06-12] MEDS: DOCUSATE SODIUM 50 MG/SENNA 8.6 MG TAB PO SCH ×2 (09:00→20:45)
[2017-06-12] MEDS: MUPIROCIN 2% OINT 1 APPLIC/GM SYR EACH NARE SCH ×2 (09:00→20:46)
[2017-06-12] MEDS: SODIUM CHLORIDE 0.9% FLUSH 10 ML FLUSH IV FLUSH SCH ×3 (09:00→20:46)
[2017-06-12] MEDS: AMIODARONE 200 MG TAB PO SCH ×2 (09:00→20:46)
[2017-06-12] MEDS: amLODIPine BESYLATE 5 MG TAB PO SCH (09:00)
[2017-06-12] MEDS: METOPROLOL TARTRATE 25 MG TAB PO SCH ×2 (09:00→20:45)
[2017-06-12] MEDS ORDERED: DOBUTamine PREMIX DRIP 250 ML IV SCH (12:27)
[2017-06-12] MEDS ORDERED: LACTATED RINGER'S 1000 ML INJ 500 ML IV PRN (12:27)
[2017-06-12] MEDS ORDERED: RESP: ALBUTEROL 2.5 MG/IPRATROPIUM 0.5 MG NEB (PRN) NEB (12:30)
[2017-06-12] MEDS ORDERED: PHENYLEPHRINE INJ 40 MG in DEXTROSE 5% IN WATE 500 ML INJ 496 ML IV PRN ×2 (12:30)
[2017-06-12] MEDS ORDERED: ACETAMINOPHEN 325 MG TAB PO PRN (12:30)
[2017-06-12] MEDS ORDERED: SODIUM BICARBONATE 8.4% SOLN 50 MEQ/50 ML VIAL IV PUSH PRN ×2 (12:30)
[2017-06-12] MEDS ORDERED: DEXMEDETOMIDINE INJ 200 MCG in SODIUM CHLORIDE 0.9% INJ 50 ML IV PRN (12:30)
[2017-06-12] MEDS ORDERED: RESP: RACEPINEPHRINE 2.25% 0.5 ML NEB NEB PRN (12:30)
[2017-06-12] MEDS ORDERED: ALBUMIN 5% INJ 250 ML IV PRN (12:30)
[2017-06-12] MEDS ORDERED: MAGNESIUM SULFATE INJ 2 GM in SODIUM CHLORIDE 0.9% INJ 100 ML IV PRN ×4 (12:30)
[2017-06-12] MEDS ORDERED: MEPERIDINE HCL 25 MG/ML VIAL IV PUSH PRN (12:30)
[2017-06-12] MEDS ORDERED: POTASSIUM CHLORIDE 20 MEQ CONTROLLED RELEASE TAB PO PRN ×2 (12:30)
[2017-06-12] MEDS ORDERED: INSULIN REGULAR (IV INFUSION) 100 UNITS in SODIUM CHLORIDE 0.9% INJ 99 ML IV PRN (12:30)
[2017-06-12] MEDS ORDERED: MORPHINE SULFATE 4 MG/ML INJ IV PUSH PRN (12:30)
[2017-06-12] MEDS ORDERED: DOPamine INJ PREMIX 500 ML IV PRN (12:30)
[2017-06-12] MEDS ORDERED: SODIUM CHLORIDE 0.9% FLUSH 10 ML FLUSH IV FLUSH PRN (12:30)
[2017-06-12] MEDS ORDERED: CLEVIDIPINE INJ 50 ML IV PRN (12:30)
[2017-06-12] MEDS ORDERED: CALCIUM CHLORIDE INJ 1 GM in SODIUM CHLORIDE 0.9% INJ 100 ML IV PRN (12:30)
[2017-06-12] MEDS ORDERED: METOPROLOL TARTRATE 5 MG/5 ML VIAL IV PUSH PRN (12:30)
[2017-06-12] MEDS ORDERED: hydrALAZINE HCL 20 MG/ML VIAL IV PUSH PRN (12:30)
[2017-06-12] MEDS ORDERED: KETOROLAC TROMETHAMINE 30 MG/ML (IVP) VIAL IV PUSH PRN (12:30)
[2017-06-12] MEDS ORDERED: CALCIUM CHLORIDE 10% 1 GRAM/10 ML VIAL IV PUSH PRN (12:30)
[2017-06-12] MEDS ORDERED: ACETAMINOPHEN 650 MG SUPP RECTAL PRN (12:30)
[2017-06-12] MEDS ORDERED: POTASSIUM CHLOR 20 MEQ PREMIX 100 ML IV PRN ×3 (12:30)
[2017-06-12] MEDS ORDERED: ONDANSETRON HCL 4 MG/2 ML VIAL IV PUSH PRN (12:30)
[2017-06-12] MEDS ORDERED: DEXTROSE 50% IN WATER 50 ML VIAL(D50) IV PUSH PRN (12:30)
[2017-06-12] MEDS ORDERED: NITROGLYCERIN-D5W 50 MG/250 ML 250 ML IV PRN (12:30)
[2017-06-12] MEDS ORDERED: Post-op Orders (for Pharmacy) MISC OTHER ONE (12:30)
--- NOTE | 2017-06-12 12:37 | PD.OP ---
cc: Mariah Nelson MD; Casper Perdomo DO Operative Report Date of Surgery: Jun 12, 2017 Preoperative Diagnosis: Postoperative Diagnosis: Procedure: 1. Urgent Off-pump Coronary Artery Bypass Grafting x 2 with Left Internal Mammary Artery (SALES) to the Left Anterior Descending (LAD), reverse saphenous vein graft to the Obtuse Marginal 2 (OM2) 2. Left Leg Vein Barnum 3. Intraoperative Vein Mapping Surgeon: Mariah Nelson Polymer Engineer(s): Negrita Salazar Operation and Findings: PREPROCEDURE DIAGNOSES 1. Severe Multi-Vessel Coronary Artery Disease. 2 Left Main Disease 3. Mild Left Ventricular Dysfunction 4. Acute Myocardial Infarction 5. Ventricular Fibrillation Cardiac Arrest 6. IABP Circulatory Support POSTPROCEDURE DIAGNOSES Same SURGICAL PROCEDURE 1. Urgent Off-pump Coronary Artery Bypass Grafting x 2 with Left Internal Mammary Artery (SALES) to the Left Anterior Descending (LAD), reverse saphenous vein graft to the Obtuse Marginal 2 (OM2) 2. Left Leg Vein Barnum 3. Intraoperative Vein Mapping SURGEON Mariah Nelson MD PERSONNEL RESEARCH PSYCHOLOGIST FABIAN Solano PA-C ANESTHESIA General endotracheal LOBBY CONCIERGE Yaquelin Dye, PB Alcaraz MD PREPARATION ChloraPrep. COUNTS Needle, sponge, and instrument counts were correct. DRAINS Two 32-I[place] mediastinal tubes. COMPLICATIONS None. INDICATIONS FOR PROCEDURE The patient is a 62-year-old presenting with v-fib cardiac arrest x 2 and left main coronary artery disease. He is being brought to the operating room for surgical revascularization therapy. PROCEDURE Patient was brought to the operating room and placed supine on the OR table. Following the induction of adequate general endotracheal anesthesia and placement of appropriate monitoring devices, intraoperative vein mapping was performed which revealed suitable-caliber conduit in both legs. The patient was then prepped and draped in standard sterile fashion. Next, 2500 units of intravenous heparin was given. The left greater saphenous vein was harvested from the thich endoscopically initially but had to convert to skipped incision harvest due to complexity of its course. This appeared to be a useable-caliber conduit. Simultaneously, a median sternotomy was performed and the left internal mammary artery dissected free off the posterior sternal table. Of note , he had a lower sternal fracture from his preoperative resuscitation. The patient was systemically heparinized and anticoagulation monitored by serial ACT measurements. The internal mammary artery had good pulsatile flow in it and was a decent-caliber conduit. The pericardium was then divided in the midline, the cradle created and targets analyzed. At this point, all anastomoses were performed in a beating-heart fashion using the MaqueSterecycle stabilizing system. The left internal mammary artery was anastomosed to the mid LAD (2 mm) in an end-to-side fashion using 7-0 Prolene. The next segment was anastomosed to the OM2 (2 mm) in an end-to-side fashion using a running 7-0 Prolene. The IABP was paused and the proximal anastomosis was then constructed to the ascending aorta in a running manner using 6-0 Prolene after which the IABP counter-pulsation was resumed. All anastomotic sites were inspected and appeared to be hemostatic and patent. Protamine solution was given. Strict hemostasis was assured. The closure was undertaken. 2 chest tubes were placed. The pericardium was reapproximated in the midline. The sternum was approximated using sternal wires. The muscular and fascial layer were then closed in 3 layers. The endoscopic vein harvest site was closed in 2 layers. The patient tolerated the procedure well and was transferred to CVICU in stable condition. Mariah Nelson MD Jun 12, 2017 12:37
[2017-06-12] MEDS: ACETAMINOPHEN 1000 MG/100 ML 100 ML IV SCH ×2 (14:33→18:13)
--- NOTE | 2017-06-12 14:33 | RADRPT ---
EXAM DATE/TIME: 06/12/2017 13:41 [place] COMPARISON: CHEST SINGLE AP, June 09, 2017, 3:29. INDICATIONS : Post op open heart surgery. MEDICAL HISTORY : Myocardial infarction. Hypercholesterolemia. Hypertension. Headache. Anticoagulant therapy. 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 Dyspnea. Arthritis. SURGICAL HISTORY : Coronary artery stent. Cardiac catheterization. Back surgery. Right big toe surgery. ENCOUNTER: Initial ACUITY: 1 day PAIN SCORE: Non-responsive. LOCATION: Bilateral chest FINDINGS: The heart is normal in size. The patient is post median sternotomy. There is a chest tube, a mediasti nal drain and an endotracheal tube present. All appear in good position there is no pneumothorax. CONCLUSION: 1. Support equipment is in good position. There is no pneumothorax. Stable postoperative chest. Gabino Benitez MD on June 12, 2017 at 14:29 Board Certified Radiologist. This report was verified electronically.
--- NOTE | 2017-06-12 15:51 | HHI.FF ---
Face to Face Verification Diagnosis: (1) S/P CABG x 2 (2) Cardiac arrest (3) Ventricular fibrillation (4) CAD (coronary artery disease) (5) Left main coronary artery disease (6) Multi-vessel coronary artery stenosis (7) Elevated LFTs Home Health Nursing Order: Signs/symptoms of disease process Medication education-adverse effect Wound care and dressing changes Nursing assessment with vital signs Instructions: Heart and Vascular Surgery patients *Special attention to sternal dressing Mandatory frequency Assess and evaluation, 4 days in a row The next week 3X week 2 times a week for 4 weeks 1 time a week for 5 weeks Schedule Heart and Vascular patients for full 60 day certification period Initial visit Review Open Heart Surgery Discharge Instructions (Sternal precautions, Activity, Elastic hose, Incision care, Driving, Incentive spirometry, Smoking, [place], Work and other) Need Betadine to paint incision Medication reconciliation Importance of follow up care/ check on appointments Make calendar record temperature daily When to call [facility] at Home nurse, review instructions, phone list Incentive Spirometry, demonstration Visit 1- Begin discharge instruction for patient family and/ or caregiver using teach back method- Signs and symptoms of infection Disease characteristics Medicines and side effects Foods and nutrition/ appetite Infection control/ hand washing/ hygiene Visit 2- Continue teaching Discharge instructions- include additional information on smoking cessation , sternal dressing (sternal vac) Visit 3- Continue teaching- Cough and deep breathing, incision monitoring. Choose my plate Visit 4- Continue teaching- Discuss limitations Discuss how they are feeling Discuss progress toward goals Remaining visits- continue teaching and monitoring PREVENA Single Use Negative Wound Therapy System Caregiver Instruction Sheet 1. A Prevena dressing system was applied to the chest incision during surgery , to promote wound healing. It works via a suction device (negative pressure wound therapy) to remove low to moderate levels of exudate (drainage) and infectious materials. We recommend that the device stay in place for up to seven days, from day of surgery. 2. Day of Surgery___06/12/17 Day of Removal ____06/19/17 3. The dressing should only be removed by a health director long term care. Please arrange removal of device to coincide with Home Health visit and or with Nursing staff at Rehab 4. If skin reddening or irritation of skin occurs, or excessive drainage, please notify the Cardiovascular Surgeons office at [phone]. 5. Light showering is permissible; however the pump should be disconnected and placed in safe location, where it will not get wet. The dressing should not be exposed to direct spray or submerged in water. No bath tub / shower only. Ensure the end of the tubing attached to the dressing is facing down so that water does not enter the top of the tube. 6. To remove Prevena dressing: press purple button to turn off device / remove the suction. Then disconnect the tubing from the pump. The fixation strips should be stretched away from the skin and the dressing lifted at one corner and peeled back until it has been fully removed. 7. After removal, it is ok to shower daily using liquid dial soap and clean wash cloth, rinse and pat dry, and leave incision open to air dry. For any concerns regarding Prevena dressing, and or wounds, please contact Loretta Vera, patient navigator at [phone] or notify the Cardiovascular Surgeons office at [phone]. Incentive spirometry Q1 hr x 10, while awake, also use acapella device hourly whole awake Sternal Breast Bone Precautions: NO pushing or pulling, ( pt must use sternal pillow to support chest with all activities and with coughing ( takes up to 3 months breast bone to heal ) Daily incision care: ok to shower daily, no tub bath. Wash all incisions with liquid dial soap, clean wash cloth to each site, rinse and pat dry. Observe for any signs of infection, such as drainage which is dark yellow, nguyen, green or foul smelling. Immediately report to the surgeon any drainage from the chest incision, or legs, and for any abnormal drainage from the chest tube sites. Notify surgeon if any temp >101.5 degrees F. When specialty dressing removed/ or if you do not have one, continue to shower daily as above, then rinse and pat incision dry and paint with betadine daily x 5 days. Allow steri strips to fall off if you have any. Avoid lotions, creams, salves, oils, etc. for the first month Please see attached forms for additional instructions regarding post Open Heart specialty wound vacuum dressings. MACKENZIE or Prevena , Dressing to be removed by Nursing staff on __06/19/____ F/U appointment: as per DC instructions: PCP in 2 weeks, CV surgeon 2 weeks, Medical Technologist Clinical 3-4 weeks For any questions regarding incisions/ dressing / meds / post op care or above Symptoms, Friday 8am-5pm Heart & Vascular Surgery Office ( Dr. Nelson & Dr. Gary), After Hours / Nights (5pm -8am) Weekends and Holidays Please call [facility] Cardiac Intermediate Care Unit (CIC) Charge Nurse I have seen patient Nathaniel Villa on 06/12/17. My clinical findings support the need for the requested home health care services because: Deconditioned w/ increased weakness I certify that my clinical findings support that this patient is homebound because: Post-op weakness Leelee Farias Jun 12, 2017 15:51
[2017-06-12] MEDS: RESP: ALBUTEROL 2.5 MG/IPRATROPIUM 0.5 MG NEB (SCH) NEB ×2 (18:26→21:25)
[2017-06-12] MEDS: VANCOMYCIN INJ 1,750 MG in SODIUM CHLORID 0.9% 500 ML INJ 500 ML IV SCH (20:45)
--- NOTE | 2017-06-12 21:24 | PD.CARD.PN ---
Subjective Subjective Remarks Post-CABG Extubated Feels well, appropriate sternal pain Objective Medications Current Medications Medications (Trade) Dose Ordered Sig/Margaret Route Start Time Stop Time Status Last Admin Heparin Sodium/ Dextrose 250 ml @ 10 mls/hr TITRATE PRN IV 06/07/17 15:15 06/11/17 21:45 (Duoneb Neb) 1 ampule Q4HR NEB PRN INH 06/07/17 16:45 Miscellaneous Information 1 Q361D XX 06/07/17 16:45 (Chlorhexidine 2% Cloth) 3 pack Taper DAILY@04 TOP 06/08/17 04:00 06/04/18 03:59 06/11/17 23:58 (Chlorhexidine 2% Cloth) 3 pack UNSCH PRN TOP 06/07/17 16:45 (Basilia-Colace) 1 tab BID PO 06/07/17 21:00 06/12/17 20:45 (Milk Of Magnesia Liq) 30 ml Q12H PRN PO 06/07/17 16:45 (Senokot) 17.2 mg Q12H PRN PO 06/07/17 16:45 (Dulcolax Supp) 10 mg DAILY PRN RECTAL 06/07/17 16:45 (Lactulose Liq) 30 ml DAILY PRN PO 06/07/17 16:45 (Lopressor) 25 mg Q12HR PO 06/07/17 21:00 06/12/17 20:45 (Pepcid Inj) 20 mg Q12H IV PUSH 06/07/17 18:00 06/11/17 17:50 Papaverine HCl 60 mg/Nitroglycerin 100 mcg/Diltiazem HCl 100 mg/Sodium Chloride 100 ml @ 0 mls/hr ALUMINUM SIDING INSTALLER IRRIGATION 06/08/17 09:45 06/15/17 09:44 06/12/17 09:28 Cefazolin Sodium 500 mg/Sodium Chloride 505 ml @ 0 mls/hr ALUMINUM SIDING INSTALLER IRRIGATION 06/08/17 09:45 06/15/17 09:44 Cefazolin Sodium/ Dextrose 50 ml @ 150 mls/hr ALUMINUM SIDING INSTALLER IV 06/08/17 09:45 06/15/17 09:44 (Lopressor) 12.5 mg ALUMINUM SIDING INSTALLER PO 06/08/17 09:45 06/15/17 09:44 (Bactroban Nasal 2% Oint) 1 applic BID EACH NARE 06/08/17 21:00 06/13/17 20:59 06/11/17 21:00 (Hibiclens 4% Top Soln) 1 applic ALUMINUM SIDING INSTALLER TOPICAL 06/08/17 09:45 06/15/17 09:44 06/11/17 23:59 (Norvasc) 5 mg DAILY PO 06/10/17 09:00 06/11/17 08:49 (Xanax) 0.25 mg Q8H PRN PO 06/10/17 18:45 06/11/17 02:03 Vancomycin HCl 1000 mg/Sodium Chloride 1,000 ml @ 0 mls/hr UNSCH IRRIGATION 06/12/17 07:30 06/16/17 07:29 (NS Flush) 2 ml BID IV FLUSH 06/12/17 21:00 06/12/17 20:46 (NS Flush) 2 ml UNSCH PRN IV FLUSH 06/12/17 12:30 Dexmedetomidine HCl 200 mcg/ Sodium Chloride 52 ml @ 6.16 mls/hr TITRATE PRN IV 06/12/17 12:30 Nitroglycerin/ Dextrose 250 ml @ 1.5 mls/hr TITRATE PRN IV 06/12/17 12:30 Dobutamine HCl/ Dextrose 250 ml @ 17.775 mls/ hr Q14H4M IV 06/12/17 12:27 Dopamine HCl/ Dextrose 500 ml @ 13.331 mls/ hr TITRATE PRN IV 06/12/17 12:30 Phenylephrine HCl 40 mg/Dextrose 500 ml @ 30 mls/hr TITRATE PRN IV 06/12/17 12:30 Clevidipine 50 ml @ 2 mls/hr TITRATE PRN IV 06/12/17 12:30 Albumin Human 250 ml @ 250 mls/hr UNSCH PRN IV 06/12/17 12:30 06/12/17 14:06 Lactated Ringer's 500 ml @ 500 mls/hr Q1H PRN IV 06/12/17 12:27 Vancomycin HCl 1750 mg/Sodium Chloride 500 ml @ 250 mls/hr Q12H IV 06/12/17 20:00 06/13/17 21:59 06/12/17 20:45 (Aspirin Chew) 81 mg DAILY PO 06/13/17 09:00 (Plavix) 75 mg DAILY PO 06/13/17 09:00 (Protonix) 40 mg DAILY@06 PO 06/13/17 06:00 (Cordarone) 400 mg Q12HR PO 06/12/17 21:00 06/12/17 20:46 Multivitamins 10 ml/Thiamine HCl 500 mg/Folic Acid 1 mg/Sodium Chloride 515.2 ml @ 21 mls/hr Q24H IV 06/13/17 09:00 (Tylenol) 650 mg Q4H PRN PO 06/12/17 12:30 (Tylenol Supp) 650 mg Q4H PRN RECTAL 06/12/17 12:30 Acetaminophen 100 ml @ 400 mls/hr Q6H IV 06/12/17 13:00 06/13/17 07:14 06/12/17 18:13 (Morphine Inj) 1 mg Q10M PRN IV PUSH 06/12/17 12:30 (Demerol Inj) 12.5 mg Q4H PRN IV PUSH 06/12/17 12:30 (Percocet 5-325 Mg) 1 tab Q3H PRN PO 06/12/17 12:30 (Toradol Inj) 15 mg Q6H PRN IV PUSH 06/12/17 12:30 06/14/17 12:29 (fentaNYL INJ) 25 mcg Q1H PRN IV PUSH 06/12/17 12:30 06/12/17 18:01 (Zofran Inj) 4 mg Q6H PRN IV PUSH 06/12/17 12:30 (Apresoline Inj) 10 mg Q4H PRN IV PUSH 06/12/17 12:30 (Lopressor Inj) 2.5 mg Q1H PRN IV PUSH 06/12/17 12:30 Potassium Chloride 100 ml @ 50 mls/hr UNSCH PRN IV 06/12/17 12:30 Potassium Chloride 100 ml @ 50 mls/hr UNSCH PRN IV 06/12/17 12:30 Potassium Chloride 100 ml @ 50 mls/hr UNSCH PRN IV 06/12/17 12:30 (KCl) 20 meq UNSCH PRN PO 06/12/17 12:30 (KCl) 40 meq UNSCH PRN PO 06/12/17 12:30 Magnesium Sulfate 2 gm/Sodium Chloride 104 ml @ 100 mls/hr UNSCH PRN IV 06/12/17 12:30 Magnesium Sulfate 2 gm/Sodium Chloride 104 ml @ 50 mls/hr UNSCH PRN IV 06/12/17 12:30 (Calcium Chloride Inj) 0.5 gm UNSCH PRN IV PUSH 06/12/17 12:30 Insulin Human Regular 100 units/ Sodium Chloride 100 ml @ 3 mls/hr TITRATE PRN IV 06/12/17 12:30 (D50w (Vial) Inj) 50 ml UNSCH PRN IV PUSH 06/12/17 12:30 (Sodium Bicarbonate 8.4% Inj) 50 meq UNSCH PRN IV PUSH 06/12/17 12:30 (Sodium Bicarbonate 8.4% Inj) 100 meq UNSCH PRN IV PUSH 06/12/17 12:30 (Duoneb Neb) 1 ampule Q6HR NEB NEB 06/12/17 16:00 06/12/17 18:26 (Duoneb Neb) 1 ampule Q2HR NEB PRN NEB 06/12/17 12:30 (Racepinephrine 2.25% Neb) 0.5 ml UNSCH X1 PRN NEB 06/12/17 12:30 06/14/17 12:29 Vital Signs / I&O Vital Signs Date Time Temp Pulse Resp B/P (MAP) Pulse Ox O2 Delivery O2 Flow Rate FiO2 06/12/17 20:01 98 Nasal Cannula 2.00 06/12/17 19:51 100 Nasal Cannula 4.00 06/12/17 19:45 93 Nasal Cannula 3.00 06/12/17 18:27 97 Nasal Cannula 3.00 06/12/17 16:00 96/63 (85) 06/12/17 15:00 73 06/12/17 15:00 91/56 (81) 06/12/17 15:00 99.3 73 18 96 114/56 (75) 06/12/17 14:35 97 Nasal Cannula 4 06/12/17 14:30 62 06/12/17 14:30 77/48 (66) 06/12/17 14:00 73/45 (69) 06/12/17 13:05 99 50 06/12/17 13:05 50 06/12/17 13:05 99.1 68 15 99 109/63 (78) 06/12/17 13:05 92/64 (90) 06/12/17 04:00 66 06/12/17 04:00 98.7 67 18 96 140/68 (92) 06/12/17 04:00 140/68 (105) 06/12/17 00:00 70 06/12/17 00:00 98.5 70 18 161/70 (100) 93 158/82 (107) 06/12/17 00:00 158/82 (129) 06/11/17 22:25 94 Nasal Cannula 2.00 I/O 06/11/17 06/11/17 06/11/17 06/12/17 06/12/17 06/12/17 07:00 15:00 23:00 07:00 15:00 23:00 Intake Total 630 ml 700 ml 518 ml 4110 ml 340 ml Output Total 450 ml 1400 ml 800 ml 1800 ml 400 ml Balance 180 ml -700 ml -282 ml 2310 ml -60 ml Intake Oral 630 ml 700 ml 240 ml 240 ml IV Total 278 ml 460 ml 100 ml Autotransfusion 750 ml Other 2900 ml Output Urine Total 450 ml 1400 ml 800 ml 500 ml 300 ml Chest Tube Drainage Total 100 ml Estimated Blood Loss 1300 ml # Voids 3 # Bowel Movements 0 0 0 0 Physical Exam GENERAL: NAD, AAOx3 (previously after yesterday's events was only x2) SKIN: Warm and dry. HEAD: Atraumatic. Normocephalic. EYES: Pupils equal and round. No scleral icterus. No injection or drainage. ENT: No nasal bleeding or discharge. Mucous membranes pink and moist. NECK: Trachea midline. No JVD. CARDIOVASCULAR: Regular rate and rhythm. Sternotomy with wound vac RESPIRATORY: No accessory muscle use. Clear to auscultation. Breath sounds equal bilaterally. GASTROINTESTINAL: Abdomen soft, non-tender, nondistended. Hepatic and splenic margins not palpable. MUSCULOSKELETAL: Extremities without clubbing, cyanosis, or edema. No obvious deformities. Right groin with no hematoma/ecchymosis. Distal pulses palpable NEUROLOGICAL: Awake and alert. No obvious cranial nerve deficits. Motor grossly within normal limits. Five out of 5 muscle strength in the arms and legs. Normal speech. PSYCHIATRIC: Appropriate mood and affect; insight and judgment normal. Laboratory Laboratory Tests Test 06/12/17 05:00 White Blood Count 7.4 TH/MM3 Red Blood Count 3.84 MIL/MM3 Hemoglobin 12.6 GM/DL Hematocrit 36.0 % Mean Corpuscular Volume 93.8 FL Mean Corpuscular Hemoglobin 32.9 PG Mean Corpuscular Hemoglobin Concent 35.1 % Red Cell Distribution Width 12.7 % Platelet Count 114 TH/MM3 Mean Platelet Volume 10.2 FL Neutrophils (%) (Auto) 76.4 % Lymphocytes (%) (Auto) 11.7 % Monocytes (%) (Auto) 9.7 % Eosinophils (%) (Auto) 2.0 % Basophils (%) (Auto) 0.2 % Neutrophils # (Auto) 5.6 TH/MM3 Lymphocytes # (Auto) 0.9 TH/MM3 Monocytes # (Auto) 0.7 TH/MM3 Eosinophils # (Auto) 0.2 TH/MM3 Basophils # (Auto) 0.0 TH/MM3 CBC Comment DIFF FINAL Differential Comment Activated Partial Thromboplast Time 41.1 SEC Blood Urea Nitrogen 24 MG/DL Creatinine 0.90 MG/DL Random Glucose 123 MG/DL Total Protein 7.1 GM/DL Albumin 3.1 GM/DL Calcium Level 9.2 MG/DL Alkaline Phosphatase 48 U/L Aspartate Amino Transf (AST/SGOT) 51 U/L Alanine Aminotransferase (ALT/SGPT) 87 U/L Total Bilirubin 0.4 MG/DL Sodium Level 137 MEQ/L Potassium Level 4.3 MEQ/L Chloride Level 98 MEQ/L Carbon Dioxide Level 30.6 MEQ/L Anion Gap 8 MEQ/L Estimat Glomerular Filtration Rate 86 ML/MIN Imaging Last 24 hours Impressions Chest X-Ray 06/12/17 0000 Signed Impressions: Service Date/Time: May 13:41 - CONCLUSION: 1. Support equipment is in good position. There is no pneumothorax. Stable postoperative chest. Gabino Benitez MD Assessment and Plan Problem List: (1) Ventricular fibrillation ICD Codes: I49.01 - Ventricular fibrillation Status: Acute (2) Cardiac arrest ICD Codes: I46.9 - Cardiac arrest, cause unspecified Status: Acute (3) CAD (coronary artery disease) ICD Codes: I25.10 - Atherosclerotic heart disease of [place] coronary artery without angina pectoris (4) Left main coronary artery disease ICD Codes: I25.10 - Atherosclerotic heart disease of [place] coronary artery without angina pectoris (5) Multi-vessel coronary artery stenosis ICD Codes: I25.10 - Atherosclerotic heart disease of [place] coronary artery without angina pectoris (6) Elevated LFTs ICD Codes: R79.89 - Other specified abnormal findings of blood chemistry Assessment and Plan 1) V. Fib arrest Secondary to ischemia Started on Amiodarone drip, changed to PO 2) NSTEMI/CAD s/p CABGx2 POD #0 SALES to LAD SVG to OM2 3) EF 40%, trace to mild MR PerdomoBandarneil Adhikari Jun 12, 2017 21:24
[2017-06-13] VITALS (18 sets, daily range): BP systolic 94–161; BP diastolic 53–87; PULSE 84–131; RESP 16–20; TEMP 98.5–99.2; O2SAT 92–94
[2017-06-13] MEDS: ACETAMINOPHEN 1000 MG/100 ML 100 ML IV SCH ×2 (01:04→06:59)
[2017-06-13] MEDS: oxyCODONE/ACETAMINOPHEN 5 MG/325 MG TAB PO PRN ×3 (03:48→22:28)
[2017-06-13] MEDS: CHLORHEXIDINE GLUCONATE 2 % 1 PACK (2 CLOTHS) TOP SCH (04:00)
[2017-06-13] MEDS: RESP: ALBUTEROL 2.5 MG/IPRATROPIUM 0.5 MG NEB (SCH) NEB ×4 (04:04→21:46)
[2017-06-13 05:19] LABS: AUTOMATED NEUTROPHIL # 11.5 TH/MM3 (1.8-7.7); BASOPHIL % 0.1 % (0.0-2.0); EOSINOPHIL % 0.1 % (0.0-4.0); HEMATOCRIT 30.9 % (39.0-51.0); LYMPH % 5.7 % (9.0-44.0); LYMPHOCYTE # 0.8 TH/MM3 (1.0-4.8); MEAN CELL VOLUME 94.3 FL (80.0-100.0); MEAN CORPUSCULAR HEMOGLOBIN 31.7 PG (27.0-34.0); MEAN CORPUSCULAR HGB CONC 33.6 % (32.0-36.0); MONO % 10.6 % (0.0-8.0); NEUT % 83.5 % (16.0-70.0); PLATELET COUNT 130 TH/MM3 (150-450); RED BLOOD COUNT 3.28 MIL/MM3 (4.50-5.90); RED CELL DISTRIBUTION WIDTH 13.3 % (11.6-17.2); WHITE BLOOD COUNT 13.8 TH/MM3 (4.0-11.0)
[2017-06-13 05:21] LABS: HEMO FLAGS AUTO DIFF
[2017-06-13 05:48] LABS: ALKALINE PHOSPHATASE 36 U/L (45-117); ALT (GPT) 59 U/L (12-78); ANION GAP 11 MEQ/L (5-15); AST (GOT) 49 U/L (15-37); BICARBONATE 23.4 MEQ/L (21.0-32.0); BLOOD UREA NITROGEN 25 MG/DL (7-18); CHLORIDE 100 MEQ/L (98-107); GLOMERULAR FILTRATION RATE 97 ML/MIN (>89); MAGNESIUM 1.9 MG/DL (1.5-2.5); POTASSIUM 4.3 MEQ/L (3.5-5.1); SODIUM (NA) 134 MEQ/L (136-145); TOTAL BILIRUBIN ADULT 0.6 MG/DL (0.2-1.0)
--- NOTE | 2017-06-13 05:56 | RADRPT ---
EXAM DATE/TIME: 06/13/2017 04:39 [place] COMPARISON: CHEST SINGLE AP, June 12, 2017, 13:41. INDICATIONS : Chest pain post CABG MEDICAL HISTORY : Myocardial infarction. Hypercholesterolemia. Hypertension. SURGICAL HISTORY : CABG. Coronary artery stent. Cardiac catheterization. Back surgery ENCOUNTER: Subsequent ACUITY: 4 - 6 days PAIN SCORE: 7/10 LOCATION: Bilateral chest FINDINGS: Portable AP view of the chest demonstrates severely underinflated examination in this patient post me earline sternotomy. Nasogastric tube and endotracheal tube have been removed. Large bore left chest tube remains present and there is a left subclavian sheath. There is bibasilar airspace opacity. CONCLUSION: 1. Left chest tube remains present and no pneumothorax is seen. 2. Severely underinflated examination with bibasilar opacity which could represent atelectasis. Rk Laazr MD on June 13, 2017 at 5:54 Board Certified Radiologist. This report was verified electronically.
[2017-06-13 05:59] LABS: BANDS 3 % (0-6); NEUTROPHIL # MANUAL DIFF 12.7 TH/MM3 (1.8-7.7); POLYS (SEG NEUTROPHILS) 89 % (16-70); SCAN/DIFF FINAL DIFF MANUAL; WBC DIFF SAMPLE 100
[2017-06-13] MEDS: FAMOTIDINE 20 MG/2 ML VIAL IV PUSH SCH (06:58)
[2017-06-13] MEDS: PANTOPRAZOLE SOD 40 MG DELAYED RELEASE TAB PO SCH (06:58)
[2017-06-13] MEDS: MUPIROCIN 2% OINT 1 APPLIC/GM SYR EACH NARE SCH (09:00)
[2017-06-13] MEDS ORDERED: MULTIVITAMIN INJ 10 ML, THIAMINE INJ 500 MG, FOLIC ACID INJ 1 MG in SODIUM CHLORID 0.9%... IV SCH (09:00)
[2017-06-13] MEDS ORDERED: FUROSEMIDE 40 MG/4 ML VIAL IV PUSH ONE (09:30)
[2017-06-13] MEDS ORDERED: POTASSIUM CHLORIDE 20 MEQ CONTROLLED RELEASE TAB PO ONE (09:30)
[2017-06-13] MEDS ORDERED: GLUCAGON 1 MG/ML VIAL OTHER PRN (09:30)
[2017-06-13] MEDS ORDERED: DEXTROSE 50% IN WATER 50 ML VIAL(D50) IV PUSH PRN (09:30)
[2017-06-13] MEDS: SODIUM CHLORIDE 0.9% FLUSH 10 ML FLUSH IV FLUSH SCH ×2 (09:36→19:47)
[2017-06-13] MEDS: VANCOMYCIN INJ 1,750 MG in SODIUM CHLORID 0.9% 500 ML INJ 500 ML IV SCH ×2 (09:37→19:47)
[2017-06-13] MEDS: CLOPIDOGREL 75 MG TAB PO SCH (09:38)
[2017-06-13] MEDS: ASPIRIN 81 MG CHEW TAB PO SCH (09:38)
[2017-06-13] MEDS: METOPROLOL TARTRATE 25 MG TAB PO SCH ×3 (09:39→21:00)
[2017-06-13] MEDS: AMIODARONE 200 MG TAB PO SCH ×2 (09:39→19:46)
[2017-06-13] MEDS: amLODIPine BESYLATE 5 MG TAB PO SCH (09:40)
[2017-06-13] MEDS: MAGNESIUM HYDROXIDE SUSP 30 ML CUP PO SCH (09:50)
[2017-06-13] MEDS: INSULIN ASPART SUPPLEMENTAL SCALE SQ SCH ×4 (10:06→22:00)
[2017-06-13] MEDS ORDERED: RESP: ALBUTEROL 2.5 MG/IPRATROPIUM 0.5 MG NEB (PRN) NEB (10:15)
[2017-06-13] MEDS: LISINOPRIL 10 MG TAB PO SCH (12:12)
--- NOTE | 2017-06-13 13:04 | PD.CARD.PN ---
Subjective Subjective Remarks Post-CABG Up in the chair Feels well, appropriate sternal pain Objective Medications Current Medications Medications (Trade) Dose Ordered Sig/Margaret Route Start Time Stop Time Status Last Admin Miscellaneous Information 1 Q361D XX 06/07/17 16:45 (Lactulose Liq) 30 ml DAILY PRN PO 06/07/17 16:45 (Lopressor) 25 mg Q12HR PO 06/07/17 21:00 06/13/17 09:39 (Norvasc) 5 mg DAILY PO 06/10/17 09:00 06/13/17 09:40 (Xanax) 0.25 mg Q8H PRN PO 06/10/17 18:45 06/11/17 02:03 (NS Flush) 2 ml BID IV FLUSH 06/12/17 21:00 06/13/17 09:36 (NS Flush) 2 ml UNSCH PRN IV FLUSH 06/12/17 12:30 Vancomycin HCl 1750 mg/Sodium Chloride 500 ml @ 250 mls/hr Q12H IV 06/12/17 20:00 06/13/17 21:59 06/13/17 09:37 (Aspirin Chew) 81 mg DAILY PO 06/13/17 09:00 06/13/17 09:38 (Plavix) 75 mg DAILY PO 06/13/17 09:00 06/13/17 09:38 (Protonix) 40 mg DAILY@06 PO 06/13/17 06:00 06/13/17 06:58 (Cordarone) 400 mg Q12HR PO 06/12/17 21:00 06/13/17 09:39 (Tylenol) 650 mg Q4H PRN PO 06/12/17 12:30 (Percocet 5-325 Mg) 1 tab Q3H PRN PO 06/12/17 12:30 06/13/17 03:48 (Toradol Inj) 15 mg Q6H PRN IV PUSH 06/12/17 12:30 06/14/17 12:29 (fentaNYL INJ) 25 mcg Q1H PRN IV PUSH 06/12/17 12:30 06/12/17 22:37 (Zofran Inj) 4 mg Q6H PRN IV PUSH 06/12/17 12:30 (KCl) 20 meq UNSCH PRN PO 06/12/17 12:30 (D50w (Vial) Inj) 50 ml UNSCH PRN IV PUSH 06/12/17 12:30 (Percocet 5-325 Mg) 2 tab Q3HR PRN PO 06/13/17 09:30 (Prinivil) 10 mg DAILY PO 06/13/17 12:00 06/13/17 12:12 (Duoneb Neb) 1 ampule Q6HR WHILE AWAKE NEB NEB 06/13/17 14:00 06/15/17 13:59 (Colace) 100 mg BID PO 06/13/17 21:00 (Theragran M Tab) 1 tab DAILY PO 06/14/17 09:00 (Milk Of Magnesia Liq) 30 ml DAILY PO 06/13/17 09:50 (Dulcolax Supp) 10 mg UNSCH PRN RECTAL 06/15/17 09:00 (Miralax) 17 gm DAILY PO 06/14/17 09:00 (Senokot) 8.6 mg HS PO 06/13/17 21:00 (Fleets Enema (Adult)) 118 ml UNSCH PRN RECTAL 06/15/17 09:00 (NovoLOG SUPPLEMENTAL SCALE) 1 02,06,10,14,18,22 SQ 06/13/17 10:00 06/14/17 09:59 06/13/17 10:06 (D50w (Vial) Inj) 50 ml UNSCH PRN IV PUSH 06/13/17 09:30 (Glucagon Inj) 1 mg UNSCH PRN OTHER 06/13/17 09:30 (NovoLOG SUPPLEMENTAL SCALE) 1 ACHS SQ 06/14/17 17:00 (Duoneb Neb) 1 ampule Q2HR NEB PRN NEB 06/13/17 10:15 Vital Signs / I&O Vital Signs Date Time Temp Pulse Resp B/P (MAP) Pulse Ox O2 Delivery O2 Flow Rate FiO2 06/13/17 11:00 99.2 99 16 124/87 (99) 94 06/13/17 11:00 99 06/13/17 09:20 92 Nasal Cannula 4.00 06/13/17 08:30 106 06/13/17 08:30 99.2 106 16 148/87 (107) 92 161/84 (109) 06/13/17 04:50 20 06/13/17 03:00 98.9 84 20 153/83 (106) 94 122/68 (86) 06/13/17 03:00 93 06/13/17 01:35 18 06/12/17 23:40 22 06/12/17 23:00 99.8 84 18 120/60 (80) 95 134/68 (90) 06/12/17 23:00 84 06/12/17 20:01 98 Nasal Cannula 2.00 06/12/17 19:51 100 Nasal Cannula 4.00 06/12/17 19:45 93 Nasal Cannula 3.00 06/12/17 19:00 100.2 83 20 120/74 (89) 94 133/64 (87) 06/12/17 19:00 89 06/12/17 18:27 97 Nasal Cannula 3.00 06/12/17 16:00 96/63 (85) 06/12/17 15:00 73 06/12/17 15:00 91/56 (81) 06/12/17 15:00 99.3 73 18 96 114/56 (75) 06/12/17 14:35 97 Nasal Cannula 4 06/12/17 14:30 62 06/12/17 14:30 77/48 (66) 06/12/17 14:00 73/45 (69) 06/12/17 13:05 99 50 06/12/17 13:05 50 06/12/17 13:05 99.1 68 15 99 109/63 (78) 06/12/17 13:05 92/64 (90) I/O 06/12/17 06/12/17 06/12/17 06/13/17 06/13/17 06/13/17 07:00 15:00 23:00 07:00 15:00 23:00 Intake Total 518 ml 4110 ml 840 ml 940 ml 610 ml Output Total 800 ml 1800 ml 400 ml 800 ml Balance -282 ml 2310 ml 440 ml 140 ml 610 ml Intake Oral 240 ml 240 ml 840 ml IV Total 278 ml 460 ml 600 ml 100 ml 610 ml Autotransfusion 750 ml Other 2900 ml Output Urine Total 800 ml 500 ml 300 ml 600 ml Chest Tube Drainage Total 100 ml 200 ml Estimated Blood Loss 1300 ml # Voids 3 # Bowel Movements 0 0 0 Physical Exam GENERAL: NAD, AAOx3 (previously after yesterday's events was only x2) SKIN: Warm and dry. HEAD: Atraumatic. Normocephalic. EYES: Pupils equal and round. No scleral icterus. No injection or drainage. ENT: No nasal bleeding or discharge. Mucous membranes pink and moist. NECK: Trachea midline. No JVD. CARDIOVASCULAR: Regular rate and rhythm. Sternotomy with wound vac RESPIRATORY: No accessory muscle use. Clear to auscultation. Breath sounds equal bilaterally. GASTROINTESTINAL: Abdomen soft, non-tender, nondistended. Hepatic and splenic margins not palpable. MUSCULOSKELETAL: Extremities without clubbing, cyanosis, or edema. No obvious deformities. Right groin with no hematoma/ecchymosis. Distal pulses palpable NEUROLOGICAL: Awake and alert. No obvious cranial nerve deficits. Motor grossly within normal limits. Five out of 5 muscle strength in the arms and legs. Normal speech. PSYCHIATRIC: Appropriate mood and affect; insight and judgment normal. Laboratory Laboratory Tests Test 06/13/17 04:56 White Blood Count 13.8 TH/MM3 Red Blood Count 3.28 MIL/MM3 Hemoglobin 10.4 GM/DL Hematocrit 30.9 % Mean Corpuscular Volume 94.3 FL Mean Corpuscular Hemoglobin 31.7 PG Mean Corpuscular Hemoglobin Concent 33.6 % Red Cell Distribution Width 13.3 % Platelet Count 130 TH/MM3 Mean Platelet Volume 9.1 FL Neutrophils (%) (Auto) 83.5 % Lymphocytes (%) (Auto) 5.7 % Monocytes (%) (Auto) 10.6 % Eosinophils (%) (Auto) 0.1 % Basophils (%) (Auto) 0.1 % Neutrophils # (Auto) 11.5 TH/MM3 Lymphocytes # (Auto) 0.8 TH/MM3 Monocytes # (Auto) 1.5 TH/MM3 Eosinophils # (Auto) 0.0 TH/MM3 Basophils # (Auto) 0.0 TH/MM3 CBC Comment AUTO DIFF Differential Total Cells Counted 100 Neutrophils % (Manual) 89 % Band Neutrophils % 3 % Lymphocytes % 4 % Monocytes % 4 % Neutrophils # (Manual) 12.7 TH/MM3 Differential Comment FINAL DIFF MANUAL Blood Urea Nitrogen 25 MG/DL Creatinine 0.81 MG/DL Random Glucose 139 MG/DL Total Protein 5.8 GM/DL Albumin 2.7 GM/DL Calcium Level 7.9 MG/DL Magnesium Level 1.9 MG/DL Alkaline Phosphatase 36 U/L Aspartate Amino Transf (AST/SGOT) 49 U/L Alanine Aminotransferase (ALT/SGPT) 59 U/L Total Bilirubin 0.6 MG/DL Sodium Level 134 MEQ/L Potassium Level 4.3 MEQ/L Chloride Level 100 MEQ/L Carbon Dioxide Level 23.4 MEQ/L Anion Gap 11 MEQ/L Estimat Glomerular Filtration Rate 97 ML/MIN Imaging Last 24 hours Impressions Chest X-Ray 06/13/17 0500 Signed Impressions: Service Date/Time: Tuesday, June 13, 2017 04:39 - CONCLUSION: 1. Left chest tube remains present and no pneumothorax is seen. 2. Severely underinflated examination with bibasilar opacity which could represent atelectasis. Rk Lazar MD Assessment and Plan Problem List: (1) Ventricular fibrillation ICD Codes: I49.01 - Ventricular fibrillation Status: Acute (2) Cardiac arrest ICD Codes: I46.9 - Cardiac arrest, cause unspecified Status: Acute (3) CAD (coronary artery disease) ICD Codes: I25.10 - Atherosclerotic heart disease of [place] coronary artery without angina pectoris (4) Left main coronary artery disease ICD Codes: I25.10 - Atherosclerotic heart disease of [place] coronary artery without angina pectoris (5) Multi-vessel coronary artery stenosis ICD Codes: I25.10 - Atherosclerotic heart disease of [place] coronary artery without angina pectoris (6) Elevated LFTs ICD Codes: R79.89 - Other specified abnormal findings of blood chemistry Assessment and Plan 1) V. Fib arrest Secondary to ischemia Amio PO No need for Lifevest, discussed with CT surgery 2) NSTEMI/CAD s/p CABGx2 POD #1 SALES to LAD SVG to OM2 3) EF 40%, trace to mild MR 4) ASA/Plavix/Amio/BB/Statin/RICHARD-I 5) Will see on Friday if still here, questions over the weekend, please contact covering physician Casper Perdomo DO Jun 13, 2017 13:04
--- NOTE | 2017-06-13 16:01 | PD.CAR.PN ---
CVT Progress Note Subjective/Hospital Course: 62-year-old male was apparently at the [place] car show at [facility] over the weekend. Admit date was 06/07/2017. The patient is visiting from the [facility] area. He was walking around the car show. Per the notes from Dr. Perdomo the patient apparently told somebody that he was not feeling well. They got him a chair and when he sat down he passed out. He was found to not have a pulse by an off duty EMS who started CPR. EMS was immediately there. He was found to be in ventricular fibrillation arrest. He was defibrillated twice and was intubated. They were able to get immediate ROSC ,. He subsequently was transferred to our facility where he underwent cardiac cath which showed left main disease of 90%. The LAD had a 90% stenosis in the ostial portion. The left circumflex had a 90% stenosis in the proximal portion. There was a stent in the midportion with a 50% in-stent restenosis. The right coronary artery was small and nondominant. 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 PAST MEDICAL HISTORY : . Coronary artery disease with stenting of the RCA; he believes in 2007, Hypertension, Diabetes mellitus, History of prior CA, Hyperlipidemia, Tobacco abuse. 06/10 remains pain free, on Heparin gtt, BP elevated this am , IABP 1:2 BB increased, amiodarone changed to po, norvasc added PRU returned at 185/ from 198 / plt count 191> [address] Dr Perdomo and Dr Nelson aware , may need to re-schedule surgery 06/11 repeat PRU done, now 227 for surgery in am , on Heparin gtt, IABP 1:2 good augmentation , good distal pulses pain free 06/12 1. Urgent Off-pump Coronary Artery Bypass Grafting x 2 with Left Internal Mammary Artery (SALES) to the Left Anterior Descending (LAD), reverse saphenous vein graft to the Obtuse Marginal 2 (OM2) 2. Left Leg Vein [place] 3. Intraoperative Vein Mapping crystalloid 2900cc crystalloid, 750cc cell saver, 1300cc EBL extubated after surgery, IABP removed 06/13 pt up in chair, pain controlled chest tube drained 200cc/ 12 hrs recheck LFT on friday, if normalized consider starting statin remains in NSR started on low dose RICHARD transfer to stepdown Objective: GENERAL: SKIN: Warm and dry. prevena dressing to chest , incision intact left leg HEAD: Normocephalic. EYES: No scleral icterus. No injection or drainage. NECK: Supple, trachea midline. No JVD or lymphadenopathy. CARDIOVASCULAR: Regular rate and rhythm without murmurs, gallops, or rubs. RESPIRATORY: Breath sounds equal bilaterally. No accessory muscle use. chest tube to wall suction, no air leak GASTROINTESTINAL: Abdomen soft, non-tender, nondistended. MUSCULOSKELETAL: No cyanosis, or edema. BACK: Nontender without obvious deformity. No CVA tenderness. Vital Signs Date Time Temp Pulse Resp B/P (MAP) Pulse Ox O2 Delivery O2 Flow Rate FiO2 06/13/17 15:16 99.0 98 16 113/56 (75) 94 Arterial Line 06/13/17 11:00 99.2 99 16 124/87 (99) 94 06/13/17 11:00 99 06/13/17 09:20 92 Nasal Cannula 4.00 06/13/17 08:30 106 06/13/17 08:30 99.2 106 16 148/87 (107) 92 161/84 (109) 06/13/17 04:50 20 06/13/17 03:00 98.9 84 20 153/83 (106) 94 122/68 (86) 06/13/17 03:00 93 06/13/17 01:35 18 06/12/17 23:40 22 06/12/17 23:00 99.8 84 18 120/60 (80) 95 134/68 (90) 06/12/17 23:00 84 06/12/17 20:01 98 Nasal Cannula 2.00 06/12/17 19:51 100 Nasal Cannula 4.00 06/12/17 19:45 93 Nasal Cannula 3.00 06/12/17 19:00 100.2 83 20 120/74 (89) 94 133/64 (87) 06/12/17 19:00 89 06/12/17 18:27 97 Nasal Cannula 3.00 06/12/17 16:00 96/63 (85) Labs: Laboratory Tests Test 06/13/17 04:56 White Blood Count 13.8 TH/MM3 (4.0-11.0) Red Blood Count 3.28 MIL/MM3 (4.50-5.90) Hemoglobin 10.4 GM/DL (13.0-17.0) Hematocrit 30.9 % (39.0-51.0) Mean Corpuscular Volume 94.3 FL (80.0-100.0) Mean Corpuscular Hemoglobin 31.7 PG (27.0-34.0) Mean Corpuscular Hemoglobin Concent 33.6 % (32.0-36.0) Red Cell Distribution Width 13.3 % (11.6-17.2) Platelet Count 130 TH/MM3 (150-450) Mean Platelet Volume 9.1 FL (7.0-11.0) Neutrophils (%) (Auto) 83.5 % (16.0-70.0) Lymphocytes (%) (Auto) 5.7 % (9.0-44.0) Monocytes (%) (Auto) 10.6 % (0.0-8.0) Eosinophils (%) (Auto) 0.1 % (0.0-4.0) Basophils (%) (Auto) 0.1 % (0.0-2.0) Neutrophils # (Auto) 11.5 TH/MM3 (1.8-7.7) Lymphocytes # (Auto) 0.8 TH/MM3 (1.0-4.8) Monocytes # (Auto) 1.5 TH/MM3 (0-0.9) Eosinophils # (Auto) 0.0 TH/MM3 (0-0.4) Basophils # (Auto) 0.0 TH/MM3 (0-0.2) CBC Comment AUTO DIFF Differential Total Cells Counted 100 Neutrophils % (Manual) 89 % (16-70) Band Neutrophils % 3 % (0-6) Lymphocytes % 4 % (9-44) Monocytes % 4 % (0-8) Neutrophils # (Manual) 12.7 TH/MM3 (1.8-7.7) Differential Comment FINAL DIFF MANUAL Blood Urea Nitrogen 25 MG/DL (7-18) Creatinine 0.81 MG/DL (0.60-1.30) Random Glucose 139 MG/DL (74-106) Total Protein 5.8 GM/DL (6.4-8.2) Albumin 2.7 GM/DL (3.4-5.0) Calcium Level 7.9 MG/DL (8.5-10.1) Magnesium Level 1.9 MG/DL (1.5-2.5) Alkaline Phosphatase 36 U/L (45-117) Aspartate Amino Transf (AST/SGOT) 49 U/L (15-37) Alanine Aminotransferase (ALT/SGPT) 59 U/L (12-78) Total Bilirubin 0.6 MG/DL (0.2-1.0) Sodium Level 134 MEQ/L (136-145) Potassium Level 4.3 MEQ/L (3.5-5.1) Chloride Level 100 MEQ/L (98-107) Carbon Dioxide Level 23.4 MEQ/L (21.0-32.0) Anion Gap 11 MEQ/L (5-15) Estimat Glomerular Filtration Rate 97 ML/MIN (>89) Result Diagram: 06/13/1745506/13/17455 (1) Ventricular fibrillation Plan: NSR, on po amiodarone/ no further arrhythmia on BB , (2) S/P CABG x 2 Plan: ASA, BB , RICHARD gentle diuresis start statin when LFT normalized PT/ OOB pulm toileting (3) Cardiac arrest (4) CAD (coronary artery disease) Plan: (5) Left main coronary artery disease (6) Multi-vessel coronary artery stenosis (7) Elevated LFTs Plan: indices improving start statin if LFT normalized Leelee Farias Jun 13, 2017 16:01
[2017-06-13] MEDS ORDERED: WALKER WHEELS/F1 MIS (16:02)
--- NOTE | 2017-06-13 16:38 | EKG ---
Date Performed: 06/13/2017 Time Performed: 05:09:54 PTAGE: 62 years EKG: Sinus rhythm Possible inferior infarct - age undetermined Abnormal ECG Compared to PREVIOUS TRACING , intraventricular conduction delay and marked ST changes have improved. PREVIOUS TRACIN06/07/2017 17.18 DOCTOR: Liberty Suero Interpretating Date/Time 06/13/2017 16:38:09
[2017-06-13] MEDS: DOCUSATE SODIUM 100 MG CAP PO SCH (19:46)
[2017-06-13] MEDS: SENNOSIDES 8.6 MG TAB PO SCH (19:46)
[2017-06-14] VITALS (29 sets, daily range): BP systolic 81–120; BP diastolic 49–70; PULSE 74–128; RESP 16–18; TEMP 97.9–98.3; O2SAT 90–95
[2017-06-14] MEDS ORDERED: AMIODARONE INJ 450 MG in D5W (EXCEL BAG) INJ 241 ML IV PRN (02:15)
[2017-06-14] MEDS ORDERED: AMIODARONE 150 MG/D5W 97 ML BOLUS 60 MINUTES IV ONE ×2 (02:15)
[2017-06-14] MEDS: MAGNESIUM SULFATE 1 GM PREMIX 100 ML IV SCH ×2 (02:31→03:30)
[2017-06-14] MEDS: INSULIN ASPART SUPPLEMENTAL SCALE SQ SCH ×4 (02:40→20:47)
[2017-06-14] MEDS: PANTOPRAZOLE SOD 40 MG DELAYED RELEASE TAB PO SCH (06:19)
[2017-06-14 06:58] LABS: AUTOMATED NEUTROPHIL # 8.3 TH/MM3 (1.8-7.7); BASOPHIL % 0.2 % (0.0-2.0); EOSINOPHIL # 0.1 TH/MM3 (0-0.4); EOSINOPHIL % 0.9 % (0.0-4.0); HEMATOCRIT 24.8 % (39.0-51.0); HEMO FLAGS DIFF FINAL; LYMPH % 8.3 % (9.0-44.0); LYMPHOCYTE # 0.9 TH/MM3 (1.0-4.8); MEAN CELL VOLUME 94.4 FL (80.0-100.0); MEAN CORPUSCULAR HEMOGLOBIN 32.2 PG (27.0-34.0); MEAN CORPUSCULAR HGB CONC 34.1 % (32.0-36.0); MONO % 11.4 % (0.0-8.0); NEUT % 79.2 % (16.0-70.0); PLATELET COUNT 121 TH/MM3 (150-450); RED BLOOD COUNT 2.62 MIL/MM3 (4.50-5.90); RED CELL DISTRIBUTION WIDTH 13.1 % (11.6-17.2); WHITE BLOOD COUNT 10.6 TH/MM3 (4.0-11.0)
[2017-06-14 07:19] LABS: ALKALINE PHOSPHATASE 35 U/L (45-117); ALT (GPT) 38 U/L (12-78); ANION GAP 9 MEQ/L (5-15); AST (GOT) 24 U/L (15-37); BLOOD UREA NITROGEN 32 MG/DL (7-18); CHLORIDE 96 MEQ/L (98-107); GLOMERULAR FILTRATION RATE 53 ML/MIN (>89); MAGNESIUM 2.8 MG/DL (1.5-2.5); POTASSIUM 3.9 MEQ/L (3.5-5.1); SODIUM (NA) 132 MEQ/L (136-145); TOTAL BILIRUBIN ADULT 0.4 MG/DL (0.2-1.0)
[2017-06-14] MEDS: RESP: ALBUTEROL 2.5 MG/IPRATROPIUM 0.5 MG NEB (SCH) NEB ×3 (08:12→20:50)
[2017-06-14] MEDS: SODIUM CHLORIDE 0.9% FLUSH 10 ML FLUSH IV FLUSH SCH ×2 (09:00→20:44)
[2017-06-14] MEDS: MAGNESIUM HYDROXIDE SUSP 30 ML CUP PO SCH (09:00)
[2017-06-14] MEDS: POLYETHYLENE GLYCOL 17 GM PKG PO SCH (09:29)
[2017-06-14] MEDS: METOPROLOL TARTRATE 25 MG TAB PO SCH ×2 (09:30→20:46)
[2017-06-14] MEDS: AMIODARONE 200 MG TAB PO SCH ×2 (09:30→20:47)
[2017-06-14] MEDS: amLODIPine BESYLATE 5 MG TAB PO SCH (09:30)
[2017-06-14] MEDS: CLOPIDOGREL 75 MG TAB PO SCH (09:31)
[2017-06-14] MEDS: DOCUSATE SODIUM 100 MG CAP PO SCH ×2 (09:31→20:46)
[2017-06-14] MEDS: MULTIVITAMINS/MINERALS THERAPEUTIC TAB PO SCH (09:32)
[2017-06-14] MEDS: ASPIRIN 81 MG CHEW TAB PO SCH (09:32)
[2017-06-14] MEDS: LISINOPRIL 10 MG TAB PO SCH (09:32)
--- NOTE | 2017-06-14 12:10 | PD.CAR.PN ---
CVT Progress Note CVT: POD #: 2 Subjective/Hospital Course: 62-year-old male was apparently at the [employer] car show at [facility] over the weekend. Admit date was 06/07/2017. The patient is visiting from the [facility]. He was walking around the car show. Per the notes from Dr. Perdomo the patient apparently told somebody that he was not feeling well. They got him a chair and when he sat down he passed out. He was found to not have a pulse by an off duty EMS who started CPR. EMS was immediately there. He was found to be in ventricular fibrillation arrest. He was defibrillated twice and was intubated. They were able to get immediate ROSC ,. He subsequently was transferred to our facility where he underwent cardiac cath which showed left main disease of 90%. The LAD had a 90% stenosis in the ostial portion. The left circumflex had a 90% stenosis in the proximal portion. There was a stent in the midportion with a 50% in-stent restenosis. The right coronary artery was small and nondominant. An intra-aortic balloon pump was placed in the blood bank laboratory technologist by Dr. Perdomo for left main disease. PAST MEDICAL HISTORY : . Coronary artery disease with stenting of the RCA; he believes in 2007, Hypertension, Diabetes mellitus, History of prior [place], Hyperlipidemia, Tobacco abuse. 06/10 remains pain free, on Heparin gtt, BP elevated this am , IABP 1:2 BB increased, amiodarone changed to po, norvasc added PRU returned at 185/ from 198 / plt count 191> [address] and Dr Nelson aware , may need to re-schedule surgery 06/11 repeat PRU done, now 227 for surgery in am , on Heparin gtt, IABP 1:2 good augmentation , good distal pulses pain free 06/12 1. Urgent Off-pump Coronary Artery Bypass Grafting x 2 with Left Internal Mammary Artery (SALES) to the Left Anterior Descending (LAD), reverse saphenous vein graft to the Obtuse Marginal 2 (OM2) 2. Left Leg Vein [place] 3. Intraoperative Vein Mapping crystalloid 2900cc crystalloid, 750cc cell saver, 1300cc EBL extubated after surgery, IABP removed 06/13 pt up in chair, pain controlled chest tube drained 200cc/ 12 hrs recheck LFT on friday, if normalized consider starting statin remains in NSR started on low dose RICHARD transfer to stepdown 06/14/17 No complaints. Episode of AFIB responsive to amiodarone. Back in NSR Cr up to 1.36 Objective: Vital Signs Date Time Temp Pulse Resp B/P (MAP) Pulse Ox O2 Delivery O2 Flow Rate FiO2 06/14/17 08:12 92 Nasal Cannula 2.00 06/14/17 06:45 93 06/14/17 05:03 84 06/14/17 04:09 85 06/14/17 03:34 89 121/56 06/14/17 03:07 86 06/14/17 03:07 98.3 86 16 118/56 (76) 94 06/14/17 02:30 126 102/56 06/14/17 02:04 117 06/14/17 01:40 128 06/14/17 00:13 105 06/13/17 23:53 98.6 106 17 110/58 (75) 93 06/13/17 23:31 107 06/13/17 22:12 131 06/13/17 21:50 92 Nasal Cannula 2.00 06/13/17 21:00 98 06/13/17 20:15 98 06/13/17 19:20 98.5 102 18 94/53 (67) 94 06/13/17 19:15 104 06/13/17 18:00 96 06/13/17 17:23 98 06/13/17 16:00 96 06/13/17 15:16 99.0 98 16 113/56 (75) 94 Arterial Line 06/13/17 15:00 92 06/13/17 14:00 99 Labs: Laboratory Tests Test 06/14/17 05:00 White Blood Count 10.6 TH/MM3 (4.0-11.0) Red Blood Count 2.62 MIL/MM3 (4.50-5.90) Hemoglobin 8.5 GM/DL (13.0-17.0) Hematocrit 24.8 % (39.0-51.0) Mean Corpuscular Volume 94.4 FL (80.0-100.0) Mean Corpuscular Hemoglobin 32.2 PG (27.0-34.0) Mean Corpuscular Hemoglobin Concent 34.1 % (32.0-36.0) Red Cell Distribution Width 13.1 % (11.6-17.2) Platelet Count 121 TH/MM3 (150-450) Mean Platelet Volume 9.4 FL (7.0-11.0) Neutrophils (%) (Auto) 79.2 % (16.0-70.0) Lymphocytes (%) (Auto) 8.3 % (9.0-44.0) Monocytes (%) (Auto) 11.4 % (0.0-8.0) Eosinophils (%) (Auto) 0.9 % (0.0-4.0) Basophils (%) (Auto) 0.2 % (0.0-2.0) Neutrophils # (Auto) 8.3 TH/MM3 (1.8-7.7) Lymphocytes # (Auto) 0.9 TH/MM3 (1.0-4.8) Monocytes # (Auto) 1.2 TH/MM3 (0-0.9) Eosinophils # (Auto) 0.1 TH/MM3 (0-0.4) Basophils # (Auto) 0.0 TH/MM3 (0-0.2) CBC Comment DIFF FINAL Differential Comment Blood Urea Nitrogen 32 MG/DL (7-18) Creatinine 1.36 MG/DL (0.60-1.30) Random Glucose 139 MG/DL (74-106) Total Protein 5.9 GM/DL (6.4-8.2) Albumin 2.4 GM/DL (3.4-5.0) Calcium Level 8.3 MG/DL (8.5-10.1) Magnesium Level 2.8 MG/DL (1.5-2.5) Alkaline Phosphatase 35 U/L (45-117) Aspartate Amino Transf (AST/SGOT) 24 U/L (15-37) Alanine Aminotransferase (ALT/SGPT) 38 U/L (12-78) Total Bilirubin 0.4 MG/DL (0.2-1.0) Sodium Level 132 MEQ/L (136-145) Potassium Level 3.9 MEQ/L (3.5-5.1) Chloride Level 96 MEQ/L (98-107) Carbon Dioxide Level 27.0 MEQ/L (21.0-32.0) Anion Gap 9 MEQ/L (5-15) Estimat Glomerular Filtration Rate 53 ML/MIN (>89) Result Diagram: 06/14/17 0500 06/14/17 0500 Cardiovascular: RRR Telemetry: NSR Pulmonary: CTA GI/: NABS, NT Incision: dry and intact CT: ~60ml/12 hrs, no air leak Plan: D/C chest tubes Encourage ambulation D/C ACEI due to increase creatinine D/C toradol for same reason Stim BM CBC, BMP in AM (1) Ventricular fibrillation Plan: NSR, on po amiodarone/ no further arrhythmia on BB , (2) S/P CABG x 2 Plan: ASA, BB , RICHARD gentle diuresis start statin when LFT normalized PT/ OOB pulm toileting (3) Cardiac arrest (4) CAD (coronary artery disease) Plan: (5) Left main coronary artery disease (6) Multi-vessel coronary artery stenosis (7) Elevated LFTs Plan: indices improving start statin if LFT normalized Eloisa Gary MD Jun 14, 2017 12:10
[2017-06-14] MEDS: oxyCODONE/ACETAMINOPHEN 5 MG/325 MG TAB PO PRN ×2 (17:45→20:44)
[2017-06-14] MEDS: SENNOSIDES 8.6 MG TAB PO SCH (20:47)
[2017-06-15] VITALS (27 sets, daily range): BP systolic 88–142; BP diastolic 57–69; PULSE 70–107; RESP 16–22; TEMP 97.8–98.3; O2SAT 93–97
[2017-06-15] MEDS: oxyCODONE/ACETAMINOPHEN 5 MG/325 MG TAB PO PRN ×2 (04:39→21:39)
[2017-06-15] MEDS: PANTOPRAZOLE SOD 40 MG DELAYED RELEASE TAB PO SCH (04:39)
[2017-06-15 05:42] LABS: MEAN CELL VOLUME 93.5 FL (80.0-100.0); MEAN CORPUSCULAR HEMOGLOBIN 31.9 PG (27.0-34.0); MEAN CORPUSCULAR HGB CONC 34.1 % (32.0-36.0); PLATELET COUNT 125 TH/MM3 (150-450); RED BLOOD COUNT 2.35 MIL/MM3 (4.50-5.90); REVIEW FLAG FINAL; WHITE BLOOD COUNT 7.6 TH/MM3 (4.0-11.0)
[2017-06-15 05:55] LABS: BICARBONATE 25.2 MEQ/L (21.0-32.0); POTASSIUM 3.8 MEQ/L (3.5-5.1)
[2017-06-15] MEDS: INSULIN ASPART SUPPLEMENTAL SCALE SQ SCH ×4 (08:00→21:00)
[2017-06-15] MEDS ORDERED: SOD PHOSPHATE/SOD BIPHOSPHATE (ADULT) ENEMA 133ML RECTAL PRN (09:00)
[2017-06-15] MEDS: SODIUM CHLORIDE 0.9% FLUSH 10 ML FLUSH IV FLUSH SCH ×2 (09:00→21:39)
[2017-06-15] MEDS ORDERED: BISACODYL 10 MG SUPP RECTAL PRN (09:00)
[2017-06-15] MEDS: RESP: ALBUTEROL 2.5 MG/IPRATROPIUM 0.5 MG NEB (SCH) NEB (10:12)
--- NOTE | 2017-06-15 10:18 | PD.CAR.PN ---
CVT Progress Note CVT: POD #: 3 Subjective/Hospital Course: 62-year-old male was apparently at the [employer] car show at [facility] over the weekend. Admit date was 06/07/2017. The patient is visiting from the [facility]. He was walking around the car show. Per the notes from Dr. Perdomo the patient apparently told somebody that he was not feeling well. They got him a chair and when he sat down he passed out. He was found to not have a pulse by an off duty EMS who started CPR. EMS was immediately there. He was found to be in ventricular fibrillation arrest. He was defibrillated twice and was intubated. They were able to get immediate ROSC ,. He subsequently was transferred to our facility where he underwent cardiac cath which showed left main disease of 90%. The LAD had a 90% stenosis in the ostial portion. The left circumflex had a 90% stenosis in the proximal portion. There was a stent in the midportion with a 50% in-stent restenosis. The right coronary artery was small and nondominant. An intra-aortic balloon pump was placed in the engineer geophysical laboratory by Dr. Perdomo for left main disease. PAST MEDICAL HISTORY : . Coronary artery disease with stenting of the RCA; he believes in 2007, Hypertension, Diabetes mellitus, History of prior [place], Hyperlipidemia, Tobacco abuse. 06/10 remains pain free, on Heparin gtt, BP elevated this am , IABP 1:2 BB increased, amiodarone changed to po, norvasc added PRU returned at 185/ from 198 / plt count 191> [address] Dr Nelson aware , may need to re-schedule surgery 06/11 repeat PRU done, now 227 for surgery in am , on Heparin gtt, IABP 1:2 good augmentation , good distal pulses pain free 06/12 1. Urgent Off-pump Coronary Artery Bypass Grafting x 2 with Left Internal Mammary Artery (SALES) to the Left Anterior Descending (LAD), reverse saphenous vein graft to the Obtuse Marginal 2 (OM2) 2. Left Leg Vein [place] 3. Intraoperative Vein Mapping crystalloid 2900cc crystalloid, 750cc cell saver, 1300cc EBL extubated after surgery, IABP removed 06/13 pt up in chair, pain controlled chest tube drained 200cc/ 12 hrs recheck LFT on friday, if normalized consider starting statin remains in NSR started on low dose RICHARD transfer to stepdown 06/14/17 No complaints. Episode of AFIB responsive to amiodarone. Back in NSR Cr up to 1.36 06/15/17 Doing well, no complaints Creatinine stable at 1.3 Objective: Vital Signs Date Time Temp Pulse Resp B/P (MAP) Pulse Ox O2 Delivery O2 Flow Rate FiO2 06/15/17 07:45 97.8 82 22 105/57 (73) 95 06/15/17 06:08 78 06/15/17 05:20 72 06/15/17 04:00 75 06/15/17 03:50 98.0 79 18 111/61 (78) 94 06/15/17 03:25 82 06/15/17 02:03 74 06/15/17 01:11 73 06/15/17 00:31 70 06/14/17 23:50 76 06/14/17 23:40 98.2 74 17 81/49 (60) 94 06/14/17 22:00 78 06/14/17 21:15 90 06/14/17 20:53 90 Nasal Cannula 3.00 06/14/17 20:20 98 06/14/17 19:41 92 06/14/17 19:30 98.3 94 16 102/56 (71) 94 06/14/17 19:13 18 06/14/17 18:00 98 06/14/17 17:00 94 06/14/17 16:00 86 06/14/17 15:30 98.1 88 18 110/60 (77) 95 06/14/17 15:00 92 06/14/17 14:00 86 06/14/17 13:00 78 06/14/17 12:00 78 06/14/17 11:00 98.2 78 18 108/64 (79) 95 06/14/17 11:00 84 Labs: Laboratory Tests Test 06/15/17 05:00 White Blood Count 7.6 TH/MM3 (4.0-11.0) Red Blood Count 2.35 MIL/MM3 (4.50-5.90) Hemoglobin 7.5 GM/DL (13.0-17.0) Hematocrit 22.0 % (39.0-51.0) Mean Corpuscular Volume 93.5 FL (80.0-100.0) Mean Corpuscular Hemoglobin 31.9 PG (27.0-34.0) Mean Corpuscular Hemoglobin Concent 34.1 % (32.0-36.0) Red Cell Distribution Width 13.0 % (11.6-17.2) Platelet Count 125 TH/MM3 (150-450) Mean Platelet Volume 9.4 FL (7.0-11.0) Blood Urea Nitrogen 37 MG/DL (7-18) Creatinine 1.32 MG/DL (0.60-1.30) Random Glucose 112 MG/DL (74-106) Calcium Level 8.2 MG/DL (8.5-10.1) Sodium Level 131 MEQ/L (136-145) Potassium Level 3.8 MEQ/L (3.5-5.1) Chloride Level 96 MEQ/L (98-107) Carbon Dioxide Level 25.2 MEQ/L (21.0-32.0) Anion Gap 10 MEQ/L (5-15) Estimat Glomerular Filtration Rate 55 ML/MIN (>89) Result Diagram: 06/15/17 0500 06/15/17 0500 Cardiovascular: RRR Telemetry: NSR Pulmonary: CTA GI/: NABS, NT Incision: dry and intact Plan: Encourage ambulation Hold ACEI secondary to creatinine Discharge planning - ?SNF placement as he lives in [facility]. (1) Ventricular fibrillation Plan: NSR, on po amiodarone/ no further arrhythmia on BB , (2) S/P CABG x 2 Plan: ASA, BB , RICHARD gentle diuresis start statin when LFT normalized PT/ OOB pulm toileting (3) Cardiac arrest (4) CAD (coronary artery disease) Plan: (5) Left main coronary artery disease (6) Multi-vessel coronary artery stenosis (7) Elevated LFTs Plan: indices improving start statin if LFT normalized Eloisa Gary MD Jun 15, 2017 10:18
[2017-06-15] MEDS: POLYETHYLENE GLYCOL 17 GM PKG PO SCH (10:38)
[2017-06-15] MEDS: MAGNESIUM HYDROXIDE SUSP 30 ML CUP PO SCH (10:38)
[2017-06-15] MEDS: amLODIPine BESYLATE 5 MG TAB PO SCH (10:41)
[2017-06-15] MEDS: ASPIRIN 81 MG CHEW TAB PO SCH (10:41)
[2017-06-15] MEDS: METOPROLOL TARTRATE 25 MG TAB PO SCH ×2 (10:42→21:00)
[2017-06-15] MEDS: DOCUSATE SODIUM 100 MG CAP PO SCH ×2 (10:42→21:39)
[2017-06-15] MEDS: AMIODARONE 200 MG TAB PO SCH ×2 (10:42→21:38)
[2017-06-15] MEDS: MULTIVITAMINS/MINERALS THERAPEUTIC TAB PO SCH (10:42)
[2017-06-15] MEDS: CLOPIDOGREL 75 MG TAB PO SCH (11:45)
[2017-06-15] MEDS: SENNOSIDES 8.6 MG TAB PO SCH (21:39)
[2017-06-16] VITALS (26 sets, daily range): BP systolic 103–147; BP diastolic 56–80; PULSE 74–118; RESP 16–18; TEMP 97.9–99.4; O2SAT 95–98
[2017-06-16] MEDS ORDERED: AMIODARONE 150 MG/D5W 97 ML BOLUS 60 MINUTES IV ONE ×2 (02:15)
[2017-06-16 04:40] LABS: HEMATOCRIT 23.2 % (39.0-51.0); MEAN CELL VOLUME 93.9 FL (80.0-100.0); PLATELET COUNT 150 TH/MM3 (150-450); RED BLOOD COUNT 2.47 MIL/MM3 (4.50-5.90); REVIEW FLAG FINAL; WHITE BLOOD COUNT 6.8 TH/MM3 (4.0-11.0)
[2017-06-16] MEDS: PANTOPRAZOLE SOD 40 MG DELAYED RELEASE TAB PO SCH (06:11)
[2017-06-16] MEDS: INSULIN ASPART SUPPLEMENTAL SCALE SQ SCH ×4 (08:00→21:00)
[2017-06-16] MEDS: POLYETHYLENE GLYCOL 17 GM PKG PO SCH (09:00)
[2017-06-16] MEDS: ASPIRIN 81 MG CHEW TAB PO SCH (09:00)
[2017-06-16] MEDS: MAGNESIUM HYDROXIDE SUSP 30 ML CUP PO SCH (09:00)
[2017-06-16] MEDS: METOPROLOL TARTRATE 50 MG TAB PO SCH ×2 (09:00→21:45)
[2017-06-16] MEDS: SODIUM CHLORIDE 0.9% FLUSH 10 ML FLUSH IV FLUSH SCH ×2 (09:00→21:45)
[2017-06-16] MEDS: MULTIVITAMINS/MINERALS THERAPEUTIC TAB PO SCH (09:59)
[2017-06-16] MEDS: amLODIPine BESYLATE 5 MG TAB PO SCH (09:59)
[2017-06-16] MEDS: DOCUSATE SODIUM 100 MG CAP PO SCH ×2 (10:00→21:45)
[2017-06-16] MEDS: AMIODARONE 200 MG TAB PO SCH ×2 (10:00→21:43)
[2017-06-16] MEDS: CLOPIDOGREL 75 MG TAB PO SCH (10:00)
[2017-06-16 11:31] LABS: BICARBONATE 31.2 MEQ/L (21.0-32.0); MAGNESIUM 2.3 MG/DL (1.5-2.5)
--- NOTE | 2017-06-16 12:09 | PD.CARD.PN ---
Subjective Subjective Remarks Up and ambulating with PT, no complaints Over the weekend had episodes of Afib with RVR Objective Medications Current Medications Medications (Trade) Dose Ordered Sig/Margaret Route Start Time Stop Time Status Last Admin Miscellaneous Information 1 Q361D XX 06/07/17 16:45 (Lactulose Liq) 30 ml DAILY PRN PO 06/07/17 16:45 (Norvasc) 5 mg DAILY PO 06/10/17 09:00 06/16/17 09:59 (Xanax) 0.25 mg Q8H PRN PO 06/10/17 18:45 06/11/17 02:03 (NS Flush) 2 ml BID IV FLUSH 06/12/17 21:00 06/16/17 09:00 (NS Flush) 2 ml UNSCH PRN IV FLUSH 06/12/17 12:30 (Aspirin Chew) 81 mg DAILY PO 06/13/17 09:00 06/16/17 09:00 (Plavix) 75 mg DAILY PO 06/13/17 09:00 06/16/17 10:00 (Protonix) 40 mg DAILY@06 PO 06/13/17 06:00 06/16/17 06:11 (Cordarone) 400 mg Q12HR PO 06/12/17 21:00 06/16/17 10:00 (Tylenol) 650 mg Q4H PRN PO 06/12/17 12:30 (Percocet 5-325 Mg) 1 tab Q3H PRN PO 06/12/17 12:30 06/15/17 04:39 (fentaNYL INJ) 25 mcg Q1H PRN IV PUSH 06/12/17 12:30 06/12/17 22:37 (Zofran Inj) 4 mg Q6H PRN IV PUSH 06/12/17 12:30 (KCl) 20 meq UNSCH PRN PO 06/12/17 12:30 (D50w (Vial) Inj) 50 ml UNSCH PRN IV PUSH 06/12/17 12:30 (Percocet 5-325 Mg) 2 tab Q3HR PRN PO 06/13/17 09:30 06/15/17 21:39 (Colace) 100 mg BID PO 06/13/17 21:00 06/16/17 10:00 (Theragran M Tab) 1 tab DAILY PO 06/14/17 09:00 06/16/17 09:59 (Milk Of Magnesia Liq) 30 ml DAILY PO 06/13/17 09:50 06/15/17 10:38 (Miralax) 17 gm DAILY PO 06/14/17 09:00 06/15/17 10:38 (Senokot) 8.6 mg HS PO 06/13/17 21:00 06/15/17 21:39 (Fleets Enema (Adult)) 118 ml UNSCH PRN RECTAL 06/15/17 09:00 (D50w (Vial) Inj) 50 ml UNSCH PRN IV PUSH 06/13/17 09:30 (Glucagon Inj) 1 mg UNSCH PRN OTHER 06/13/17 09:30 (NovoLOG SUPPLEMENTAL SCALE) 1 ACHS SQ 06/14/17 17:00 06/16/17 08:00 (Duoneb Neb) 1 ampule Q2HR NEB PRN NEB 06/13/17 10:15 06/15/17 14:19 (Lopressor) 50 mg Q12HR PO 06/16/17 09:00 06/16/17 09:00 (Lipitor) 40 mg HS PO 06/16/17 21:00 Vital Signs / I&O Vital Signs Date Time Temp Pulse Resp B/P (MAP) Pulse Ox O2 Delivery O2 Flow Rate FiO2 06/16/17 10:00 93 06/16/17 09:00 90 06/16/17 08:00 86 06/16/17 07:38 97 Nasal Cannula 2.00 06/16/17 07:00 98.0 83 16 117/60 (79) 95 06/16/17 07:00 84 06/16/17 07:00 96 Nasal Cannula 2.00 06/16/17 06:00 115 06/16/17 05:00 109 06/16/17 04:00 112 06/16/17 03:00 95 Nasal Cannula 2.00 06/16/17 03:00 97.9 115 18 147/78 (101) 95 06/16/17 03:00 116 06/16/17 02:46 113 157/83 06/16/17 02:00 118 06/16/17 01:00 114 06/16/17 00:00 82 06/15/17 23:00 96 Nasal Cannula 3.00 06/15/17 23:00 98.2 88 16 121/69 (86) 96 06/15/17 23:00 82 06/15/17 22:49 16 06/15/17 22:00 88 06/15/17 21:00 92 06/15/17 20:00 92 06/15/17 20:00 95 Nasal Cannula 2.00 06/15/17 19:00 92 06/15/17 19:00 97 Nasal Cannula 2.00 06/15/17 19:00 98.3 92 18 88/64 (72) 97 06/15/17 18:00 107 06/15/17 17:00 90 06/15/17 16:00 75 06/15/17 15:00 84 18 142/61 (88) 94 06/15/17 15:00 76 06/15/17 14:00 88 06/15/17 13:00 86 I/O 06/15/17 06/15/17 06/15/17 06/16/17 06/16/17 06/16/17 07:00 15:00 23:00 07:00 15:00 23:00 Intake Total 360 ml 960 ml 800 ml Output Total 600 ml 600 ml Balance -240 ml 960 ml 200 ml Intake Oral 360 ml 960 ml 700 ml IV Total 100 ml Output Urine Total 600 ml 600 ml # Voids 4 2 # Bowel Movements 0 1 Physical Exam GENERAL: NAD, AAOx3 SKIN: Warm and dry. HEAD: Atraumatic. Normocephalic. EYES: Pupils equal and round. No scleral icterus. No injection or drainage. ENT: No nasal bleeding or discharge. Mucous membranes pink and moist. NECK: Trachea midline. No JVD. CARDIOVASCULAR: Regular rate and rhythm. Sternotomy with wound vac RESPIRATORY: No accessory muscle use. Clear to auscultation. Breath sounds equal bilaterally. GASTROINTESTINAL: Abdomen soft, non-tender, nondistended. Hepatic and splenic margins not palpable. MUSCULOSKELETAL: Extremities without clubbing, cyanosis, or edema. No obvious deformities. Right groin with no hematoma/ecchymosis. Distal pulses palpable NEUROLOGICAL: Awake and alert. No obvious cranial nerve deficits. Motor grossly within normal limits. Five out of 5 muscle strength in the arms and legs. Normal speech. PSYCHIATRIC: Appropriate mood and affect; insight and judgment normal. Laboratory Laboratory Tests Test 06/16/17 04:12 06/16/17 10:28 White Blood Count 6.8 TH/MM3 Red Blood Count 2.47 MIL/MM3 Hemoglobin 7.9 GM/DL Hematocrit 23.2 % Mean Corpuscular Volume 93.9 FL Mean Corpuscular Hemoglobin 32.0 PG Mean Corpuscular Hemoglobin Concent 34.0 % Red Cell Distribution Width 13.0 % Platelet Count 150 TH/MM3 Mean Platelet Volume 8.9 FL Blood Urea Nitrogen 24 MG/DL Creatinine 0.96 MG/DL Random Glucose 109 MG/DL Calcium Level 8.4 MG/DL Phosphorus Level 3.5 MG/DL Magnesium Level 2.3 MG/DL Sodium Level 133 MEQ/L Potassium Level 4.0 MEQ/L Chloride Level 97 MEQ/L Carbon Dioxide Level 31.2 MEQ/L Anion Gap 5 MEQ/L Estimat Glomerular Filtration Rate 79 ML/MIN Assessment and Plan Problem List: (1) Ventricular fibrillation ICD Codes: I49.01 - Ventricular fibrillation Status: Acute (2) S/P CABG x 2 ICD Codes: Z95.1 - Presence of aortocoronary bypass graft (3) Cardiac arrest ICD Codes: I46.9 - Cardiac arrest, cause unspecified Status: Acute (4) CAD (coronary artery disease) ICD Codes: I25.10 - Atherosclerotic heart disease of [place] coronary artery without angina pectoris (5) Left main coronary artery disease ICD Codes: I25.10 - Atherosclerotic heart disease of [place] coronary artery without angina pectoris (6) Multi-vessel coronary artery stenosis ICD Codes: I25.10 - Atherosclerotic heart disease of [place] coronary artery without angina pectoris (7) Elevated LFTs ICD Codes: R79.89 - Other specified abnormal findings of blood chemistry Assessment and Plan 1) V. Fib arrest Secondary to ischemia Amio PO No need for Lifevest, discussed with CT surgery 2) NSTEMI/CAD s/p CABGx2 POD #4 SALES to LAD SVG to OM2 3) EF 40%, trace to mild MR 4) ASA/Plavix/Amio/BB/Statin/RICHARD-I 5) Afib Mostly NSR, con't Amio/BB CHADSVASc = 4 Will need to consider anti-coagulation, probably start on NOAC and stop Plavix but will further discuss with CT surgery team Will have to watch with anemia Casper Perdomo DO Jun 16, 2017 12:09
--- NOTE | 2017-06-16 15:21 | PD.CAR.PN ---
CVT Progress Note Subjective/Hospital Course: 62-year-old male was apparently at the [employer] car show at [facility] over the weekend. Admit date was 06/07/2017. The patient is visiting from the [facility] area. He was walking around the car show. Per the notes from Dr. Perdomo the patient apparently told somebody that he was not feeling well. They got him a chair and when he sat down he passed out. He was found to not have a pulse by an off duty EMS who started CPR. EMS was immediately there. He was found to be in ventricular fibrillation arrest. He was defibrillated twice and was intubated. They were able to get immediate ROSC ,. He subsequently was transferred to our facility where he underwent cardiac cath which showed left main disease of 90%. The LAD had a 90% stenosis in the ostial portion. The left circumflex had a 90% stenosis in the proximal portion. There was a stent in the midportion with a 50% in-stent restenosis. The right coronary artery was small and nondominant. An intra-aortic balloon pump was placed in the casting house laborer by Dr. Perdomo for left main disease. PAST MEDICAL HISTORY : . Coronary artery disease with stenting of the RCA; he believes in 2007, Hypertension, Diabetes mellitus, History of prior [place], Hyperlipidemia, Tobacco abuse. 06/10 remains pain free, on Heparin gtt, BP elevated this am , IABP 1:2 BB increased, amiodarone changed to po, norvasc added PRU returned at 185/ from 198 / plt count 191> [address] and Dr Nelson aware , may need to re-schedule surgery 06/11 repeat PRU done, now 227 for surgery in am , on Heparin gtt, IABP 1:2 good augmentation , good distal pulses pain free 06/12 1. Urgent Off-pump Coronary Artery Bypass Grafting x 2 with Left Internal Mammary Artery (SALES) to the Left Anterior Descending (LAD), reverse saphenous vein graft to the Obtuse Marginal 2 (OM2) 2. Left Leg Vein [place] 3. Intraoperative Vein Mapping crystalloid 2900cc crystalloid, 750cc cell saver, 1300cc EBL extubated after surgery, IABP removed 06/13 pt up in chair, pain controlled chest tube drained 200cc/ 12 hrs recheck LFT on friday, if normalized consider starting statin remains in NSR started on low dose [facility] No complaints. Episode of AFIB responsive to amiodarone. Back in NSR Cr up to 1.36 06/15/17 Doing well, no complaints Creatinine stable at 1.3 06/16 remains in NSR Felipe v score 4 dc plavix, add eliquis on ASA , taper dose amiodarone wean off 02 for sat > 89% eval for dc tomorrow with [facility] Objective: GENERAL: SKIN: Warm and dry. prevena dressing to chest , incision intact to leg HEAD: Normocephalic. EYES: No scleral icterus. No injection or drainage. NECK: Supple, trachea midline. No JVD or lymphadenopathy. CARDIOVASCULAR: Regular rate and rhythm without murmurs, gallops, or rubs. RESPIRATORY: Breath sounds equal bilaterally. No accessory muscle use.d diminished in bases GASTROINTESTINAL: Abdomen soft, non-tender, nondistended. MUSCULOSKELETAL: No cyanosis, or edema. BACK: Nontender without obvious deformity. No CVA tenderness. Vital Signs Date Time Temp Pulse Resp B/P (MAP) Pulse Ox O2 Delivery O2 Flow Rate FiO2 06/16/17 14:00 88 06/16/17 13:00 84 06/16/17 12:00 83 06/16/17 12:00 88 06/16/17 11:00 97 Nasal Cannula 2.00 06/16/17 11:00 84 06/16/17 11:00 98.1 83 16 147/80 (102) 97 06/16/17 10:00 93 06/16/17 09:00 90 06/16/17 08:00 86 06/16/17 07:38 97 Nasal Cannula 2.00 06/16/17 07:00 98.0 83 16 117/60 (79) 95 06/16/17 07:00 84 06/16/17 07:00 96 Nasal Cannula 2.00 06/16/17 06:00 115 06/16/17 05:00 109 06/16/17 04:00 112 06/16/17 03:00 95 Nasal Cannula 2.00 06/16/17 03:00 97.9 115 18 147/78 (101) 95 06/16/17 03:00 116 06/16/17 02:46 113 157/83 06/16/17 02:00 118 06/16/17 01:00 114 06/16/17 00:00 82 06/15/17 23:00 96 Nasal Cannula 3.00 06/15/17 23:00 98.2 88 16 121/69 (86) 96 06/15/17 23:00 82 06/15/17 22:49 16 06/15/17 22:00 88 06/15/17 21:00 92 06/15/17 20:00 92 06/15/17 20:00 95 Nasal Cannula 2.00 06/15/17 19:00 92 06/15/17 19:00 97 Nasal Cannula 2.00 06/15/17 19:00 98.3 92 18 88/64 (72) 97 06/15/17 18:00 107 06/15/17 17:00 90 06/15/17 16:00 75 Labs: Laboratory Tests Test 06/16/17 04:12 06/16/17 10:28 White Blood Count 6.8 TH/MM3 (4.0-11.0) Red Blood Count 2.47 MIL/MM3 (4.50-5.90) Hemoglobin 7.9 GM/DL (13.0-17.0) Hematocrit 23.2 % (39.0-51.0) Mean Corpuscular Volume 93.9 FL (80.0-100.0) Mean Corpuscular Hemoglobin 32.0 PG (27.0-34.0) Mean Corpuscular Hemoglobin Concent 34.0 % (32.0-36.0) Red Cell Distribution Width 13.0 % (11.6-17.2) Platelet Count 150 TH/MM3 (150-450) Mean Platelet Volume 8.9 FL (7.0-11.0) Blood Urea Nitrogen 24 MG/DL (7-18) Creatinine 0.96 MG/DL (0.60-1.30) Random Glucose 109 MG/DL (74-106) Calcium Level 8.4 MG/DL (8.5-10.1) Phosphorus Level 3.5 MG/DL (2.5-4.9) Magnesium Level 2.3 MG/DL (1.5-2.5) Sodium Level 133 MEQ/L (136-145) Potassium Level 4.0 MEQ/L (3.5-5.1) Chloride Level 97 MEQ/L (98-107) Carbon Dioxide Level 31.2 MEQ/L (21.0-32.0) Anion Gap 5 MEQ/L (5-15) Estimat Glomerular Filtration Rate 79 ML/MIN (>89) Result Diagram: 06/16/17 0412 06/16/17 1028 (1) Ventricular fibrillation Plan: NSR, on po amiodarone/ no further arrhythmia on BB , (2) S/P CABG x 2 Plan: ASA, BB , RICHARD start statin when LFT normalized PT/ OOB pulm toileting (3) Cardiac arrest (4) CAD (coronary artery disease) Plan: (5) Left main coronary artery disease (6) Multi-vessel coronary artery stenosis (7) Elevated LFTs Plan: indices improving start statin (8) Ischemic cardiomyopathy Plan: add richard Leelee Farias Jun 16, 2017 15:21
[2017-06-16] MEDS ORDERED: OXYC1TAB63 PO (15:28)
[2017-06-16] MEDS ORDERED: AMLO5 PO (15:28)
[2017-06-16] MEDS ORDERED: ASPI81 PO (15:28)
[2017-06-16] MEDS ORDERED: THERM PO (15:28)
[2017-06-16] MEDS ORDERED: DOCU1CAP39 PO (15:28)
[2017-06-16] MEDS ORDERED: METO-309 PO (15:28)
[2017-06-16] MEDS ORDERED: LISI-519 PO (15:28)
[2017-06-16] MEDS ORDERED: PLAV75TA29 PO (15:28)
[2017-06-16] MEDS ORDERED: AMIO200T PO (15:28)
[2017-06-16] MEDS: LISINOPRIL 5 MG TAB PO SCH (15:30)
[2017-06-16] MEDS ORDERED: APIX5TAB PO (15:43)
[2017-06-16] MEDS ORDERED: ATORVASTATIN 40 MG TAB PO SCH (21:00)
[2017-06-16] MEDS: SENNOSIDES 8.6 MG TAB PO SCH (21:43)
[2017-06-16] MEDS: APIXABAN 5 MG TABLET PO SCH (21:44)
[2017-06-17] VITALS (15 sets, daily range): BP systolic 116–163; BP diastolic 56–73; PULSE 76–86; RESP 16–18; TEMP 98–98.7; O2SAT 93–96
[2017-06-17] MEDS: oxyCODONE/ACETAMINOPHEN 5 MG/325 MG TAB PO PRN (04:22)
[2017-06-17 05:36] LABS: HEMATOCRIT 23.4 % (39.0-51.0); MEAN CELL VOLUME 94.8 FL (80.0-100.0); MEAN CORPUSCULAR HEMOGLOBIN 32.8 PG (27.0-34.0); MEAN CORPUSCULAR HGB CONC 34.6 % (32.0-36.0); PLATELET COUNT 207 TH/MM3 (150-450); RED BLOOD COUNT 2.47 MIL/MM3 (4.50-5.90); RED CELL DISTRIBUTION WIDTH 13.1 % (11.6-17.2); REVIEW FLAG FINAL; WHITE BLOOD COUNT 6.9 TH/MM3 (4.0-11.0)
[2017-06-17 06:02] LABS: BICARBONATE 28.6 MEQ/L (21.0-32.0); POTASSIUM 3.7 MEQ/L (3.5-5.1)
[2017-06-17] MEDS: PANTOPRAZOLE SOD 40 MG DELAYED RELEASE TAB PO SCH (06:33)
[2017-06-17] MEDS: INSULIN ASPART SUPPLEMENTAL SCALE SQ SCH ×2 (08:00→12:00)
[2017-06-17] MEDS: SODIUM CHLORIDE 0.9% FLUSH 10 ML FLUSH IV FLUSH SCH (09:00)
[2017-06-17] MEDS: MAGNESIUM HYDROXIDE SUSP 30 ML CUP PO SCH (09:00)
[2017-06-17] MEDS: POLYETHYLENE GLYCOL 17 GM PKG PO SCH (09:00)
[2017-06-17] MEDS: amLODIPine BESYLATE 5 MG TAB PO SCH (09:14)
[2017-06-17] MEDS: APIXABAN 5 MG TABLET PO SCH (09:14)
[2017-06-17] MEDS: AMIODARONE 200 MG TAB PO SCH (09:14)
[2017-06-17] MEDS: LISINOPRIL 5 MG TAB PO SCH (09:14)
[2017-06-17] MEDS: DOCUSATE SODIUM 100 MG CAP PO SCH (09:14)
[2017-06-17] MEDS: ASPIRIN 81 MG CHEW TAB PO SCH (09:14)
[2017-06-17] MEDS: METOPROLOL TARTRATE 50 MG TAB PO SCH (09:14)
[2017-06-17] MEDS: MULTIVITAMINS/MINERALS THERAPEUTIC TAB PO SCH (09:14)
[2017-06-17] MEDS ORDERED: POTASSIUM CHLORIDE 20 MEQ CONTROLLED RELEASE TAB PO ONE (09:15)
[2017-06-17] MEDS ORDERED: FUROSEMIDE 40 MG/4 ML VIAL IV PUSH ONE (09:15)
[2017-06-17] MEDS ORDERED: FERR325T18 PO (09:36)
[2017-06-17] MEDS ORDERED: POTASSIUM CHLORIDE 10 MEQ CONTROLLED RELEASE TAB PO ONE (11:00)
--- NOTE | 2017-06-17 11:08 | PD.CARD.PN ---
Subjective Subjective Remarks Up and ambulating with PT, no complaints Over the weekend had episodes of Afib with RVR Off oxygen Objective Medications Current Medications Medications (Trade) Dose Ordered Sig/Margaret Route Start Time Stop Time Status Last Admin Miscellaneous Information 1 Q361D XX 06/07/17 16:45 (Lactulose Liq) 30 ml DAILY PRN PO 06/07/17 16:45 (Norvasc) 5 mg DAILY PO 06/10/17 09:00 06/17/17 09:14 (Xanax) 0.25 mg Q8H PRN PO 06/10/17 18:45 06/11/17 02:03 (NS Flush) 2 ml BID IV FLUSH 06/12/17 21:00 06/17/17 09:00 (NS Flush) 2 ml UNSCH PRN IV FLUSH 06/12/17 12:30 (Aspirin Chew) 81 mg DAILY PO 06/13/17 09:00 06/17/17 09:14 (Protonix) 40 mg DAILY@06 PO 06/13/17 06:00 06/17/17 06:33 (Cordarone) 400 mg Q12HR PO 06/12/17 21:00 06/17/17 09:14 (Tylenol) 650 mg Q4H PRN PO 06/12/17 12:30 (Percocet 5-325 Mg) 1 tab Q3H PRN PO 06/12/17 12:30 06/15/17 04:39 (fentaNYL INJ) 25 mcg Q1H PRN IV PUSH 06/12/17 12:30 06/12/17 22:37 (Zofran Inj) 4 mg Q6H PRN IV PUSH 06/12/17 12:30 (KCl) 20 meq UNSCH PRN PO 06/12/17 12:30 (D50w (Vial) Inj) 50 ml UNSCH PRN IV PUSH 06/12/17 12:30 (Percocet 5-325 Mg) 2 tab Q3HR PRN PO 06/13/17 09:30 06/17/17 04:22 (Colace) 100 mg BID PO 06/13/17 21:00 06/17/17 09:14 (Theragran M Tab) 1 tab DAILY PO 06/14/17 09:00 06/17/17 09:14 (Milk Of Magnesia Liq) 30 ml DAILY PO 06/13/17 09:50 06/15/17 10:38 (Miralax) 17 gm DAILY PO 06/14/17 09:00 06/15/17 10:38 (Senokot) 8.6 mg HS PO 06/13/17 21:00 06/16/17 21:43 (Fleets Enema (Adult)) 118 ml UNSCH PRN RECTAL 06/15/17 09:00 (D50w (Vial) Inj) 50 ml UNSCH PRN IV PUSH 06/13/17 09:30 (Glucagon Inj) 1 mg UNSCH PRN OTHER 06/13/17 09:30 (NovoLOG SUPPLEMENTAL SCALE) 1 ACHS SQ 06/14/17 17:00 06/17/17 08:00 (Duoneb Neb) 1 ampule Q2HR NEB PRN NEB 06/13/17 10:15 06/15/17 14:19 (Lopressor) 50 mg Q12HR PO 06/16/17 09:00 06/17/17 09:14 (Lipitor) 40 mg HS PO 06/16/17 21:00 06/16/17 21:43 (Prinivil) 5 mg DAILY PO 06/16/17 15:30 06/17/17 09:14 (Eliquis) 5 mg BID PO 06/16/17 21:00 06/17/17 09:14 Vital Signs / I&O Vital Signs Date Time Temp Pulse Resp B/P (MAP) Pulse Ox O2 Delivery O2 Flow Rate FiO2 06/17/17 10:00 84 06/17/17 09:00 82 06/17/17 08:00 84 06/17/17 07:00 84 06/17/17 07:00 98.0 84 16 163/73 (103) 95 06/17/17 07:00 95 Room Air 06/17/17 06:00 81 06/17/17 05:55 16 06/17/17 05:04 82 06/17/17 04:00 82 06/17/17 03:00 98.7 81 18 116/56 (76) 93 06/17/17 03:00 93 Room Air 06/17/17 03:00 81 06/17/17 02:00 83 06/17/17 01:00 78 06/17/17 00:00 76 06/16/17 23:00 95 Nasal Cannula 2.00 50 06/16/17 23:00 98.5 77 16 103/56 (72) 95 06/16/17 23:00 74 06/16/17 22:00 90 06/16/17 21:00 92 06/16/17 20:00 92 06/16/17 19:00 99.4 95 18 144/65 (91) 98 06/16/17 19:00 92 06/16/17 19:00 98 Nasal Cannula 2.00 06/16/17 18:00 86 06/16/17 17:48 98 Nasal Cannula 2.00 06/16/17 17:00 89 06/16/17 16:00 93 06/16/17 15:00 98 Nasal Cannula 2.00 06/16/17 15:00 92 06/16/17 15:00 98.3 81 16 139/79 (99) 98 06/16/17 14:00 88 06/16/17 13:00 84 06/16/17 12:00 83 06/16/17 12:00 88 I/O 06/16/17 06/16/17 06/16/17 06/17/17 06/17/17 06/17/17 07:00 15:00 23:00 07:00 15:00 23:00 Intake Total 800 ml 300 ml 840 ml Output Total 600 ml 800 ml Balance 200 ml -500 ml 840 ml Intake Oral 700 ml 300 ml 840 ml IV Total 100 ml Output Urine Total 600 ml 800 ml # Voids 2 3 # Bowel Movements 1 0 1 Physical Exam GENERAL: NAD, AAOx3 SKIN: Warm and dry. HEAD: Atraumatic. Normocephalic. EYES: Pupils equal and round. No scleral icterus. No injection or drainage. ENT: No nasal bleeding or discharge. Mucous membranes pink and moist. NECK: Trachea midline. No JVD. CARDIOVASCULAR: Regular rate and rhythm. Sternotomy with wound vac RESPIRATORY: No accessory muscle use. Clear to auscultation. Breath sounds equal bilaterally. GASTROINTESTINAL: Abdomen soft, non-tender, nondistended. Hepatic and splenic margins not palpable. MUSCULOSKELETAL: Extremities without clubbing, cyanosis, or edema. No obvious deformities. Right groin with no hematoma/ecchymosis. Distal pulses palpable NEUROLOGICAL: Awake and alert. No obvious cranial nerve deficits. Motor grossly within normal limits. Five out of 5 muscle strength in the arms and legs. Normal speech. PSYCHIATRIC: Appropriate mood and affect; insight and judgment normal. Laboratory Laboratory Tests Test 06/17/17 05:07 White Blood Count 6.9 TH/MM3 Red Blood Count 2.47 MIL/MM3 Hemoglobin 8.1 GM/DL Hematocrit 23.4 % Mean Corpuscular Volume 94.8 FL Mean Corpuscular Hemoglobin 32.8 PG Mean Corpuscular Hemoglobin Concent 34.6 % Red Cell Distribution Width 13.1 % Platelet Count 207 TH/MM3 Mean Platelet Volume 9.1 FL Blood Urea Nitrogen 22 MG/DL Creatinine 1.10 MG/DL Random Glucose 187 MG/DL Calcium Level 8.1 MG/DL Sodium Level 133 MEQ/L Potassium Level 3.7 MEQ/L Chloride Level 96 MEQ/L Carbon Dioxide Level 28.6 MEQ/L Anion Gap 8 MEQ/L Estimat Glomerular Filtration Rate 68 ML/MIN Assessment and Plan Problem List: (1) Ventricular fibrillation ICD Codes: I49.01 - Ventricular fibrillation Status: Acute (2) S/P CABG x 2 ICD Codes: Z95.1 - Presence of aortocoronary bypass graft (3) Cardiac arrest ICD Codes: I46.9 - Cardiac arrest, cause unspecified Status: Acute (4) CAD (coronary artery disease) ICD Codes: I25.10 - Atherosclerotic heart disease of [place] coronary artery without angina pectoris (5) Left main coronary artery disease ICD Codes: I25.10 - Atherosclerotic heart disease of [place] coronary artery without angina pectoris (6) Multi-vessel coronary artery stenosis ICD Codes: I25.10 - Atherosclerotic heart disease of [place] coronary artery without angina pectoris (7) Elevated LFTs ICD Codes: R79.89 - Other specified abnormal findings of blood chemistry (8) Ischemic cardiomyopathy ICD Codes: I25.5 - Ischemic cardiomyopathy Assessment and Plan 1) V. Fib arrest Secondary to ischemia Amio PO, wean over 4 weeks No need for Lifevest, discussed with CT surgery 2) NSTEMI/CAD s/p CABGx2 POD #5 SALES to LAD SVG to OM2 3) EF 40%, trace to mild MR 4) ASA/Amio/BB/Statin/RICHARD-I 5) Afib Mostly NSR, con't Amio/BB CHADSVASc = 4 Started on Eliquis Plavix stopped 6) Cardiovascularly stable for discharge Discussed following up with cardiology in [place] DO Jun 17, 2017 11:08
--- NOTE | 2017-06-17 14:02 | HHI.DS ---
Discharge Summary Admission Date Jun 07, 2017 at 16:10 Discharge Date: Jun 17, 2017 Admitting Diagnosis ventricular fibrillation (1) Cardiac arrest Diagnosis: Principal ICD Codes: I46.9 - Cardiac arrest, cause unspecified Status: Acute (2) Ventricular fibrillation Diagnosis: Principal ICD Codes: I49.01 - Ventricular fibrillation Status: Acute (3) CAD (coronary artery disease) Diagnosis: Principal ICD Codes: I25.10 - Atherosclerotic heart disease of [place] coronary artery without angina pectoris (4) Left main coronary artery disease Diagnosis: Principal ICD Codes: I25.10 - Atherosclerotic heart disease of [place] coronary artery without angina pectoris (5) Multi-vessel coronary artery stenosis Diagnosis: Principal ICD Codes: I25.10 - Atherosclerotic heart disease of [place] coronary artery without angina pectoris (6) Ischemic cardiomyopathy Diagnosis: Secondary ICD Codes: I25.5 - Ischemic cardiomyopathy (7) S/P CABG x 2 Diagnosis: Secondary ICD Codes: Z95.1 - Presence of aortocoronary bypass graft Procedures 06/12 1. Urgent Off-pump Coronary Artery Bypass Grafting x 2 with Left Internal Mammary Artery (SALES) to the Left Anterior Descending (LAD), reverse saphenous vein graft to the Obtuse Marginal 2 (OM2) 2. Left Leg Vein [place] 3. Intraoperative Vein Mapping PREPROCEDURE DIAGNOSES 1. Severe Multi-Vessel Coronary Artery Disease. 2 Left Main Disease 3. Mild Left Ventricular Dysfunction 4. Acute Myocardial Infarction 5. Ventricular Fibrillation Cardiac Arrest 6. IABP Circulatory Support Brief History 62-year-old male was apparently at the [employer] car show at [facility] over the weekend. Admit date was 06/07/2017. The patient is visiting from the [facility]. He was walking around the car show. Per the notes from Dr. Perdomo the patient apparently told somebody that he was not feeling well. They got him a chair and when he sat down he passed out. He was found to not have a pulse by an off duty EMS who started CPR. EMS was immediately there. He was found to be in ventricular fibrillation arrest. He was defibrillated twice and was intubated. They were able to get immediate ROSC ,. He subsequently was transferred to our facility where he underwent cardiac cath which showed left main disease of 90%. The LAD had a 90% stenosis in the ostial portion. The left circumflex had a 90% stenosis in the proximal portion. There was a stent in the midportion with a 50% in-stent restenosis. The right coronary artery was small and nondominant. An intra-aortic balloon pump was placed in the dental laboratory manager by Dr. Perdomo for left main disease. PAST MEDICAL HISTORY : . Coronary artery disease with stenting of the RCA; he believes in 2007, Hypertension, Diabetes mellitus, History of prior MO, Hyperlipidemia, Tobacco abuse. CBC/BMP: 06/17/17 0507 06/17/17 0507 Significant Findings Laboratory Tests Test 06/15/17 05:00 06/16/17 04:12 06/16/17 10:28 06/17/17 05:07 Red Blood Count 2.35 MIL/MM3 (4.50-5.90) 2.47 MIL/MM3 (4.50-5.90) 2.47 MIL/MM3 (4.50-5.90) Hemoglobin 7.5 GM/DL (13.0-17.0) 7.9 GM/DL (13.0-17.0) 8.1 GM/DL (13.0-17.0) Hematocrit 22.0 % (39.0-51.0) 23.2 % (39.0-51.0) 23.4 % (39.0-51.0) Platelet Count 125 TH/MM3 (150-450) Blood Urea Nitrogen 37 MG/DL (7-18) 24 MG/DL (7-18) 22 MG/DL (7-18) Creatinine 1.32 MG/DL (0.60-1.30) Random Glucose 112 MG/DL (74-106) 109 MG/DL (74-106) 187 MG/DL (74-106) Calcium Level 8.2 MG/DL (8.5-10.1) 8.4 MG/DL (8.5-10.1) 8.1 MG/DL (8.5-10.1) Sodium Level 131 MEQ/L (136-145) 133 MEQ/L (136-145) 133 MEQ/L (136-145) Chloride Level 96 MEQ/L (98-107) 97 MEQ/L (98-107) 96 MEQ/L (98-107) Estimat Glomerular Filtration Rate 55 ML/MIN (>89) 79 ML/MIN (>89) 68 ML/MIN (>89) Imaging Last Impressions Chest X-Ray 06/13/17 0500 Signed Impressions: Service Date/Time: Tuesday, June 13, 2017 04:39 - CONCLUSION: 1. Left chest tube remains present and no pneumothorax is seen. 2. Severely underinflated examination with bibasilar opacity which could represent atelectasis. Rk Lazar MD Lower Extremity Ultrasound 06/08/17 0000 Signed Impressions: Service Date/Time: Thursday, June 08, 2017 12:49 - CONCLUSION: Venous mapping of the superficial veins of the thigh and calf as measured above. Willie Vasquez MD Carotid Artery Ultrasound 06/08/17 0000 Signed Impressions: Service Date/Time: Thursday, June 08, 2017 12:27 - CONCLUSION: 1. There is mild visible plaque in the carotid arteries bilaterally especially around the bifurcations. No hemodynamically significant stenosis is identified. Hugo Martínez MD PE at Discharge GENERAL: A&0 x 3 SKIN: Warm and dry. sternal incision intact and well approximated, left leg EVH site intact and well approximated HEAD: Normocephalic. EYES: No scleral icterus. No injection or drainage. NECK: Supple, trachea midline. No JVD or lymphadenopathy. CARDIOVASCULAR: Regular rate and rhythm without murmurs, gallops, or rubs. RESPIRATORY: Breath sounds equal bilaterally. No accessory muscle use. GASTROINTESTINAL: Abdomen soft, non-tender, nondistended. MUSCULOSKELETAL: No cyanosis, or edema. BACK: Nontender without obvious deformity. No CVA tenderness. Hospital Course 06/10 remains pain free, on Heparin gtt, BP elevated this am , IABP 1:2 BB increased, amiodarone changed to po, norvasc added PRU returned at 185/ from 198 / plt count 191> [address] Dr [address] and Dr Nelson aware , may need to re-schedule surgery 06/11 repeat PRU done, now 227 for surgery in am , on Heparin gtt, IABP 1:2 good augmentation , good distal pulses pain free 06/12 1. Urgent Off-pump Coronary Artery Bypass Grafting x 2 with Left Internal Mammary Artery (SALES) to the Left Anterior Descending (LAD), reverse saphenous vein graft to the Obtuse Marginal 2 (OM2) 2. Left Leg Vein [place] 3. Intraoperative Vein Mapping crystalloid 2900cc crystalloid, 750cc cell saver, 1300cc EBL extubated after surgery, IABP removed 06/13 pt up in chair, pain controlled chest tube drained 200cc/ 12 hrs recheck LFT on friday, if normalized consider starting statin remains in NSR started on low dose RICHARD transfer to stepdown 06/14/17 No complaints. Episode of AFIB responsive to amiodarone. Back in NSR Cr up to 1.36 06/15/17 Doing well, no complaints Creatinine stable at 1.3 06/16 remains in NSR Felipe v score 4 dc plavix, add eliquis on ASA , taper dose amiodarone wean off 02 for sat > 89% eval for dc tomorrow with [facility] 06/17 on room air, remains in NSR continue amiodarone x 1 month stable for dc to local Hotel with friend , and [facility] will see in office on friday Pt Condition on Discharge: Good Discharge Disposition: Disch w/ Home Health Serv Discharge Instructions DIET: Follow Instructions for: Heart Healthy Diet, Diabetic Diet Activities you can perform: Full Weight Bearing, Shower Only-No Bath Activities to avoid: Strenuous Activity, Driving, Sexual Activity Additional Activity Instructio: no lifting > 8 lbs or gallon of milk Follow up Referrals: Cardiology - [address] Chu Alexander [address] [facility] [id number] PCP Follow-up - 3 Weeks with ROLANDO Chapin [address] [facility] [address] Surgical - 2 Weeks with Leelee Farias New Medications: Apixaban (Eliquis) 5 Mg Tab 5 MG PO BID for Blood Clot Prevention, #60 TAB 2 Refills Ferrous Sulfate (Ferrous Sulfate) 325 Mg (65 Mg Iron) Tablet 325 MG PO BIDPC for Nutritional Supplement, #60 TAB 0 Refills Walker with Front Wheels (Walker with Front Wheels) 1 Mis Mis EA .ROUTE DIRECTED, #1 0 Refills Amiodarone (Amiodarone) 200 Mg Tab 400 MG PO Q12HR for heart regulation, #60 TAB 400mg bid x 5 days, then 200mg bid , then 200mg daily Amlodipine (Norvasc) 5 Mg Tab 5 MG PO DAILY for Blood Pressure Management, #30 TAB 2 Refills Aspirin (Tgt Aspirin) 81 Mg Chw 81 MG PO DAILY for Blood Clot Prevention, #30 EA 2 Refills Docusate Sodium (Dok) 100 Mg Cap 100 MG PO BID for Constipation, #60 CAP 0 Refills Lisinopril (Lisinopril) 5 Mg Tab 5 MG PO DAILY for Blood Pressure Management, #30 TAB 2 Refills Metoprolol Tartrate (Lopressor) 50 Mg Tab 50 MG PO Q12HR for Blood Pressure Management, #60 TAB 2 Refills Multiple Vitamins W/ Minerals (Thera M Plus) 1 Tab 1 TAB PO DAILY for multi vitamin, #30 TAB 2 Refills Oxycodone HCl/Acetaminophen (Oxycodone-Acetaminophen 5-325) 5 Mg-325 Mg Tablet 1 TAB PO Q6H PRN for PAIN SCALE 1 TO 5, #40 TAB 0 Refills Continued Medications: Omeprazole (Omeprazole) 40 Mg Cap 40 MG PO DAILY, #30 CAP 0 Refills Sertraline (Zoloft) 100 Mg Tab 200 MG PO DAILY, #30 TAB 0 Refills Simvastatin (Simvastatin) 40 Mg Tab 40 MG PO DAILY for Cholesterol Management, #30 TAB 0 Refills Discontinued Medications: Atenolol (Atenolol) 25 Mg Tab 25 MG PO DAILY for Blood Pressure Management, #30 TAB Clopidogrel (Plavix) 75 Mg Tab 75 MG PO DAILY for Blood Clot Prevention, #30 TAB 0 Refills Isosorbide Dinitrate (Isosorbide Dinitrate) 30 Mg Tab 30 MG PO DAILY Lisinopril (Lisinopril) 40 Mg Tab 40 MG PO DAILY for Blood Pressure Management, #30 TAB 0 Refills Meloxicam (Meloxicam) 7.5 Mg Tab 7.5 MG PO DAILY for Arthritis Pain, TAB 0 Refills Ranolazine ER 12 HR (Ranexa ER 12 HR) 500 Mg Tab 500 MG PO BID for Chest Pain, #60 TAB 0 Refills Leelee Farias Jun 17, 2017 14:02
== END 2017-06-17 15:20 | disposition home health service (06) | DRG 233 ==
LOC: NEPE 13:31 → NEDA 16:10 → HCVI 19:38 → HCPC 06-13 13:54
PROVIDERS: ADMIT Thoracic Surgery (Cardiothoracic Vascular Surgery); ATTEND Thoracic Surgery (Cardiothoracic Vascular Surgery)
PROC: 5A02210 Assistance with Cardiac Output using Balloon Pump, Continuous (ICD-10-PCS; principal; 2017-06-07)
PROC: 4A023N7 Measurement of Cardiac Sampling and Pressure, Left Heart, Percutaneous Approach (ICD-10-PCS; 2017-06-07)
PROC: B2111ZZ Fluoroscopy of Multiple Coronary Arteries using Low Osmolar Contrast (ICD-10-PCS; 2017-06-07)
PROC: 021009W Bypass Coronary Artery, One Artery from Aorta with Autologous Venous Tissue, Open Approach (ICD-10-PCS; 2017-06-12)
PROC: 06BQ4ZZ Excision of Left Saphenous Vein, Percutaneous Endoscopic Approach (ICD-10-PCS; 2017-06-12)
PROC: 02100Z9 Bypass Coronary Artery, One Artery from Left Internal Mammary, Open Approach (ICD-10-PCS; 2017-06-12 07:22)
DX: I49.01 Ventricular fibrillation (principal); I21.4 Non-ST elevation (NSTEMI) myocardial infarction; N17.9 Acute kidney failure, unspecified; T82.855A Stenosis of coronary artery stent, initial encounter; I25.10 Atherosclerotic heart disease of native coronary artery without angina pectoris; E66.01 Morbid (severe) obesity due to excess calories; I10 Essential (primary) hypertension; R55 Syncope and collapse; I25.2 Old myocardial infarction; F17.290 Nicotine dependence, other tobacco product, uncomplicated; Z95.5 Presence of coronary angioplasty implant and graft; Z79.82 Long term (current) use of aspirin; I47.2 Ventricular tachycardia; R11.0 Nausea; E11.9 Type 2 diabetes mellitus without complications; E78.5 Hyperlipidemia, unspecified; I34.0 Nonrheumatic mitral (valve) insufficiency; I48.91 Unspecified atrial fibrillation; R79.89 Other specified abnormal findings of blood chemistry; I25.5 Ischemic cardiomyopathy
CPT/HCPCS: 33967; 36430; 71010; 80048; 80053; 80061; 81001; 82550; 82948; 83036; 83735; 84100; 84443; 84484; 85007; 85014; 85025; 85027; 85576; 85610; 85730; 86850; 86900; 86901; 86920; 87641; 93005; 93306; 93458; 93880; 93970; 93998; 94002; 94010; 94150; 94640; 94664; 94667; 94668; 96365; 96375; C1769; C1893; J0131; J0282; J0360; J1265; J1644; J1815; J1940; J2250; J2370; J2405; J2440; J3010; J3370; J3475; J7030; J7040; J7060; P9016; P9045; Q9967